=== PATIENT | female | born 1960 | race Caucasian/White ===

== ENCOUNTER 2017-05-25 19:14 | Inpatient (IN) | payer SELFPAY ==
[~2017-05-25] VITALS: Ht 171.4 cm; Wt 168.5 kg
[~2017-05-25 19:14] MED LIST: ACET325T9 PO; CARV3.122 PO; IBUP200T58 PO; IPRA3AMP NEB; LISI2.5T PO
[2017-05-25 22:30] VITALS: BP 114/71
[2017-05-25 23:00] VITALS: BP 129/76
[2017-05-25] MEDS ORDERED: hydrALAZINE 20 MG/ML VIAL. IVP PRN (23:00)
[2017-05-25] MEDS ORDERED: diphenhydrAMINE HCL 25 MG CAPSULE PO PRN (23:00)
[2017-05-25] MEDS ORDERED: ONDANSETRON ODT 4 MG TAB.RAPDIS. PO PRN (23:00)
[2017-05-25] MEDS ORDERED: ACETAMINOPHEN 325 MG TABLET. PO PRN (23:00)
[2017-05-25] MEDS ORDERED: 0.9 % SODIUM CHLORIDE 10 ML DISP.SYRIN. IV PRN (23:00)
[2017-05-25] MEDS ORDERED: VANCOMYCIN 1 GM in IV NORMAL SALINE 250ML 250 ML IV SCH (23:00)
[2017-05-25] MEDS ORDERED: METOCLOPRAMIDE HCL 10 MG/2 ML VIAL. IV PRN (23:00)
[2017-05-25] MEDS ORDERED: VANCOMYCIN PER PHARMACY MC PRN (23:00)
[2017-05-25] MEDS ORDERED: BISACODYL 10 MG SUPP.RECT. PR PRN (23:00)
[2017-05-25] MEDS: POTASSIUM CL 20MEQ-0.45% NACL 1,000 ML IV SCH (23:37)
[2017-05-25] MEDS: AZITHROMYCIN 500 MG in IV NORMAL SALINE 250ML 250 ML IV SCH (23:37)
[2017-05-25 23:42] VITALS: BP 114/71
--- NOTE | 2017-05-25 23:53 | PDOC1 ---
History and Physical Date of Admission Date of Admission DATE: 05/25/17 TIME: 23:17 Identification/Chief Complaint Chief Complaint cellulitis dysphagia abn CT chest Problems: Source Source: Patient History of Present Illness History of Present Illness Mrs Hannah is a 57 y/o morbidly obese Woman who had presented with abd swelling and erythema below her belt on her pannus as well as on her lower legs to the ER at [facility]. She was started on broad spectrum antibiotics incl vanco with some improvement in her legs, but growing area erythema on her abdomen (suspicious for red man syndrome). Her upper abd swelling improved, but she developed worsening dysphagia, and nausea. She relates that she has had episodic dysphagia for the past year, with feeling of food getting stuck in her upper chest. Nausea is less prominent, but has been present in the past as well. She has not been able to eat today because of it. She endorses constipation, not having had a BM since Thursday. Denies abdominal pain. On further W/U at [facility], she was found with bilateral lung opacities of unclear etiology, infectious vs sarcoid vs malignancy. She is now transferred to [facility] for subspecialty evaluation for her multiple issues Past Medical History Cardiovascular: CHF, HTN Pulmonary: No pertinent hx GI: GERD Past Surgical History Past Surgical History: No pertinent history Family History Family History: Cancer, Heart Disease Social History Smoke: No ALCOHOL: none Drugs: None Current Medications Current Medications Active Scripts Active Lisinopril 2.5 Mg Tablet 2.5 Mg PO DAILY 30 Days Carvedilol 3.125 Mg Tablet 3.125 Mg PO BIDWMEALS 30 Days Reported Duoneb 0.5-3(2.5) Mg/3 Ml (Albuterol/Ipratropium) 3 Ml Ampul.neb 3 Ml NEB QID Allergies Allergies: Coded Allergies: Penicillins (Verified Allergy, Intermediate, severe hives, 04/17/16) ROS Review of System positive as per HPI; rest of ROS is answered negatively Physical Exam Physical Exam massively obese General: Alert, Oriented X3, Cooperative, No acute distress HEENT: Atraumatic, EOMI Lungs: Clear to auscultation, Normal air movement Heart: RRR, no murmurs Abdomen: Normal bowel sounds, Soft, Other (massively obese, organs could not be palpated) Extremities: No clubbing, Other (mildly pitting edema. bilat LE erythema with weeping spot on post R LE, mult excoriations) Skin: Other (cellulitic rash BLE. erythematous rash over lower toso; deep purple discoloration on lower pannus L, cold to touch (?lovenox injection)) Neuro: Normal speech Psych/Mental Status: Other (tearful; state she is all alone after losing brother and mother in the past 4 years. ) VTE Prophylaxis Ordered VTE Prophylaxis Devices: Yes VTE Pharmacological Prophylaxi: No Assessment/Plan Assessment/Plan Mrs Hannah is an unfortunate 57 y/o morbidly obese woman with several ongoing medical isssues: 1. Cellulitis: on LE as well as pannus acc. to patient. She has been on vanco for this. ?developing Red-man syndrome vs ongoing rash on abd. consult ID. 2. Dysphagia and nausea, which have been waxing and waning over the past year. With her body habitus, GERD is high on the list. However, cannot exclude esophageal stricture, gastroparesis or other issues. clear liquids for now, reglan PRN, continue PPI, GI consult 3. Constipation is new for her. has bowel regimen ordered. this may be involved in her nausea as well. 4. Abn CT chest: relatively asymptomatic from a respiratory standpoint. obtain Pulm consult. 5. She has a diagnosis of chronic systolic CHF with and EF of 30% at cath 1 year ago. no CAD was noted at the procedure. her home medications, incl lasix , will be continued. 6. DVT prophylaxis will be obtained with SCDs only, as she has a large area of hematoma on her pannus attributed to an injection. monitor closely for development of gangrenous changes (area is cold to touch) FELIX AN MD May 25, 2017 23:53
[2017-05-26] VITALS (8 sets, daily range): BP systolic 96–124; BP diastolic 53–90
[2017-05-26 04:54] LABS: ALBUMIN 2.9 g/dL (3.4-5.0); ALBUMIN/GLOBULIN RATIO 0.6 (1.0-1.7); CALCIUM 8.3 mg/dL (8.5-10.1); CREATININE 1.5 mg/dL (0.6-1.0); GFR 35.7; POTASSIUM 5.7 mmol/L (3.5-5.1); TOTAL BILIRUBIN 0.7 mg/dL (0.2-1.0); TOTAL PROTEIN 7.6 g/dL (6.4-8.2)
[2017-05-26 04:57] LABS: BASO # 0.1 x10^3/uL (0.0-0.2); BASO % 1 % (0-3); EOS % 7 % (0-3); HEMATOCRIT 40.4 % (36.0-47.0); HEMOGLOBIN 13.4 g/dL (12.0-15.5); LYMPH # 2.4 x10^3/uL (1.0-4.8); LYMPH % 23 % (24-48); MEAN CORPUSCULAR HEMOGLOBIN 30 pg (25-35); MEAN CORPUSCULAR HGB CONC 33 g/dL (31-37); MEAN CORPUSCULAR VOLUME 91 fL (79-100); MONO % 9 % (0-9); NEUT % 60 % (31-73); PLATELET COUNT 249 x10^3/uL (140-400); RED BLOOD COUNT 4.43 x10^6/uL (3.50-5.40); RED CELL DISTRIBUTION WIDTH 14.9 % (11.5-14.5); WHITE BLOOD COUNT 10.5 x10^3/uL (4.0-11.0)
--- NOTE | 2017-05-26 05:04 | ACF ---
Admission Forms Criteria CELLULITIS Clinical Indications for Admission to Inpatient Care (Place 'X' for any and all applicable criteria): Admission is indicated for ANY ONE of the following(1)(2)(3)(4)(5): [ ]I. Limb-threatening infection [ ]II. High-risk comorbid condition as indicated by ANY ONE of the following: [ ]a) Uncontrolled diabetes (eg, HbA1c greater than 10% (0.1)) [ ]b) Cirrhosis [ ]c) Neutropenia [ ]d) Asplenia [ ]e) Immunosuppression [ ]f) Symptomatic heart failure [ ]III. Failure of outpatient therapy as indicated by ALL of the following: [ ]a) Progression or no improvement after adequate trial (minimum of 48 hours, with longer period for stable lower extremity infection) [ ]b) Adequate antibiotic regimen as indicated by use of ANY ONE of the following: [ ]i) First-generation cephalosporin (e.g., cephalexin) [ ]ii) Antistaphylococcal penicillin (e.g., dicloxacillin) [ ]iii) Penicillin-allergic patient regimen (clindamycin, extended-spectrum fluoroquinolone, or doxycycline) [ ]iv) Resistant organism (eg, methicillin-resistant Staphylococcus aureus) regimen (6) [ ]c) Outpatient intravenous therapy regimen is not appropriate due to ANY ONE of the following. (7)(8)(9)(10): [ ]i) It was tried and was not successful (eg, progression of infection). [ ]ii) It is not available or cannot be arranged in a clinically appropriate time frame (e.g., the next day). [ ]iii) Clinical presentation (eg, acuity of infection, rapidity of progression, confirmed or suspected bacteremia) is judged to require ALL of the following: [ ]1) Immediate initiation of intravenous therapy ( eg, cannot wait for next day) [ ]2) Intensity of patient monitoring and observation (eg, vital sign measurement, checks for infection progression) that cannot be provided at other than inpatient level of care [ ]IV. Mental status changes [ ]V. Bacteremia [ ]. Hemodynamic instability [ ]VII. Suspected necrotizing soft tissue infection (e.g., gas in tissue)(11)( 12) [ ]VIII. Orbital infection (13)(14) [ ]IX. Associated surgical procedure (e.g., abscess drainage, debridement) not amenable to outpatient, emergency department, or observation care [ ]X. Cutaneous gangrene [ ]XI. High fever (temperature greater than 39.5 degrees C (103.1 degrees F) (oral)) not responsive to outpatient, emergency department, or observation care therapy [X]XIII. Inpatient admission required rather than observation care (Also use Cellulitis: Observation Care as appropriate) because of ANY ONE of the following : [ ]a) Periorbital or perineal infection that is severe or worsening [ ]b) Severe pain requiring acute inpatient management [ ]c) IV fluid to replace significant ongoing (e.g., for over 24 hours) losses (greater than 3L/m2 per day) [ ]d) Compartment syndrome monitoring (17) [ ]e) Strict or protective (eg, laminar flow) isolation [ ]f) Urgent debridement or skin grafting [ ]g) Bone or joint debridement [ ]h) Immediate inpatient surgery [X]i) Other condition, treatment or monitoring requiring inpatient admission Extended stay beyond goal length of stay may be needed for (1)(18): [ ]a) Necrotizing soft tissue infection or fasciitis [ ]b) Gram-negative infection [ ]c) Methicillin-resistant Staphylococcal aureus (MRSA) infection [ ]d) Peripheral venous insufficiency with cellulitis [ ]e) Extensive edema [ ]f) Sepsis or continued Hemodynamic instability [ ]g) Continued high fever or mental status change [ ]h) Bacteremia [ ]i) Active serious comorbid conditions ( eg, heart failure, renal insufficiency) The original [facility] content created by [facility] has been revised. The portions of the content which have been revised are identified through the use of italic text or in bold, and [facility] has neither reviewed nor approved the modified material. All other unmodified content is copyright [facility] [employer] Please see references footnoted in the original [facility] [employer] edition 2016 Admission Criteria Met?: Yes MARTA LE May 26, 2017 05:04 FELIX AN MD May 26, 2017 18:56
[2017-05-26] MEDS ORDERED: ASPI-482 PO (07:41)
[2017-05-26] MEDS ORDERED: POTASSIUM CHLORIDE 20 MEQ TABLET.ER. PO SCH (08:00)
[2017-05-26] MEDS ORDERED: POLYETHYLENE GLYCOL 3350 17 GM PACKET. PO SCH (09:00)
[2017-05-26] MEDS ORDERED: FUROSEMIDE 40 MG TABLET. PO SCH (09:00)
[2017-05-26] MEDS ORDERED: LISINOPRIL 2.5 MG TABLET PO SCH (09:00)
[2017-05-26] MEDS: ASPIRIN 325 MG TABLET PO SCH (09:18)
[2017-05-26] MEDS: CARVEDILOL 3.125 MG TABLET. PO SCH ×2 (09:18→16:40)
[2017-05-26] MEDS: FLUCONAZOLE 100 MG TABLET. PO SCH (09:19)
[2017-05-26] MEDS: FUROSEMIDE 40 MG TABLET. PO SCH (09:19)
[2017-05-26] MEDS: PRAMIPEXOLE 0.25 MG TABLET. PO SCH ×3 (09:20→20:55)
[2017-05-26] MEDS: NYSTATIN TOPICAL POWDER 15GM BOTTLE. TP SCH ×2 (09:21→20:56)
[2017-05-26] MEDS: FLUOCINONIDE 0.05% TOPICAL CREAM 15 GM TUBE. TP SCH ×2 (09:21→20:56)
--- NOTE | 2017-05-26 09:34 | PDOC2 ---
GI CONSULT Reason For Consult: Dysphagia, ?stricture HPI: HPI: 57 y/o female transferred from [facility] for cellulitis/swelling, apparently some concern for red man syndrome w/ vancomycin. Additionally noted was abnormal chest CT. ID and pulm to see. GI consult requested re: dysphagia. She tells me for "years" has had issues w/ right-sided globus w/ swallowing pills. No problems w/ solids or liquids. No regurg. H/o GERD when her father was alive; she is tearful describing this and tells me he was "lam," but apparently no reflux/heartburn/indigestion since he has passed. Also has had some trouble w/ constipation recently although did have a BM yesterday "but it was slow." No hematochezia or melena. No previous EGD or colonoscopy. PRN use of Tylenol or Advil or ASA for headaches, etc. GI-jean has been started on Miralax QD and Reglan PRN. PMH: PMH: CHF, HTN, HLD, COPD, panic/anxiety/depression, umbilical hernia FH: Family History: CAD, Other (Alzheimer's) Social History: Smoke: Quit ALCOHOL: none Drugs: None ROS: GEN: Denies fevers, chills, sweats HEENT: Denies blurred vision, sore throat CV: Denies chest pain RESP: Denies shortness of air, cough GI: Per HPI : Denies hematuria, dysuria ENDO: Denies weight changes NEURO: Denies confusion, dizziness MSK: Denies weakness, joint pain/swelling SKIN: erythema Vitals: Vitals: Vital Signs Date Time Temp Pulse Resp B/P (MAP) Pulse Ox O2 Delivery O2 Flow Rate FiO2 05/26/17 09:20 90 120/65 05/26/17 07:00 97.6 22 90 Nasal Cannula 2.0 97.6 Labs: Labs: Laboratory Tests Test 05/26/17 03:50 White Blood Count 10.5 x10^3/uL (4.0-11.0) Red Blood Count 4.43 x10^6/uL (3.50-5.40) Hemoglobin 13.4 g/dL (12.0-15.5) Hematocrit 40.4 % (36.0-47.0) Mean Corpuscular Volume 91 fL (79-100) Mean Corpuscular Hemoglobin 30 pg (25-35) Mean Corpuscular Hemoglobin Concent 33 g/dL (31-37) Red Cell Distribution Width 14.9 % (11.5-14.5) Platelet Count 249 x10^3/uL (140-400) Neutrophils (%) (Auto) 60 % (31-73) Lymphocytes (%) (Auto) 23 % (24-48) Monocytes (%) (Auto) 9 % (0-9) Eosinophils (%) (Auto) 7 % (0-3) Basophils (%) (Auto) 1 % (0-3) Neutrophils # (Auto) 6.2 x10^3uL (1.8-7.7) Lymphocytes # (Auto) 2.4 x10^3/uL (1.0-4.8) Monocytes # (Auto) 1.0 x10^3/uL (0.0-1.1) Eosinophils # (Auto) 0.7 x10^3/uL (0.0-0.7) Basophils # (Auto) 0.1 x10^3/uL (0.0-0.2) Sodium Level 139 mmol/L (136-145) Potassium Level 5.7 mmol/L (3.5-5.1) Chloride Level 103 mmol/L (98-107) Carbon Dioxide Level 30 mmol/L (21-32) Anion Gap 6 (6-14) Blood Urea Nitrogen 26 mg/dL (7-20) Creatinine 1.5 mg/dL (0.6-1.0) Estimated GFR (Cockcroft-Gault) 35.7 BUN/Creatinine Ratio 17 (6-20) Glucose Level 115 mg/dL (70-99) Calcium Level 8.3 mg/dL (8.5-10.1) Total Bilirubin 0.7 mg/dL (0.2-1.0) Aspartate Amino Transf (AST/SGOT) 40 U/L (15-37) Alanine Aminotransferase (ALT/SGPT) 27 U/L (14-59) Alkaline Phosphatase 100 U/L (46-116) Total Protein 7.6 g/dL (6.4-8.2) Albumin 2.9 g/dL (3.4-5.0) Albumin/Globulin Ratio 0.6 (1.0-1.7) Allergies: Coded Allergies: Penicillins (Verified Allergy, Intermediate, severe hives, 04/17/16) Medications: Current Medications Medications (Trade) Dose Ordered Sig/Pasquale Route PRN Reason Start Time Stop Time Status Last Admin Dose Admin Fluconazole (Diflucan) 100 mg DAILY PO 05/26/17 09:00 05/26/17 09:19 Vancomycin HCl (Vanco Per Pharmacy) 1 each PRN DAILY PRN MC SEE COMMENTS 05/25/17 23:00 05/26/17 05:48 Aspirin (Anirudh Aspirin) 325 mg DAILYWBKFT PO 05/26/17 08:00 05/26/17 09:18 Carvedilol (Coreg) 3.125 mg BIDWMEALS PO 05/26/17 08:00 05/26/17 09:18 Lisinopril (Prinivil) 2.5 mg DAILY PO 05/26/17 09:00 05/26/17 09:20 Ceftriaxone Sodium 1 gm/ Sodium Chloride 50 ml @ 100 mls/hr QHS IV 05/25/17 23:30 05/25/17 23:36 Azithromycin 500 mg/Sodium Chloride 250 ml @ 250 mls/hr QHS IV 05/25/17 23:30 05/25/17 23:37 Nystatin (Nystop) 1 ria BID TP 05/26/17 09:00 05/26/17 09:21 Polyethylene Glycol (miraLAX PACKET) 17 gm DAILY PO 05/26/17 09:00 05/26/17 09:19 Pramipexole Dihydrochloride (miraPEX) 0.25 mg [id number] PO 05/26/17 09:00 05/26/17 09:20 Furosemide (Lasix) 40 mg DAILY PO 05/26/17 09:00 05/26/17 09:19 Metoclopramide HCl (Reglan) 10 mg PRN Q6HRS PRN IV NAUSEA/VOMITING 05/25/17 23:00 05/26/17 03:15 Potassium Chloride/Sodium Chloride 1,000 ml @ 75 mls/hr [id number] IV 05/25/17 23:00 05/25/17 23:37 Imaging: Imaging: - PE: GEN: NAD, up to chair, obese HEENT: Atraumatic, PERRL LUNGS: clear anteriorly HEART: RRR ABD: BS+, non-tender EXTREMITY: BLE wrapped SKIN: abd erythema NEURO/PSYCH: A & O 3, intermittently tearful when talking about her father and managers A/P: A/P: Cellulitis -atbx per ID Abnormal chest CT -pulm to see Globus/dysphagia -bothersome for years, right-sided, felt only w/ pills, has Reglan PRN ordered H/o GERD, no longer symptomatic -?associated w/ stress Constipation -more recent onset, has Miralax ordered CRC screen -no previous colonoscopy -- Empirically treat for GERD w/ PPI, also increase Miralax. No emergent need for EGD; however, will check barium swallow (?Zenker's). JUNIE PEOPLES May 26, 2017 09:34
[2017-05-26] MEDS ORDERED: SIMETHICONE/SOD BICARB/CITRIC ACID PACKET. PO ONE (10:30)
[2017-05-26] MEDS ORDERED: BARIUM SULFATE 340 GM SUSPENSION. PO ONE (10:30)
[2017-05-26] MEDS ORDERED: BARIUM SULFATE 60% 355 ML SUSP PO ONE (10:30)
--- NOTE | 2017-05-26 11:51 | RAD ---
Esophagram, 05/26/2017: History: Dysphagia, pulmonary. The study was performed utilizing thin liquid barium. 1.7 minutes of fluoroscopy time was utilized. 6 static and dynamic fluoroscopic sequences were recorded. The swallowing mechanism is intact. There is normal flow of contrast through the cervical esophagus. No Zenker's diverticulum or obstructive process is seen. The esophageal peristalsis is within normal limits. There is a small sliding-type hiatal hernia with a nonobstructive Schatzki's ring. No gastroesophageal reflux was demonstrated. IMPRESSION: 1. Small sliding-type hiatal hernia. 2. Otherwise negative esophagram
[2017-05-26] MEDS: PANTOPRAZOLE 40 MG TABLET.DR. PO SCH (12:11)
--- NOTE | 2017-05-26 12:52 | PDOC2 ---
CONSULT Date of Consult Date of Consult DATE: 05/26/17 TIME: 12:46 Reason for Consult Reason for Consult: abnormal ct chest Identification/Chief Complaint Chief Complaint cough Problems: History of Present Illness Reason for Visit: Mrs Hannah is a 57 y/o morbidly obese Woman who had presented with abd swelling and erythema below her belt on her pannus as well as on her lower legs to the ER at [facility]. She was started on broad spectrum antibiotics incl vanco with some improvement in her legs, but growing area erythema on her abdomen (suspicious for red man syndrome). Her upper abd swelling improved, but she developed worsening dysphagia, and nausea. She relates that she has had episodic dysphagia for the past year, with feeling of food getting stuck in her upper chest. Nausea is less prominent, but has been present in the past as well. She has not been able to eat today because of it. She endorses constipation, not having had a BM since Thursday. Denies abdominal pain. On further W/U at [facility], she was found with bilateral lung opacities of unclear etiology, infectious vs sarcoid vs malignancy. She is now transferred to [facility] for subspecialty evaluation for her multiple issues Past Medical History Cardiovascular: CHF, HTN Pulmonary: No pertinent hx GI: GERD Past Surgical History Past Surgical History: No pertinent history Family History Family History: Cancer, Heart Disease Social History Quit ALCOHOL: none Drugs: None Current Medications Current Medications Current Medications Fluconazole (Diflucan) 100 mg DAILY PO Last administered on 05/26/17 09:19; Start 05/26/17 at 09:00 Vancomycin HCl (Vanco Per Pharmacy) 1 each PRN DAILY PRN MC SEE COMMENTS Last administered on 05/26/17 05:48; Start 05/25/17 at 23:00 Acetaminophen (Tylenol) 650 mg PRN Q6HRS PRN PO MILD PAIN; Start 05/25/17 at 23 :00 Aspirin (Anirudh Aspirin) 325 mg DAILYWBKFT PO Last administered on 05/26/17 09: 18; Start 05/26/17 at 08:00 Carvedilol (Coreg) 3.125 mg BIDWMEALS PO Last administered on 05/26/17 09:18; Start 05/26/17 at 08:00 Hydralazine HCl (Apresoline) 10 mg PRN Q6HRS PRN IVP ELEVATED BP, SEE COMMENTS ; Start 05/25/17 at 23:00 Lisinopril (Prinivil) 2.5 mg DAILY PO Last administered on 05/26/17 09:20; Start 05/26/17 at 09:00 Potassium Chloride (Klor-Con) 20 meq DAILYWBKFT PO ; Start 05/26/17 at 08:00 Albuterol/ Ipratropium (Duoneb) 3 ml RTQID NEB ; Start 05/26/17 at 08:00 Ondansetron HCl (Zofran Odt) 4 mg PRN Q8HRS PRN PO NAUSEA/VOMITING; Start 05/25 at 23:00 Ceftriaxone Sodium 1 gm/ Sodium Chloride 50 ml @ 100 mls/hr QHS IV Last administered on 05/25/17 23:36; Start 05/25/17 at 23:30 Azithromycin 500 mg/Sodium Chloride 250 ml @ 250 mls/hr QHS IV Last administered on 05/25/17 23:37; Start 05/25/17 at 23:30 Nystatin (Nystop) 1 ria BID TP Last administered on 05/26/17 09:21; Start 10/02 at 09:00 Diphenhydramine HCl (Benadryl) 25 mg PRN Q6HRS PRN PO ITCHING; Start 05/25/17 at 23:00 Enoxaparin Sodium (Lovenox 60mg Syringe) 60 mg Q12HR SQ ; Start 05/26/17 at 09: 00 Polyethylene Glycol (miraLAX PACKET) 17 gm DAILY PO Last administered on 09:19; Start 05/26/17 at 09:00; Stop 05/26/17 at 09:35; Status DC Pramipexole Dihydrochloride (miraPEX) 0.25 mg [id number] PO Last administered on 09:20; Start 05/26/17 at 09:00 Bisacodyl (Dulcolax Supp) 10 mg PRN DAILY PRN [place] CONSTIPATION; Start 05/25/17 at 23:00 Furosemide (Lasix) 40 mg DAILY PO ; Start 05/26/17 at 09:00; Status UNV Fluocinonide (Lidex) 1 ria BID TP ; Start 05/26/17 at 09:00 Vancomycin HCl 1 gm/Sodium Chloride 250 ml @ 250 mls/hr Q24H IV ; Start at 23:00; Status UNV Furosemide (Lasix) 40 mg DAILY PO Last administered on 05/26/17 09:19; Start 05/26/17 at 09:00 Metoclopramide HCl (Reglan) 10 mg PRN Q6HRS PRN IV NAUSEA/VOMITING Last administered on 05/26/17 03:15; Start 05/25/17 at 23:00 Sodium Chloride (Normal Saline Flush) 3 ml PRN DAILY PRN IV AFTER MEDS AND BLOOD DRAWS; Start 05/25/17 at 23:00 Potassium Chloride/Sodium Chloride 1,000 ml @ 75 mls/hr [id number] IV Last administered on 05/25/17 23:37; Start 05/25/17 at 23:00 Vancomycin HCl 1 each 1X ONCE MC ; Start 05/26/17 at 17:30; Stop 05/26/17 at 17 :31 Vancomycin HCl 2 gm/Sodium Chloride 500 ml @ 250 mls/hr Q24H IV ; Start at 18:00 Polyethylene Glycol (miraLAX PACKET) 17 gm BID PO ; Start 05/26/17 at 21:00 Pantoprazole Sodium (Protonix) 40 mg DAILYAC PO ; Start 05/26/17 at 11:30 Barium Sulfate (Liquid E-Z Paque) 355 ml 1X ONCE PO Last administered on 11:14; Start 05/26/17 at 10:30; Stop 05/26/17 at 10:31; Status DC Barium Sulfate (E-Z-Hd) 340 gm 1X ONCE PO ; Start 05/26/17 at 10:30; Stop 05/26 at 10:31; Status DC Simethicone/ Sodium Bicarb/ Citric Ac (E-Z-Gas) 1 packet 1X ONCE PO ; Start 10/02 at 10:30; Stop 05/26/17 at 10:31; Status DC Active Scripts Active Lisinopril 2.5 Mg Tablet 2.5 Mg PO DAILY 30 Days Carvedilol 3.125 Mg Tablet 3.125 Mg PO BIDWMEALS 30 Days Reported Aspir 81 (Aspirin) 81 Mg Tablet.dr 1 Tab PO DAILY Duoneb 0.5-3(2.5) Mg/3 Ml (Albuterol/Ipratropium) 3 Ml Ampul.neb 3 Ml NEB QID Allergies Allergies: Coded Allergies: Penicillins (Verified Allergy, Intermediate, severe hives, 04/17/16) ROS Review of System as discussed in h/o present illness Physical Exam General: Alert, Oriented X3, No acute distress Lungs: Clear to auscultation Heart: Regular rate, Normal S1 Abdomen: Other (cellulitis lower abdomen) Extremities: No clubbing Psych/Mental Status: Mental status NL Vitals VITALS Vital Signs Date Time Temp Pulse Resp B/P (MAP) Pulse Ox O2 Delivery O2 Flow Rate FiO2 05/26/17 11:00 98.3 89 22 124/90 (101) 90 Nasal Cannula 2.0 98.3 Labs Labs Laboratory Tests Test 05/26/17 03:50 White Blood Count 10.5 x10^3/uL (4.0-11.0) Red Blood Count 4.43 x10^6/uL (3.50-5.40) Hemoglobin 13.4 g/dL (12.0-15.5) Hematocrit 40.4 % (36.0-47.0) Mean Corpuscular Volume 91 fL (79-100) Mean Corpuscular Hemoglobin 30 pg (25-35) Mean Corpuscular Hemoglobin Concent 33 g/dL (31-37) Red Cell Distribution Width 14.9 % (11.5-14.5) Platelet Count 249 x10^3/uL (140-400) Neutrophils (%) (Auto) 60 % (31-73) Lymphocytes (%) (Auto) 23 % (24-48) Monocytes (%) (Auto) 9 % (0-9) Eosinophils (%) (Auto) 7 % (0-3) Basophils (%) (Auto) 1 % (0-3) Neutrophils # (Auto) 6.2 x10^3uL (1.8-7.7) Lymphocytes # (Auto) 2.4 x10^3/uL (1.0-4.8) Monocytes # (Auto) 1.0 x10^3/uL (0.0-1.1) Eosinophils # (Auto) 0.7 x10^3/uL (0.0-0.7) Basophils # (Auto) 0.1 x10^3/uL (0.0-0.2) Sodium Level 139 mmol/L (136-145) Potassium Level 5.7 mmol/L (3.5-5.1) Chloride Level 103 mmol/L (98-107) Carbon Dioxide Level 30 mmol/L (21-32) Anion Gap 6 (6-14) Blood Urea Nitrogen 26 mg/dL (7-20) Creatinine 1.5 mg/dL (0.6-1.0) Estimated GFR (Cockcroft-Gault) 35.7 BUN/Creatinine Ratio 17 (6-20) Glucose Level 115 mg/dL (70-99) Calcium Level 8.3 mg/dL (8.5-10.1) Total Bilirubin 0.7 mg/dL (0.2-1.0) Aspartate Amino Transf (AST/SGOT) 40 U/L (15-37) Alanine Aminotransferase (ALT/SGPT) 27 U/L (14-59) Alkaline Phosphatase 100 U/L (46-116) Total Protein 7.6 g/dL (6.4-8.2) Albumin 2.9 g/dL (3.4-5.0) Albumin/Globulin Ratio 0.6 (1.0-1.7) Laboratory Tests Test 05/26/17 03:50 White Blood Count 10.5 x10^3/uL (4.0-11.0) Red Blood Count 4.43 x10^6/uL (3.50-5.40) Hemoglobin 13.4 g/dL (12.0-15.5) Hematocrit 40.4 % (36.0-47.0) Mean Corpuscular Volume 91 fL (79-100) Mean Corpuscular Hemoglobin 30 pg (25-35) Mean Corpuscular Hemoglobin Concent 33 g/dL (31-37) Red Cell Distribution Width 14.9 % (11.5-14.5) Platelet Count 249 x10^3/uL (140-400) Neutrophils (%) (Auto) 60 % (31-73) Lymphocytes (%) (Auto) 23 % (24-48) Monocytes (%) (Auto) 9 % (0-9) Eosinophils (%) (Auto) 7 % (0-3) Basophils (%) (Auto) 1 % (0-3) Neutrophils # (Auto) 6.2 x10^3uL (1.8-7.7) Lymphocytes # (Auto) 2.4 x10^3/uL (1.0-4.8) Monocytes # (Auto) 1.0 x10^3/uL (0.0-1.1) Eosinophils # (Auto) 0.7 x10^3/uL (0.0-0.7) Basophils # (Auto) 0.1 x10^3/uL (0.0-0.2) Sodium Level 139 mmol/L (136-145) Potassium Level 5.7 mmol/L (3.5-5.1) Chloride Level 103 mmol/L (98-107) Carbon Dioxide Level 30 mmol/L (21-32) Anion Gap 6 (6-14) Blood Urea Nitrogen 26 mg/dL (7-20) Creatinine 1.5 mg/dL (0.6-1.0) Estimated GFR (Cockcroft-Gault) 35.7 BUN/Creatinine Ratio 17 (6-20) Glucose Level 115 mg/dL (70-99) Calcium Level 8.3 mg/dL (8.5-10.1) Total Bilirubin 0.7 mg/dL (0.2-1.0) Aspartate Amino Transf (AST/SGOT) 40 U/L (15-37) Alanine Aminotransferase (ALT/SGPT) 27 U/L (14-59) Alkaline Phosphatase 100 U/L (46-116) Total Protein 7.6 g/dL (6.4-8.2) Albumin 2.9 g/dL (3.4-5.0) Albumin/Globulin Ratio 0.6 (1.0-1.7) Assessment/Plan Assessment/Plan 1. Abnormal ct chest with bilateral lung opacities of unclear etiology, infectious vs sarcoid vs malignancy (lymphoma). These findings were also seen in 2016 ct chest but axillary adenopathy have increased/ ? lymphoma vs sarcoid. An infectious component cannot be ruled out due to recent vomiting with suspected aspiration 2. Panniculitis 3. 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 Morbid obesity Plan 1. Antibiotic 2. consider axillary LN biopsy 3. Oncology consult 4. repeat CXR in few days SANDEEP SERRANO MD May 26, 2017 12:52
[2017-05-26] MEDS: POTASSIUM CL 20MEQ-0.45% NACL 1,000 ML IV SCH (13:02)
--- NOTE | 2017-05-26 14:39 | PDOC ---
PROGRESS NOTES Chief Complaint Chief Complaint . 1. Cellultis, on abx, consult ID. 2. Dysphagia and nausea, which have been waxing and waning over the past year. 3. Constipation w/ abd pain and distention 4. lymphedema LE 5. acute onchronic systolic CHF with and EF of 30% 6. morbid obesity, BMI 57 7. Hyperkalemia 8. Acute vasomotor on CKD 3 History of Present Illness History of Present Illness Le edema, has stooled X3, her abd feels better weakness, not able to ambulate well Vitals Vitals Vital Signs Date Time Temp Pulse Resp B/P (MAP) Pulse Ox O2 Delivery O2 Flow Rate FiO2 05/26/17 11:00 98.3 89 22 124/90 (101) 90 Nasal Cannula 2.0 98.3 Physical Exam General: Alert, Oriented X3, No acute distress Heart: Regular rate, Normal S1 Lungs: Clear Abdomen: Soft (very obese), Other (cellulitis lower abdomen) Extremities: No clubbing Skin: Other (cellulitic rash BLE. erythematous rash over lower toso; deep purple discoloration on lower pannus L, cold to touch (?lovenox injection)) Labs LABS Laboratory Tests Test 05/26/17 03:50 White Blood Count 10.5 x10^3/uL (4.0-11.0) Red Blood Count 4.43 x10^6/uL (3.50-5.40) Hemoglobin 13.4 g/dL (12.0-15.5) Hematocrit 40.4 % (36.0-47.0) Mean Corpuscular Volume 91 fL (79-100) Mean Corpuscular Hemoglobin 30 pg (25-35) Mean Corpuscular Hemoglobin Concent 33 g/dL (31-37) Red Cell Distribution Width 14.9 % (11.5-14.5) Platelet Count 249 x10^3/uL (140-400) Neutrophils (%) (Auto) 60 % (31-73) Lymphocytes (%) (Auto) 23 % (24-48) Monocytes (%) (Auto) 9 % (0-9) Eosinophils (%) (Auto) 7 % (0-3) Basophils (%) (Auto) 1 % (0-3) Neutrophils # (Auto) 6.2 x10^3uL (1.8-7.7) Lymphocytes # (Auto) 2.4 x10^3/uL (1.0-4.8) Monocytes # (Auto) 1.0 x10^3/uL (0.0-1.1) Eosinophils # (Auto) 0.7 x10^3/uL (0.0-0.7) Basophils # (Auto) 0.1 x10^3/uL (0.0-0.2) Sodium Level 139 mmol/L (136-145) Potassium Level 5.7 mmol/L (3.5-5.1) Chloride Level 103 mmol/L (98-107) Carbon Dioxide Level 30 mmol/L (21-32) Anion Gap 6 (6-14) Blood Urea Nitrogen 26 mg/dL (7-20) Creatinine 1.5 mg/dL (0.6-1.0) Estimated GFR (Cockcroft-Gault) 35.7 BUN/Creatinine Ratio 17 (6-20) Glucose Level 115 mg/dL (70-99) Calcium Level 8.3 mg/dL (8.5-10.1) Total Bilirubin 0.7 mg/dL (0.2-1.0) Aspartate Amino Transf (AST/SGOT) 40 U/L (15-37) Alanine Aminotransferase (ALT/SGPT) 27 U/L (14-59) Alkaline Phosphatase 100 U/L (46-116) Total Protein 7.6 g/dL (6.4-8.2) Albumin 2.9 g/dL (3.4-5.0) Albumin/Globulin Ratio 0.6 (1.0-1.7) Review of Systems Review of Systems nausea poor PO intake weakness Assessment and Plan Assessmemt and Plan sx control Pt and OT hold potassium, hold IV fluid, lasix given Problems: Comment Review of Relevant I have reviewed the following items feli (where applicable) has been applied. Labs Laboratory Tests Test 05/26/17 03:50 White Blood Count 10.5 x10^3/uL (4.0-11.0) Red Blood Count 4.43 x10^6/uL (3.50-5.40) Hemoglobin 13.4 g/dL (12.0-15.5) Hematocrit 40.4 % (36.0-47.0) Mean Corpuscular Volume 91 fL (79-100) Mean Corpuscular Hemoglobin 30 pg (25-35) Mean Corpuscular Hemoglobin Concent 33 g/dL (31-37) Red Cell Distribution Width 14.9 % (11.5-14.5) Platelet Count 249 x10^3/uL (140-400) Neutrophils (%) (Auto) 60 % (31-73) Lymphocytes (%) (Auto) 23 % (24-48) Monocytes (%) (Auto) 9 % (0-9) Eosinophils (%) (Auto) 7 % (0-3) Basophils (%) (Auto) 1 % (0-3) Neutrophils # (Auto) 6.2 x10^3uL (1.8-7.7) Lymphocytes # (Auto) 2.4 x10^3/uL (1.0-4.8) Monocytes # (Auto) 1.0 x10^3/uL (0.0-1.1) Eosinophils # (Auto) 0.7 x10^3/uL (0.0-0.7) Basophils # (Auto) 0.1 x10^3/uL (0.0-0.2) Sodium Level 139 mmol/L (136-145) Potassium Level 5.7 mmol/L (3.5-5.1) Chloride Level 103 mmol/L (98-107) Carbon Dioxide Level 30 mmol/L (21-32) Anion Gap 6 (6-14) Blood Urea Nitrogen 26 mg/dL (7-20) Creatinine 1.5 mg/dL (0.6-1.0) Estimated GFR (Cockcroft-Gault) 35.7 BUN/Creatinine Ratio 17 (6-20) Glucose Level 115 mg/dL (70-99) Calcium Level 8.3 mg/dL (8.5-10.1) Total Bilirubin 0.7 mg/dL (0.2-1.0) Aspartate Amino Transf (AST/SGOT) 40 U/L (15-37) Alanine Aminotransferase (ALT/SGPT) 27 U/L (14-59) Alkaline Phosphatase 100 U/L (46-116) Total Protein 7.6 g/dL (6.4-8.2) Albumin 2.9 g/dL (3.4-5.0) Albumin/Globulin Ratio 0.6 (1.0-1.7) Laboratory Tests Test 05/26/17 03:50 White Blood Count 10.5 x10^3/uL (4.0-11.0) Red Blood Count 4.43 x10^6/uL (3.50-5.40) Hemoglobin 13.4 g/dL (12.0-15.5) Hematocrit 40.4 % (36.0-47.0) Mean Corpuscular Volume 91 fL (79-100) Mean Corpuscular Hemoglobin 30 pg (25-35) Mean Corpuscular Hemoglobin Concent 33 g/dL (31-37) Red Cell Distribution Width 14.9 % (11.5-14.5) Platelet Count 249 x10^3/uL (140-400) Neutrophils (%) (Auto) 60 % (31-73) Lymphocytes (%) (Auto) 23 % (24-48) Monocytes (%) (Auto) 9 % (0-9) Eosinophils (%) (Auto) 7 % (0-3) Basophils (%) (Auto) 1 % (0-3) Neutrophils # (Auto) 6.2 x10^3uL (1.8-7.7) Lymphocytes # (Auto) 2.4 x10^3/uL (1.0-4.8) Monocytes # (Auto) 1.0 x10^3/uL (0.0-1.1) Eosinophils # (Auto) 0.7 x10^3/uL (0.0-0.7) Basophils # (Auto) 0.1 x10^3/uL (0.0-0.2) Sodium Level 139 mmol/L (136-145) Potassium Level 5.7 mmol/L (3.5-5.1) Chloride Level 103 mmol/L (98-107) Carbon Dioxide Level 30 mmol/L (21-32) Anion Gap 6 (6-14) Blood Urea Nitrogen 26 mg/dL (7-20) Creatinine 1.5 mg/dL (0.6-1.0) Estimated GFR (Cockcroft-Gault) 35.7 BUN/Creatinine Ratio 17 (6-20) Glucose Level 115 mg/dL (70-99) Calcium Level 8.3 mg/dL (8.5-10.1) Total Bilirubin 0.7 mg/dL (0.2-1.0) Aspartate Amino Transf (AST/SGOT) 40 U/L (15-37) Alanine Aminotransferase (ALT/SGPT) 27 U/L (14-59) Alkaline Phosphatase 100 U/L (46-116) Total Protein 7.6 g/dL (6.4-8.2) Albumin 2.9 g/dL (3.4-5.0) Albumin/Globulin Ratio 0.6 (1.0-1.7) Medications Current Medications Fluconazole (Diflucan) 100 mg DAILY PO Last administered on 05/26/17 09:19; Start 05/26/17 at 09:00 Vancomycin HCl (Vanco Per Pharmacy) 1 each PRN DAILY PRN MC SEE COMMENTS Last administered on 05/26/17 05:48; Start 05/25/17 at 23:00 Acetaminophen (Tylenol) 650 mg PRN Q6HRS PRN PO MILD PAIN; Start 05/25/17 at 23 :00 Aspirin (Anirudh Aspirin) 325 mg DAILYWBKFT PO Last administered on 05/26/17 09: 18; Start 05/26/17 at 08:00 Carvedilol (Coreg) 3.125 mg BIDWMEALS PO Last administered on 05/26/17 09:18; Start 05/26/17 at 08:00 Hydralazine HCl (Apresoline) 10 mg PRN Q6HRS PRN IVP ELEVATED BP, SEE COMMENTS ; Start 05/25/17 at 23:00 Lisinopril (Prinivil) 2.5 mg DAILY PO Last administered on 05/26/17 09:20; Start 05/26/17 at 09:00 Potassium Chloride (Klor-Con) 20 meq DAILYWBKFT PO ; Start 05/26/17 at 08:00 Albuterol/ Ipratropium (Duoneb) 3 ml RTQID NEB ; Start 05/26/17 at 08:00 Ondansetron HCl (Zofran Odt) 4 mg PRN Q8HRS PRN PO NAUSEA/VOMITING; Start 05/25 at 23:00 Ceftriaxone Sodium 1 gm/ Sodium Chloride 50 ml @ 100 mls/hr QHS IV Last administered on 05/25/17 23:36; Start 05/25/17 at 23:30 Azithromycin 500 mg/Sodium Chloride 250 ml @ 250 mls/hr QHS IV Last administered on 05/25/17 23:37; Start 05/25/17 at 23:30 Nystatin (Nystop) 1 ria BID TP Last administered on 05/26/17 09:21; Start 10/02 at 09:00 Diphenhydramine HCl (Benadryl) 25 mg PRN Q6HRS PRN PO ITCHING; Start 05/25/17 at 23:00 Enoxaparin Sodium (Lovenox 60mg Syringe) 60 mg Q12HR SQ ; Start 05/26/17 at 09: 00; Stop 05/26/17 at 13:14; Status DC Polyethylene Glycol (miraLAX PACKET) 17 gm DAILY PO Last administered on 09:19; Start 05/26/17 at 09:00; Stop 05/26/17 at 09:35; Status DC Pramipexole Dihydrochloride (miraPEX) 0.25 mg [id number] PO Last administered on 09:20; Start 05/26/17 at 09:00 Bisacodyl (Dulcolax Supp) 10 mg PRN DAILY PRN [place] CONSTIPATION; Start 05/25/17 at 23:00 Furosemide (Lasix) 40 mg DAILY PO ; Start 05/26/17 at 09:00; Status UNV Fluocinonide (Lidex) 1 ria BID TP ; Start 05/26/17 at 09:00 Vancomycin HCl 1 gm/Sodium Chloride 250 ml @ 250 mls/hr Q24H IV ; Start at 23:00; Status UNV Furosemide (Lasix) 40 mg DAILY PO Last administered on 05/26/17 09:19; Start 05/26/17 at 09:00 Metoclopramide HCl (Reglan) 10 mg PRN Q6HRS PRN IV NAUSEA/VOMITING Last administered on 05/26/17 03:15; Start 05/25/17 at 23:00 Sodium Chloride (Normal Saline Flush) 3 ml PRN DAILY PRN IV AFTER MEDS AND BLOOD DRAWS; Start 05/25/17 at 23:00 Potassium Chloride/Sodium Chloride 1,000 ml @ 75 mls/hr [id number] IV Last administered on 05/25/17 23:37; Start 05/25/17 at 23:00 Vancomycin HCl 1 each 1X ONCE MC ; Start 05/26/17 at 17:30; Stop 05/26/17 at 17 :31 Vancomycin HCl 2 gm/Sodium Chloride 500 ml @ 250 mls/hr Q24H IV ; Start at 18:00 Polyethylene Glycol (miraLAX PACKET) 17 gm BID PO ; Start 05/26/17 at 21:00 Pantoprazole Sodium (Protonix) 40 mg DAILYAC PO ; Start 05/26/17 at 11:30 Barium Sulfate (Liquid E-Z Paque) 355 ml 1X ONCE PO Last administered on t 11:14; Start 05/26/17 at 10:30; Stop 05/26/17 at 10:31; Status DC Barium Sulfate (E-Z-Hd) 340 gm 1X ONCE PO ; Start 05/26/17 at 10:30; Stop 05/26 at 10:31; Status DC Simethicone/ Sodium Bicarb/ Citric Ac (E-Z-Gas) 1 packet 1X ONCE PO ; Start 10/02 at 10:30; Stop 05/26/17 at 10:31; Status DC Active Scripts Active Lisinopril 2.5 Mg Tablet 2.5 Mg PO DAILY 30 Days Carvedilol 3.125 Mg Tablet 3.125 Mg PO BIDWMEALS 30 Days Reported Aspir 81 (Aspirin) 81 Mg Tablet.dr 1 Tab PO DAILY Duoneb 0.5-3(2.5) Mg/3 Ml (Albuterol/Ipratropium) 3 Ml Ampul.neb 3 Ml NEB QID Vitals/I & O Vital Sign - Last 24 Hours 05/25/17 05/25/17 05/26/17 05/26/17 22:30 23:00 02:20 03:00 Temp 98.8 98.6 98.8 98.6 Pulse 97 88 88 Resp 20 20 21 B/P (MAP) 114/71 (85) 129/76 (93) 123/73 (90) Pulse Ox 93 92 98 O2 Delivery Room Air Room Air Nasal Cannula Nasal Cannula O2 Flow Rate 2.0 2.0 05/26/17 05/26/17 05/26/17 05/26/17 07:00 08:00 09:18 09:20 Temp 97.6 97.6 Pulse 90 90 90 Resp 22 B/P (MAP) 120/65 (83) 120/65 120/65 Pulse Ox 90 O2 Delivery Nasal Cannula Room Air O2 Flow Rate 2.0 05/26/17 11:00 Temp 98.3 98.3 Pulse 89 Resp 22 B/P (MAP) 124/90 (101) Pulse Ox 90 O2 Delivery Nasal Cannula O2 Flow Rate 2.0 Intake and Output 05/25/17 05/25/17 05/26/17 15:00 23:00 07:00 Intake Total 0 ml Output Total 0 ml Balance 0 ml BEATRIS FOSTER MD May 26, 2017 14:39
--- NOTE | 2017-05-26 14:57 | PDOC2 ---
CONSULT Date of Consult Date of Consult DATE: 05/26/17 TIME: 14:42 Reason for Consult Reason for Consult: axillary adenopathy Referring Physician Referring Physician: Madi History of Present Illness Reason for Visit: Pt was at [facility] for worsening edema, abd distention, cellulitis of b/l LE and pannus. Known CHF, EF 30%, does not take any meds due to no insurance. Dysphagia for years, recent vomiting with solid foods. CTA at [facility] showed bilateral lung groundglass opacities, 5.4 cm left axillary LAD, mediastinal LAD. U/S LE neg. Distention has improved since starting diuretics. Denies recurrent fevers, chills, night sweats, weight loss. Past Medical History Past Medical History CHF, HTN, HLD, cellulitis, Obesity, uninsured Cardiovascular: CHF, HTN Pulmonary: No pertinent hx GI: GERD Past Surgical History Past Surgical History neg Past Surgical History: No pertinent history Family History Family History Mom CKD Brother- from [place] age 47 Dad- Decreased, unknown cause Family History: Cancer, Heart Disease Social History Social History 1 PPD x 10 yr, quit 2013 NO EtOH Lives alone Uninsured Quit ALCOHOL: none Drugs: None Current Medications Current Medications Current Medications Fluconazole (Diflucan) 100 mg DAILY PO Last administered on 05/26/17 09:19; Start 05/26/17 at 09:00 Vancomycin HCl (Vanco Per Pharmacy) 1 each PRN DAILY PRN MC SEE COMMENTS Last administered on 05/26/17 05:48; Start 05/25/17 at 23:00 Acetaminophen (Tylenol) 650 mg PRN Q6HRS PRN PO MILD PAIN; Start 05/25/17 at 23 :00 Aspirin (Anirudh Aspirin) 325 mg DAILYWBKFT PO Last administered on 05/26/17 09: 18; Start 05/26/17 at 08:00 Carvedilol (Coreg) 3.125 mg BIDWMEALS PO Last administered on 05/26/17 09:18; Start 05/26/17 at 08:00 Hydralazine HCl (Apresoline) 10 mg PRN Q6HRS PRN IVP ELEVATED BP, SEE COMMENTS ; Start 05/25/17 at 23:00 Lisinopril (Prinivil) 2.5 mg DAILY PO Last administered on 05/26/17 09:20; Start 05/26/17 at 09:00 Potassium Chloride (Klor-Con) 20 meq DAILYWBKFT PO ; Start 05/26/17 at 08:00; Stop 05/26/17 at 14:36; Status DC Albuterol/ Ipratropium (Duoneb) 3 ml RTQID NEB ; Start 05/26/17 at 08:00 Ondansetron HCl (Zofran Odt) 4 mg PRN Q8HRS PRN PO NAUSEA/VOMITING; Start 05/25 at 23:00 Ceftriaxone Sodium 1 gm/ Sodium Chloride 50 ml @ 100 mls/hr QHS IV Last administered on 05/25/17 23:36; Start 05/25/17 at 23:30 Azithromycin 500 mg/Sodium Chloride 250 ml @ 250 mls/hr QHS IV Last administered on 05/25/17 23:37; Start 05/25/17 at 23:30 Nystatin (Nystop) 1 ria BID TP Last administered on 05/26/17 09:21; Start 10/02 at 09:00 Diphenhydramine HCl (Benadryl) 25 mg PRN Q6HRS PRN PO ITCHING; Start 05/25/17 at 23:00 Enoxaparin Sodium (Lovenox 60mg Syringe) 60 mg Q12HR SQ ; Start 05/26/17 at 09: 00; Stop 05/26/17 at 13:14; Status DC Polyethylene Glycol (miraLAX PACKET) 17 gm DAILY PO Last administered on 09:19; Start 05/26/17 at 09:00; Stop 05/26/17 at 09:35; Status DC Pramipexole Dihydrochloride (miraPEX) 0.25 mg [id number] PO Last administered on 09:20; Start 05/26/17 at 09:00 Bisacodyl (Dulcolax Supp) 10 mg PRN DAILY PRN [place] CONSTIPATION; Start 05/25/17 at 23:00 Furosemide (Lasix) 40 mg DAILY PO ; Start 05/26/17 at 09:00; Status UNV Fluocinonide (Lidex) 1 ria BID TP ; Start 05/26/17 at 09:00 Vancomycin HCl 1 gm/Sodium Chloride 250 ml @ 250 mls/hr Q24H IV ; Start at 23:00; Status UNV Furosemide (Lasix) 40 mg DAILY PO Last administered on 05/26/17 09:19; Start 05/26/17 at 09:00 Metoclopramide HCl (Reglan) 10 mg PRN Q6HRS PRN IV NAUSEA/VOMITING Last administered on 05/26/17 03:15; Start 05/25/17 at 23:00 Sodium Chloride (Normal Saline Flush) 3 ml PRN DAILY PRN IV AFTER MEDS AND BLOOD DRAWS; Start 05/25/17 at 23:00 Potassium Chloride/Sodium Chloride 1,000 ml @ 75 mls/hr [id number] IV Last administered on 05/25/17 23:37; Start 05/25/17 at 23:00 Vancomycin HCl 1 each 1X ONCE MC ; Start 05/26/17 at 17:30; Stop 05/26/17 at 17 :31 Vancomycin HCl 2 gm/Sodium Chloride 500 ml @ 250 mls/hr Q24H IV ; Start at 18:00 Polyethylene Glycol (miraLAX PACKET) 17 gm BID PO ; Start 05/26/17 at 21:00 Pantoprazole Sodium (Protonix) 40 mg DAILYAC PO ; Start 05/26/17 at 11:30 Barium Sulfate (Liquid E-Z Paque) 355 ml 1X ONCE PO Last administered on 11:14; Start 05/26/17 at 10:30; Stop 05/26/17 at 10:31; Status DC Barium Sulfate (E-Z-Hd) 340 gm 1X ONCE PO ; Start 05/26/17 at 10:30; Stop 05/26 at 10:31; Status DC Simethicone/ Sodium Bicarb/ Citric Ac (E-Z-Gas) 1 packet 1X ONCE PO ; Start 10/02 at 10:30; Stop 05/26/17 at 10:31; Status DC Active Scripts Active Lisinopril 2.5 Mg Tablet 2.5 Mg PO DAILY 30 Days Carvedilol 3.125 Mg Tablet 3.125 Mg PO BIDWMEALS 30 Days Reported Aspir 81 (Aspirin) 81 Mg Tablet.dr 1 Tab PO DAILY Duoneb 0.5-3(2.5) Mg/3 Ml (Albuterol/Ipratropium) 3 Ml Ampul.neb 3 Ml NEB QID Allergies Allergies: Coded Allergies: Penicillins (Verified Allergy, Intermediate, severe hives, 04/17/16) ROS General: YES: Other (no weight loss), No: Chills, Night Sweats, Appetite Hematological and Lymphatic: No: Night Sweats, Swollen Lymph Nodes (cannot palpate) Respiratory: No: Cough, Shortness of breath Cardiovascular: No Chest Pain, No Palpitations, No Orthopnea Gastrointestinal: Yes Nausea, Yes Vomiting, Yes Other (dysphagia), No Abdominal Pain, No Diarrhea, No Constipation Neurological: No Visual Changes, No Weakness, No Other Skin: Yes Rash, Yes Skin Lesion Changes Physical Exam Physical Exam Lymph: No obvious palpable supraclavicular, cervical, axillary adenopathy General: Alert, Oriented X3, Cooperative, No acute distress, Other Lungs: Clear to auscultation Heart: Regular rate Abdomen: Other (distended, obese) Extremities: Other (3+ edema b/l LE) Skin: No rashes, Other (erythema lessened) Neuro: Cranial nerves 3-12 NL Psych/Mental Status: Mental status NL, Mood NL Vitals VITALS Vital Signs Date Time Temp Pulse Resp B/P (MAP) Pulse Ox O2 Delivery O2 Flow Rate FiO2 05/26/17 11:00 98.3 89 22 124/90 (101) 90 Nasal Cannula 2.0 98.3 Labs Labs Laboratory Tests Test 05/26/17 03:50 White Blood Count 10.5 x10^3/uL (4.0-11.0) Red Blood Count 4.43 x10^6/uL (3.50-5.40) Hemoglobin 13.4 g/dL (12.0-15.5) Hematocrit 40.4 % (36.0-47.0) Mean Corpuscular Volume 91 fL (79-100) Mean Corpuscular Hemoglobin 30 pg (25-35) Mean Corpuscular Hemoglobin Concent 33 g/dL (31-37) Red Cell Distribution Width 14.9 % (11.5-14.5) Platelet Count 249 x10^3/uL (140-400) Neutrophils (%) (Auto) 60 % (31-73) Lymphocytes (%) (Auto) 23 % (24-48) Monocytes (%) (Auto) 9 % (0-9) Eosinophils (%) (Auto) 7 % (0-3) Basophils (%) (Auto) 1 % (0-3) Neutrophils # (Auto) 6.2 x10^3uL (1.8-7.7) Lymphocytes # (Auto) 2.4 x10^3/uL (1.0-4.8) Monocytes # (Auto) 1.0 x10^3/uL (0.0-1.1) Eosinophils # (Auto) 0.7 x10^3/uL (0.0-0.7) Basophils # (Auto) 0.1 x10^3/uL (0.0-0.2) Sodium Level 139 mmol/L (136-145) Potassium Level 5.7 mmol/L (3.5-5.1) Chloride Level 103 mmol/L (98-107) Carbon Dioxide Level 30 mmol/L (21-32) Anion Gap 6 (6-14) Blood Urea Nitrogen 26 mg/dL (7-20) Creatinine 1.5 mg/dL (0.6-1.0) Estimated GFR (Cockcroft-Gault) 35.7 BUN/Creatinine Ratio 17 (6-20) Glucose Level 115 mg/dL (70-99) Calcium Level 8.3 mg/dL (8.5-10.1) Total Bilirubin 0.7 mg/dL (0.2-1.0) Aspartate Amino Transf (AST/SGOT) 40 U/L (15-37) Alanine Aminotransferase (ALT/SGPT) 27 U/L (14-59) Alkaline Phosphatase 100 U/L (46-116) Total Protein 7.6 g/dL (6.4-8.2) Albumin 2.9 g/dL (3.4-5.0) Albumin/Globulin Ratio 0.6 (1.0-1.7) Laboratory Tests Test 05/26/17 03:50 White Blood Count 10.5 x10^3/uL (4.0-11.0) Red Blood Count 4.43 x10^6/uL (3.50-5.40) Hemoglobin 13.4 g/dL (12.0-15.5) Hematocrit 40.4 % (36.0-47.0) Mean Corpuscular Volume 91 fL (79-100) Mean Corpuscular Hemoglobin 30 pg (25-35) Mean Corpuscular Hemoglobin Concent 33 g/dL (31-37) Red Cell Distribution Width 14.9 % (11.5-14.5) Platelet Count 249 x10^3/uL (140-400) Neutrophils (%) (Auto) 60 % (31-73) Lymphocytes (%) (Auto) 23 % (24-48) Monocytes (%) (Auto) 9 % (0-9) Eosinophils (%) (Auto) 7 % (0-3) Basophils (%) (Auto) 1 % (0-3) Neutrophils # (Auto) 6.2 x10^3uL (1.8-7.7) Lymphocytes # (Auto) 2.4 x10^3/uL (1.0-4.8) Monocytes # (Auto) 1.0 x10^3/uL (0.0-1.1) Eosinophils # (Auto) 0.7 x10^3/uL (0.0-0.7) Basophils # (Auto) 0.1 x10^3/uL (0.0-0.2) Sodium Level 139 mmol/L (136-145) Potassium Level 5.7 mmol/L (3.5-5.1) Chloride Level 103 mmol/L (98-107) Carbon Dioxide Level 30 mmol/L (21-32) Anion Gap 6 (6-14) Blood Urea Nitrogen 26 mg/dL (7-20) Creatinine 1.5 mg/dL (0.6-1.0) Estimated GFR (Cockcroft-Gault) 35.7 BUN/Creatinine Ratio 17 (6-20) Glucose Level 115 mg/dL (70-99) Calcium Level 8.3 mg/dL (8.5-10.1) Total Bilirubin 0.7 mg/dL (0.2-1.0) Aspartate Amino Transf (AST/SGOT) 40 U/L (15-37) Alanine Aminotransferase (ALT/SGPT) 27 U/L (14-59) Alkaline Phosphatase 100 U/L (46-116) Total Protein 7.6 g/dL (6.4-8.2) Albumin 2.9 g/dL (3.4-5.0) Albumin/Globulin Ratio 0.6 (1.0-1.7) Images Images CTA chest, LE u/S reviewed as above Barium swallow- neg GI, pulm, hospitalist notes reviewed Assessment/Plan Assessment/Plan 1. Left axillary (5 cm), mediastinal adenopathy- Possibly Infectious, inflammatory/ rheumatologic, neoplastic in origin. IR consult for biopsy requested. INR added to labs. Pt asymptomatic. 2. Bilateral groundglass opacities in lungs- New. Pulm following. 3. Thyroid density- Thyroid u/s ordered 4. Dysphagia, vomiting. Barium swallow neg. GI following. 5. Cellulitis of pannus, LE. Improved with abx, diuretics. 6. CHD, EF 30%- Does not routinely take any meds due to no insurance. 7. Uninsured. SW following. DORA LONGORIA DO May 26, 2017 14:57
--- NOTE | 2017-05-26 16:20 | RAD ---
Thyroid ultrasound 05/26/2017 Indication: Right thyroid nodule Comparison: None available Technique: Sonographic evaluation of the thyroid gland was performed. Findings: The right thyroid lobe measures 6.2 x 3.8 x 4.1 cm. The right thyroid lobe is heterogeneous in echotexture with a complex nodule measuring 4.8 x 3.7 x 3.8 cm. There is no significant hyperemia. The left thyroid lobe measures 4.2 x 1.4 x 1.3 cm and is homogenous in echotexture. No nodules are identified. The thyroid isthmus appears normal. Impression: Complex solid and cystic nodule measuring 4.8 x 3.7 x 3.8 cm in the mid to inferior right thyroid gland. This is amenable to an guided FNA.
[2017-05-26 17:41] LABS: INR 1.2 (0.8-1.1); PROTHROMBIN TIME PATIENT 14.4 SEC (11.7-14.0)
[2017-05-26] MEDS ORDERED: ALBUTEROL SULFATE 2.5 MG/3 ML NEBU. NEB PRN (17:45)
[2017-05-26] MEDS ORDERED: VANCOMYCIN 2 GM in IV NORMAL SALINE 500ML BAG 500 ML IV SCH (18:00)
[2017-05-26] MEDS: IPRATRPIUM/ALBUTEROL 0.5/2.5MG 3 ML NEBU. NEB SCH (18:08)
[2017-05-26] MEDS: POLYETHYLENE GLYCOL 3350 17 GM PACKET. PO SCH (20:54)
[2017-05-26] MEDS: AZITHROMYCIN 500 MG in IV NORMAL SALINE 250ML 250 ML IV SCH (20:54)
[2017-05-26] MEDS: traMADol 50 MG TABLET PO PRN (20:56)
[2017-05-27 03:31] VITALS: BP 125/81
[2017-05-27 06:06] LABS: BASO # 0.1 x10^3/uL (0.0-0.2); BASO % 1 % (0-3); EOS % 4 % (0-3); HEMATOCRIT 39.8 % (36.0-47.0); LYMPH # 1.8 x10^3/uL (1.0-4.8); LYMPH % 18 % (24-48); MEAN CORPUSCULAR HEMOGLOBIN 29 pg (25-35); MEAN CORPUSCULAR HGB CONC 33 g/dL (31-37); MEAN CORPUSCULAR VOLUME 90 fL (79-100); MONO % 9 % (0-9); NEUT % 69 % (31-73); PLATELET COUNT 237 x10^3/uL (140-400); RED CELL DISTRIBUTION WIDTH 14.9 % (11.5-14.5); WHITE BLOOD COUNT 10.3 x10^3/uL (4.0-11.0)
[2017-05-27 06:27] LABS: CALCIUM 8.7 mg/dL (8.5-10.1); CREATININE 1.4 mg/dL (0.6-1.0); GFR 38.6
[2017-05-27 06:29] LABS: POTASSIUM 5.5 mmol/L (3.5-5.1)
[2017-05-27 07:00] VITALS: BP 140/73
[2017-05-27] MEDS: PANTOPRAZOLE 40 MG TABLET.DR. PO SCH ×2 (07:30→17:20)
[2017-05-27] MEDS: IPRATRPIUM/ALBUTEROL 0.5/2.5MG 3 ML NEBU. NEB SCH ×4 (07:37→19:45)
[2017-05-27] MEDS: ASPIRIN 325 MG TABLET PO SCH (08:00)
[2017-05-27] MEDS: CARVEDILOL 3.125 MG TABLET. PO SCH ×2 (08:00→17:20)
--- NOTE | 2017-05-27 08:50 | PDOC ---
Subjective: Subjective: Onc f/u- Lymphadenopathy Vomiting and diarrhea resolved since yesterday PM LE swelling better Objective: Vital Signs: Vital Signs Date Time Temp Pulse Resp B/P (MAP) Pulse Ox O2 Delivery O2 Flow Rate FiO2 05/27/17 07:37 Room Air 05/27/17 07:00 97.5 82 20 140/73 (95) 90 97.5 05/27/17 03:31 2.0 Physical Exam: Heart: Regular rate Extremities: Other (3+ edema bilateral LE) General: Alert, Oriented X3, Cooperative Lungs: Other (no respiratory distress) Psych/Mental Status: Mental status NL, Mood NL Skin: Other (no erythema b/l LE) Labs/Imaging: Thyroid U/S- 5.4 cm right thyroid nodule Assessment/Plan A/P: 1. 5 cm Left axillary and mediastinal adenopathy- Possibly Infectious, inflammatory/ rheumatologic, neoplastic in origin. Bx today. Pt asymptomatic. 2. Bilateral groundglass opacities in lungs. Pulm following. 3. 5 cm right Thyroid nodule- Requested FNA today, hopefully can be done at same time as axillary LN bx. 4. Dysphagia, vomiting. Barium swallow neg. GI following. 5. Cellulitis of pannus, LE. Improved with abx, diuretics. 6. CHF, EF 30%- Does not routinely take any meds due to no insurance. 7. Uninsured. SW following. If pt is DC'ed before path returns, I will plan to call her with results. Currently uninsured, making f/u difficult. She has my contact info as well. DORA LONGORIA DO May 27, 2017 08:50
[2017-05-27] MEDS: NYSTATIN TOPICAL POWDER 15GM BOTTLE. TP SCH ×2 (09:00→20:21)
[2017-05-27] MEDS: POLYETHYLENE GLYCOL 3350 17 GM PACKET. PO SCH ×2 (09:00→20:19)
[2017-05-27] MEDS: PRAMIPEXOLE 0.25 MG TABLET. PO SCH ×3 (09:00→20:19)
[2017-05-27] MEDS: FLUOCINONIDE 0.05% TOPICAL CREAM 15 GM TUBE. TP SCH ×2 (09:00→20:21)
[2017-05-27] MEDS: FLUCONAZOLE 100 MG TABLET. PO SCH ×2 (09:00→20:20)
[2017-05-27] MEDS: FUROSEMIDE 40 MG TABLET. PO SCH (09:00)
[2017-05-27 11:00] VITALS: BP 122/69
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
[2017-05-27] MEDS ORDERED: LIDOCAINE 1% / SOD BICARB 8.4% 20 ML VIAL. IJ ONE ×2 (12:51→13:30)
--- NOTE | 2017-05-27 12:54 | PDOC ---
PULMONARY PROGRESS NOTES Subjective feels better Vitals Vital Signs Date Time Temp Pulse Resp B/P (MAP) Pulse Ox O2 Delivery O2 Flow Rate FiO2 05/27/17 11:23 93 Room Air 05/27/17 11:00 98.1 81 20 122/69 (86) 98.1 05/27/17 03:31 2.0 General: Alert, No acute distress Lungs: Clear Cardiovascular: S1 Abdomen: Soft, Other (obese) Neuro Exam: Alert Extremities: Other (1+edema) Labs Laboratory Tests Test 05/26/17 03:50 05/26/17 15:25 05/27/17 05:15 White Blood Count 10.5 x10^3/uL (4.0-11.0) 10.3 x10^3/uL (4.0-11.0) Red Blood Count 4.43 x10^6/uL (3.50-5.40) 4.40 x10^6/uL (3.50-5.40) Hemoglobin 13.4 g/dL (12.0-15.5) 13.0 g/dL (12.0-15.5) Hematocrit 40.4 % (36.0-47.0) 39.8 % (36.0-47.0) Mean Corpuscular Volume 91 fL (79-100) 90 fL (79-100) Mean Corpuscular Hemoglobin 30 pg (25-35) 29 pg (25-35) Mean Corpuscular Hemoglobin Concent 33 g/dL (31-37) 33 g/dL (31-37) Red Cell Distribution Width 14.9 % (11.5-14.5) 14.9 % (11.5-14.5) Platelet Count 249 x10^3/uL (140-400) 237 x10^3/uL (140-400) Neutrophils (%) (Auto) 60 % (31-73) 69 % (31-73) Lymphocytes (%) (Auto) 23 % (24-48) 18 % (24-48) Monocytes (%) (Auto) 9 % (0-9) 9 % (0-9) Eosinophils (%) (Auto) 7 % (0-3) 4 % (0-3) Basophils (%) (Auto) 1 % (0-3) 1 % (0-3) Neutrophils # (Auto) 6.2 x10^3uL (1.8-7.7) 7.1 x10^3uL (1.8-7.7) Lymphocytes # (Auto) 2.4 x10^3/uL (1.0-4.8) 1.8 x10^3/uL (1.0-4.8) Monocytes # (Auto) 1.0 x10^3/uL (0.0-1.1) 0.9 x10^3/uL (0.0-1.1) Eosinophils # (Auto) 0.7 x10^3/uL (0.0-0.7) 0.4 x10^3/uL (0.0-0.7) Basophils # (Auto) 0.1 x10^3/uL (0.0-0.2) 0.1 x10^3/uL (0.0-0.2) Sodium Level 139 mmol/L (136-145) 138 mmol/L (136-145) Potassium Level 5.7 mmol/L (3.5-5.1) 5.5 mmol/L (3.5-5.1) Chloride Level 103 mmol/L (98-107) 101 mmol/L (98-107) Carbon Dioxide Level 30 mmol/L (21-32) 30 mmol/L (21-32) Anion Gap 6 (6-14) 7 (6-14) Blood Urea Nitrogen 26 mg/dL (7-20) 22 mg/dL (7-20) Creatinine 1.5 mg/dL (0.6-1.0) 1.4 mg/dL (0.6-1.0) Estimated GFR (Cockcroft-Gault) 35.7 38.6 BUN/Creatinine Ratio 17 (6-20) Glucose Level 115 mg/dL (70-99) 106 mg/dL (70-99) Calcium Level 8.3 mg/dL (8.5-10.1) 8.7 mg/dL (8.5-10.1) Total Bilirubin 0.7 mg/dL (0.2-1.0) Aspartate Amino Transf (AST/SGOT) 40 U/L (15-37) Alanine Aminotransferase (ALT/SGPT) 27 U/L (14-59) Alkaline Phosphatase 100 U/L (46-116) Total Protein 7.6 g/dL (6.4-8.2) Albumin 2.9 g/dL (3.4-5.0) Albumin/Globulin Ratio 0.6 (1.0-1.7) Prothrombin Time 14.4 SEC (11.7-14.0) Prothromb Time International Ratio 1.2 (0.8-1.1) Vancomycin Level Trough 18.5 mcg/mL (10.0-20.0) Vancomycin Last Dose Date Vancomycin Last Dose Time Laboratory Tests Test 05/26/17 15:25 05/27/17 05:15 Prothrombin Time 14.4 SEC (11.7-14.0) Prothromb Time International Ratio 1.2 (0.8-1.1) Vancomycin Level Trough 18.5 mcg/mL (10.0-20.0) Vancomycin Last Dose Date Vancomycin Last Dose Time White Blood Count 10.3 x10^3/uL (4.0-11.0) Red Blood Count 4.40 x10^6/uL (3.50-5.40) Hemoglobin 13.0 g/dL (12.0-15.5) Hematocrit 39.8 % (36.0-47.0) Mean Corpuscular Volume 90 fL (79-100) Mean Corpuscular Hemoglobin 29 pg (25-35) Mean Corpuscular Hemoglobin Concent 33 g/dL (31-37) Red Cell Distribution Width 14.9 % (11.5-14.5) Platelet Count 237 x10^3/uL (140-400) Neutrophils (%) (Auto) 69 % (31-73) Lymphocytes (%) (Auto) 18 % (24-48) Monocytes (%) (Auto) 9 % (0-9) Eosinophils (%) (Auto) 4 % (0-3) Basophils (%) (Auto) 1 % (0-3) Neutrophils # (Auto) 7.1 x10^3uL (1.8-7.7) Lymphocytes # (Auto) 1.8 x10^3/uL (1.0-4.8) Monocytes # (Auto) 0.9 x10^3/uL (0.0-1.1) Eosinophils # (Auto) 0.4 x10^3/uL (0.0-0.7) Basophils # (Auto) 0.1 x10^3/uL (0.0-0.2) Sodium Level 138 mmol/L (136-145) Potassium Level 5.5 mmol/L (3.5-5.1) Chloride Level 101 mmol/L (98-107) Carbon Dioxide Level 30 mmol/L (21-32) Anion Gap 7 (6-14) Blood Urea Nitrogen 22 mg/dL (7-20) Creatinine 1.4 mg/dL (0.6-1.0) Estimated GFR (Cockcroft-Gault) 38.6 Glucose Level 106 mg/dL (70-99) Calcium Level 8.7 mg/dL (8.5-10.1) Medications Active Scripts Medications Dose Route/Sig Max Daily Dose Days Date Category Aspir 81 (Aspirin) 81 Mg Tablet.dr 1 Tab PO DAILY 05/26/17 Reported Duoneb 0.5-3(2.5) Mg/3 Ml (Albuterol/Ipratropium) 3 Ml Ampul.neb 3 Ml NEB QID 04/19/16 Reported Lisinopril 2.5 Mg Tablet 2.5 Mg PO DAILY 30 04/19/16 Rx Carvedilol 3.125 Mg Tablet 3.125 Mg PO BIDWMEALS 30 04/19/16 Rx Impression . 1. Abnormal ct chest with bilateral lung opacities of unclear etiology, infectious vs sarcoid vs malignancy (lymphoma). These findings were also seen in 2016 ct chest but axillary adenopathy have increased/ ? lymphoma vs sarcoid. An infectious component cannot be ruled out due to recent vomiting with suspected aspiration 2. Panniculitis 3. 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 Morbid obesity Plan . 1. Antibiotic 2. axillary LN biopsy today 3. Oncology consulted/ appreciate input 4. repeat CXR in few days SANDEEP SERRANO MD May 27, 2017 12:54
--- NOTE | 2017-05-27 13:42 | RAD ---
Ultrasound-guided biopsy of left axillary adenopathy 05/27/2017 Indication: Left axillary adenopathy, concerning for metastatic disease. Discussion: The risks and benefits of the procedure including not limited to bleeding, infection, pain, and neurovascular injury versus the patient. Informed consent was obtained. The left axillary region was prepped using maximum sterile barrier technique. Ultrasound evaluation and treatment multiple enlarged lymph nodes in left axilla, amenable to percutaneous biopsy. Once an appropriate skin entry site of an selective 1% lidocaine without epinephrine was administered for local anesthesia. Under direct ultrasound guidance 4 18-gauge core biopsy samples were obtained. These were divided amongst formalin and RPMI fluid. Manual pressure was held to achieve hemostasis. No immediate complications were identified. Impression: Successful ultrasound-guided biopsy of left axillary adenopathy
--- NOTE | 2017-05-27 14:22 | PDOC ---
PROGRESS NOTES Chief Complaint Chief Complaint . 1. Cellultis, on abx, consult ID. 2. Dysphagia and nausea, which have been waxing and waning over the past year. 3. Constipation w/ abd pain and distention 4. lymphedema LE 5. acute onchronic systolic CHF with and EF of 30% 6. morbid obesity, BMI 57 7. Hyperkalemia 8. Acute vasomotor on CKD 3 History of Present Illness History of Present Illness Le edema, better has stooled X3, her abd feels better weakness, not able to ambulate well I discussed plan for possible DC plan in AM, f/u free clinic, may benefit from taking her scheduled Lasix, may restart Lisinopril if potassium level better will give small amt Ns and 40 IV lasix, try to drop potassium Vitals Vitals Vital Signs Date Time Temp Pulse Resp B/P (MAP) Pulse Ox O2 Delivery O2 Flow Rate FiO2 05/27/17 11:23 93 Room Air 05/27/17 11:00 98.1 81 20 122/69 (86) 98.1 05/27/17 03:31 2.0 Physical Exam General: Alert, Oriented X3, Cooperative Heart: Regular rate Lungs: Clear Abdomen: Other (distended, obese) Extremities: No clubbing, Other (3+ edema bilateral LE) Skin: Other (no erythema b/l LE) Labs LABS Laboratory Tests Test 05/26/17 15:25 05/27/17 05:15 Prothrombin Time 14.4 SEC (11.7-14.0) Prothromb Time International Ratio 1.2 (0.8-1.1) Vancomycin Level Trough 18.5 mcg/mL (10.0-20.0) Vancomycin Last Dose Date Vancomycin Last Dose Time White Blood Count 10.3 x10^3/uL (4.0-11.0) Red Blood Count 4.40 x10^6/uL (3.50-5.40) Hemoglobin 13.0 g/dL (12.0-15.5) Hematocrit 39.8 % (36.0-47.0) Mean Corpuscular Volume 90 fL (79-100) Mean Corpuscular Hemoglobin 29 pg (25-35) Mean Corpuscular Hemoglobin Concent 33 g/dL (31-37) Red Cell Distribution Width 14.9 % (11.5-14.5) Platelet Count 237 x10^3/uL (140-400) Neutrophils (%) (Auto) 69 % (31-73) Lymphocytes (%) (Auto) 18 % (24-48) Monocytes (%) (Auto) 9 % (0-9) Eosinophils (%) (Auto) 4 % (0-3) Basophils (%) (Auto) 1 % (0-3) Neutrophils # (Auto) 7.1 x10^3uL (1.8-7.7) Lymphocytes # (Auto) 1.8 x10^3/uL (1.0-4.8) Monocytes # (Auto) 0.9 x10^3/uL (0.0-1.1) Eosinophils # (Auto) 0.4 x10^3/uL (0.0-0.7) Basophils # (Auto) 0.1 x10^3/uL (0.0-0.2) Sodium Level 138 mmol/L (136-145) Potassium Level 5.5 mmol/L (3.5-5.1) Chloride Level 101 mmol/L (98-107) Carbon Dioxide Level 30 mmol/L (21-32) Anion Gap 7 (6-14) Blood Urea Nitrogen 22 mg/dL (7-20) Creatinine 1.4 mg/dL (0.6-1.0) Estimated GFR (Cockcroft-Gault) 38.6 Glucose Level 106 mg/dL (70-99) Calcium Level 8.7 mg/dL (8.5-10.1) Review of Systems Review of Systems no n.vd. Comment Review of Relevant I have reviewed the following items feli (where applicable) has been applied. Labs Laboratory Tests Test 05/26/17 03:50 05/26/17 15:25 05/27/17 05:15 White Blood Count 10.5 x10^3/uL (4.0-11.0) 10.3 x10^3/uL (4.0-11.0) Red Blood Count 4.43 x10^6/uL (3.50-5.40) 4.40 x10^6/uL (3.50-5.40) Hemoglobin 13.4 g/dL (12.0-15.5) 13.0 g/dL (12.0-15.5) Hematocrit 40.4 % (36.0-47.0) 39.8 % (36.0-47.0) Mean Corpuscular Volume 91 fL (79-100) 90 fL (79-100) Mean Corpuscular Hemoglobin 30 pg (25-35) 29 pg (25-35) Mean Corpuscular Hemoglobin Concent 33 g/dL (31-37) 33 g/dL (31-37) Red Cell Distribution Width 14.9 % (11.5-14.5) 14.9 % (11.5-14.5) Platelet Count 249 x10^3/uL (140-400) 237 x10^3/uL (140-400) Neutrophils (%) (Auto) 60 % (31-73) 69 % (31-73) Lymphocytes (%) (Auto) 23 % (24-48) 18 % (24-48) Monocytes (%) (Auto) 9 % (0-9) 9 % (0-9) Eosinophils (%) (Auto) 7 % (0-3) 4 % (0-3) Basophils (%) (Auto) 1 % (0-3) 1 % (0-3) Neutrophils # (Auto) 6.2 x10^3uL (1.8-7.7) 7.1 x10^3uL (1.8-7.7) Lymphocytes # (Auto) 2.4 x10^3/uL (1.0-4.8) 1.8 x10^3/uL (1.0-4.8) Monocytes # (Auto) 1.0 x10^3/uL (0.0-1.1) 0.9 x10^3/uL (0.0-1.1) Eosinophils # (Auto) 0.7 x10^3/uL (0.0-0.7) 0.4 x10^3/uL (0.0-0.7) Basophils # (Auto) 0.1 x10^3/uL (0.0-0.2) 0.1 x10^3/uL (0.0-0.2) Sodium Level 139 mmol/L (136-145) 138 mmol/L (136-145) Potassium Level 5.7 mmol/L (3.5-5.1) 5.5 mmol/L (3.5-5.1) Chloride Level 103 mmol/L (98-107) 101 mmol/L (98-107) Carbon Dioxide Level 30 mmol/L (21-32) 30 mmol/L (21-32) Anion Gap 6 (6-14) 7 (6-14) Blood Urea Nitrogen 26 mg/dL (7-20) 22 mg/dL (7-20) Creatinine 1.5 mg/dL (0.6-1.0) 1.4 mg/dL (0.6-1.0) Estimated GFR (Cockcroft-Gault) 35.7 38.6 BUN/Creatinine Ratio 17 (6-20) Glucose Level 115 mg/dL (70-99) 106 mg/dL (70-99) Calcium Level 8.3 mg/dL (8.5-10.1) 8.7 mg/dL (8.5-10.1) Total Bilirubin 0.7 mg/dL (0.2-1.0) Aspartate Amino Transf (AST/SGOT) 40 U/L (15-37) Alanine Aminotransferase (ALT/SGPT) 27 U/L (14-59) Alkaline Phosphatase 100 U/L (46-116) Total Protein 7.6 g/dL (6.4-8.2) Albumin 2.9 g/dL (3.4-5.0) Albumin/Globulin Ratio 0.6 (1.0-1.7) Prothrombin Time 14.4 SEC (11.7-14.0) Prothromb Time International Ratio 1.2 (0.8-1.1) Vancomycin Level Trough 18.5 mcg/mL (10.0-20.0) Vancomycin Last Dose Date Vancomycin Last Dose Time Laboratory Tests Test 05/26/17 15:25 05/27/17 05:15 Prothrombin Time 14.4 SEC (11.7-14.0) Prothromb Time International Ratio 1.2 (0.8-1.1) Vancomycin Level Trough 18.5 mcg/mL (10.0-20.0) Vancomycin Last Dose Date Vancomycin Last Dose Time White Blood Count 10.3 x10^3/uL (4.0-11.0) Red Blood Count 4.40 x10^6/uL (3.50-5.40) Hemoglobin 13.0 g/dL (12.0-15.5) Hematocrit 39.8 % (36.0-47.0) Mean Corpuscular Volume 90 fL (79-100) Mean Corpuscular Hemoglobin 29 pg (25-35) Mean Corpuscular Hemoglobin Concent 33 g/dL (31-37) Red Cell Distribution Width 14.9 % (11.5-14.5) Platelet Count 237 x10^3/uL (140-400) Neutrophils (%) (Auto) 69 % (31-73) Lymphocytes (%) (Auto) 18 % (24-48) Monocytes (%) (Auto) 9 % (0-9) Eosinophils (%) (Auto) 4 % (0-3) Basophils (%) (Auto) 1 % (0-3) Neutrophils # (Auto) 7.1 x10^3uL (1.8-7.7) Lymphocytes # (Auto) 1.8 x10^3/uL (1.0-4.8) Monocytes # (Auto) 0.9 x10^3/uL (0.0-1.1) Eosinophils # (Auto) 0.4 x10^3/uL (0.0-0.7) Basophils # (Auto) 0.1 x10^3/uL (0.0-0.2) Sodium Level 138 mmol/L (136-145) Potassium Level 5.5 mmol/L (3.5-5.1) Chloride Level 101 mmol/L (98-107) Carbon Dioxide Level 30 mmol/L (21-32) Anion Gap 7 (6-14) Blood Urea Nitrogen 22 mg/dL (7-20) Creatinine 1.4 mg/dL (0.6-1.0) Estimated GFR (Cockcroft-Gault) 38.6 Glucose Level 106 mg/dL (70-99) Calcium Level 8.7 mg/dL (8.5-10.1) Medications Current Medications Fluconazole (Diflucan) 100 mg DAILY PO Last administered on 05/26/17 09:19; Start 05/26/17 at 09:00 Vancomycin HCl (Vanco Per Pharmacy) 1 each PRN DAILY PRN MC SEE COMMENTS Last administered on 05/26/17 05:48; Start 05/25/17 at 23:00; Stop 05/26/17 at 18:19 ; Status DC Acetaminophen (Tylenol) 650 mg PRN Q6HRS PRN PO MILD PAIN; Start 05/25/17 at 23 :00 Aspirin (Anirudh Aspirin) 325 mg DAILYWBKFT PO Last administered on 05/26/17 09: 18; Start 05/26/17 at 08:00 Carvedilol (Coreg) 3.125 mg BIDWMEALS PO Last administered on 05/26/17 16:40; Start 05/26/17 at 08:00 Hydralazine HCl (Apresoline) 10 mg PRN Q6HRS PRN IVP ELEVATED BP, SEE COMMENTS ; Start 05/25/17 at 23:00 Lisinopril (Prinivil) 2.5 mg DAILY PO Last administered on 05/26/17 09:20; Start 05/26/17 at 09:00; Stop 05/26/17 at 16:36; Status DC Potassium Chloride (Klor-Con) 20 meq DAILYWBKFT PO ; Start 05/26/17 at 08:00; Stop 05/26/17 at 14:36; Status DC Albuterol/ Ipratropium (Duoneb) 3 ml RTQID NEB Last administered on 05/27/17 11:23; Start 05/26/17 at 08:00 Ondansetron HCl (Zofran Odt) 4 mg PRN Q8HRS PRN PO NAUSEA/VOMITING Last administered on 05/26/17 21:46; Start 05/25/17 at 23:00 Ceftriaxone Sodium 1 gm/ Sodium Chloride 50 ml @ 100 mls/hr QHS IV Last administered on 05/26/17 20:54; Start 05/25/17 at 23:30 Azithromycin 500 mg/Sodium Chloride 250 ml @ 250 mls/hr QHS IV Last administered on 05/26/17 20:54; Start 05/25/17 at 23:30 Nystatin (Nystop) 1 ria BID TP Last administered on 05/26/17 20:56; Start 10/02 at 09:00 Diphenhydramine HCl (Benadryl) 25 mg PRN Q6HRS PRN PO ITCHING; Start 05/25/17 at 23:00 Enoxaparin Sodium (Lovenox 60mg Syringe) 60 mg Q12HR SQ ; Start 05/26/17 at 09: 00; Stop 05/26/17 at 13:14; Status DC Polyethylene Glycol (miraLAX PACKET) 17 gm DAILY PO Last administered on 09:19; Start 05/26/17 at 09:00; Stop 05/26/17 at 09:35; Status DC Pramipexole Dihydrochloride (miraPEX) 0.25 mg [id number] PO Last administered on 20:55; Start 05/26/17 at 09:00 Bisacodyl (Dulcolax Supp) 10 mg PRN DAILY PRN MA CONSTIPATION; Start 05/25/17 at 23:00 Furosemide (Lasix) 40 mg DAILY PO ; Start 05/26/17 at 09:00; Status UNV Fluocinonide (Lidex) 1 ria BID TP Last administered on 05/26/17 20:56; Start 05/26/17 at 09:00 Vancomycin HCl 1 gm/Sodium Chloride 250 ml @ 250 mls/hr Q24H IV ; Start at 23:00; Status UNV Furosemide (Lasix) 40 mg DAILY PO Last administered on 05/26/17 09:19; Start 05/26/17 at 09:00 Metoclopramide HCl (Reglan) 10 mg PRN Q6HRS PRN IV NAUSEA/VOMITING Last administered on 05/26/17 03:15; Start 05/25/17 at 23:00 Sodium Chloride (Normal Saline Flush) 3 ml PRN DAILY PRN IV AFTER MEDS AND BLOOD DRAWS; Start 05/25/17 at 23:00 Potassium Chloride/Sodium Chloride 1,000 ml @ 75 mls/hr [id number] IV Last administered on 05/25/17 23:37; Start 05/25/17 at 23:00; Stop 05/26/17 at 16:36 ; Status DC Vancomycin HCl 1 each 1X ONCE MC Last administered on 05/26/17 18:13; Start 05/26/17 at 17:30; Stop 05/26/17 at 17:31; Status DC Vancomycin HCl 2 gm/Sodium Chloride 500 ml @ 250 mls/hr Q24H IV ; Start at 18:00; Stop 05/26/17 at 18:23; Status DC Polyethylene Glycol (miraLAX PACKET) 17 gm BID PO ; Start 05/26/17 at 21:00 Pantoprazole Sodium (Protonix) 40 mg DAILYAC PO ; Start 05/26/17 at 11:30 Barium Sulfate (Liquid E-Z Paque) 355 ml 1X ONCE PO Last administered on 11:14; Start 05/26/17 at 10:30; Stop 05/26/17 at 10:31; Status DC Barium Sulfate (E-Z-Hd) 340 gm 1X ONCE PO ; Start 05/26/17 at 10:30; Stop 05/26 at 10:31; Status DC Simethicone/ Sodium Bicarb/ Citric Ac (E-Z-Gas) 1 packet 1X ONCE PO ; Start 10/02 at 10:30; Stop 05/26/17 at 10:31; Status DC Albuterol Sulfate (Ventolin Neb Soln) 2.5 mg PRN Q4HRS PRN NEB SHORTNESS OF BREATH; Start 05/26/17 at 17:45 Tramadol HCl (Ultram) 50 mg PRN Q6HRS PRN PO PAIN Last administered on 20:56; Start 05/26/17 at 20:45 Lidocaine/Sodium Bicarbonate (Buffered Lidocaine 1%) 20 ml STK-MED ONCE IJ ; Start 05/27/17 at 12:51; Stop 05/27/17 at 12:52; Status DC Lidocaine/Sodium Bicarbonate (Buffered Lidocaine 1%) 10 ml 1X ONCE IJ Last administered on 05/27/17 13:20; Start 05/27/17 at 13:30; Stop 05/27/17 at 13:31 ; Status DC Furosemide (Lasix) 40 mg 1X ONCE IVP ; Start 05/27/17 at 14:30; Stop 05/27/17 at 14:31; Status UNV Sodium Chloride 500 ml @ 500 mls/hr 1X ONCE IV ; Start 05/27/17 at 14:30; Stop 05/27/17 at 15:29; Status UNV Active Scripts Active Lisinopril 2.5 Mg Tablet 2.5 Mg PO DAILY 30 Days Carvedilol 3.125 Mg Tablet 3.125 Mg PO BIDWMEALS 30 Days Reported Aspir 81 (Aspirin) 81 Mg Tablet.dr 1 Tab PO DAILY Duoneb 0.5-3(2.5) Mg/3 Ml (Albuterol/Ipratropium) 3 Ml Ampul.neb 3 Ml NEB QID Vitals/I & O Vital Sign - Last 24 Hours 05/26/17 05/26/17 05/26/17 05/26/17 15:00 16:40 18:11 19:00 Temp 97.7 97.7 97.7 97.7 Pulse 86 86 89 Resp 22 18 B/P (MAP) 120/53 (75) 120/53 123/75 (91) Pulse Ox 95 96 91 O2 Delivery Nasal Cannula Nasal Cannula Nasal Cannula O2 Flow Rate 2.0 2.0 2.0 05/26/17 05/26/17 05/26/17 05/26/17 20:00 20:56 21:45 21:55 Temp 96.3 96.3 Pulse 73 90 Resp 16 16 18 B/P (MAP) 96/62 (73) 112/79 (90) Pulse Ox 96 98 100 O2 Delivery Nasal Cannula Room Air Nasal Cannula Nasal Cannula O2 Flow Rate 2.0 2.0 2.0 05/26/17 05/26/17 05/27/17 05/27/17 21:56 23:33 03:31 07:00 Temp 97.4 97.5 97.5 97.4 97.5 97.5 Pulse 80 83 82 Resp 16 16 18 20 B/P (MAP) 97/58 (71) 125/81 (96) 140/73 (95) Pulse Ox 93 93 90 90 O2 Delivery Nasal Cannula Nasal Cannula Nasal Cannula Room Air O2 Flow Rate 2.0 2.0 2.0 05/27/17 05/27/17 05/27/17 07:37 11:00 11:23 Temp 98.1 98.1 Pulse 81 Resp 20 B/P (MAP) 122/69 (86) Pulse Ox 93 93 O2 Delivery Room Air Room Air Room Air Intake and Output 05/26/17 05/26/17 05/27/17 14:59 22:59 06:59 Intake Total 120 ml 120 ml Balance 120 ml 120 ml BEATRIS FOSTER MD May 27, 2017 14:21
[2017-05-27] MEDS ORDERED: IV NORMAL SALINE 500ML BAG 500 ML IV ONE (14:30)
[2017-05-27] MEDS ORDERED: FUROSEMIDE 40 MG/4 ML VIAL. IVP ONE (14:30)
[2017-05-27 15:00] VITALS: BP 141/82
[2017-05-27] MEDS: AZITHROMYCIN 250 MG TABLET. PO SCH (15:03)
[2017-05-27 19:00] VITALS: BP 122/50
[2017-05-27] MEDS: traMADol 50 MG TABLET PO PRN (20:20)
[2017-05-27 23:00] VITALS: BP 118/74
[2017-05-28] MEDS: traMADol 50 MG TABLET PO PRN (02:52)
[2017-05-28 03:00] VITALS: BP 109/67
[2017-05-28 04:39] LABS: BASO # 0.1 x10^3/uL (0.0-0.2); BASO % 1 % (0-3); EOS % 10 % (0-3); HEMATOCRIT 37.6 % (36.0-47.0); LYMPH # 1.5 x10^3/uL (1.0-4.8); LYMPH % 17 % (24-48); MEAN CORPUSCULAR HEMOGLOBIN 29 pg (25-35); MEAN CORPUSCULAR HGB CONC 32 g/dL (31-37); MEAN CORPUSCULAR VOLUME 92 fL (79-100); MONO % 11 % (0-9); NEUT % 61 % (31-73); PLATELET COUNT 200 x10^3/uL (140-400); RED CELL DISTRIBUTION WIDTH 14.7 % (11.5-14.5); WHITE BLOOD COUNT 8.5 x10^3/uL (4.0-11.0)
[2017-05-28 05:23] LABS: ALBUMIN 2.6 g/dL (3.4-5.0); ALBUMIN/GLOBULIN RATIO 0.7 (1.0-1.7); CALCIUM 7.7 mg/dL (8.5-10.1); CREATININE 1.3 mg/dL (0.6-1.0); GFR 42.1; TOTAL BILIRUBIN 0.4 mg/dL (0.2-1.0); TOTAL PROTEIN 6.6 g/dL (6.4-8.2)
[2017-05-28] MEDS: PANTOPRAZOLE 40 MG TABLET.DR. PO SCH (05:32)
[2017-05-28 07:00] VITALS: BP 127/74
[2017-05-28] MEDS: IPRATRPIUM/ALBUTEROL 0.5/2.5MG 3 ML NEBU. NEB SCH ×3 (07:17→15:23)
[2017-05-28] MEDS: FUROSEMIDE 40 MG TABLET. PO SCH (08:37)
[2017-05-28] MEDS: ASPIRIN 325 MG TABLET PO SCH (08:37)
[2017-05-28] MEDS: NYSTATIN TOPICAL POWDER 15GM BOTTLE. TP SCH (08:37)
[2017-05-28] MEDS: FLUOCINONIDE 0.05% TOPICAL CREAM 15 GM TUBE. TP SCH (08:37)
[2017-05-28] MEDS: AZITHROMYCIN 250 MG TABLET. PO SCH (08:37)
[2017-05-28] MEDS: PRAMIPEXOLE 0.25 MG TABLET. PO SCH ×2 (08:37→15:15)
[2017-05-28] MEDS: CARVEDILOL 3.125 MG TABLET. PO SCH ×2 (08:38→17:00)
[2017-05-28] MEDS: POLYETHYLENE GLYCOL 3350 17 GM PACKET. PO SCH (08:38)
--- NOTE | 2017-05-28 09:34 | PDOC ---
PROGRESS NOTES Chief Complaint Chief Complaint 1. Cellultis, on abx 2. Dysphagia and nausea, which have been waxing and waning over the past year. 3. Constipation w/ abd pain and distention 4. lymphedema LE 5. acute onchronic systolic CHF with and EF of 30% 6. morbid obesity, BMI 57 7. Hyperkalemia 8. Acute vasomotor on CKD 3 History of Present Illness History of Present Illness pt lying comfortably in bed, she denies any complaints and says she is doing much better, awaiting biopsy results, pt states she has difficulty going home as she does not drive, uses a walker, and has no source of transportation Vitals Vitals Vital Signs Date Time Temp Pulse Resp B/P (MAP) Pulse Ox O2 Delivery O2 Flow Rate FiO2 05/28/17 08:38 85 127/74 05/28/17 07:20 94 Room Air 05/28/17 07:00 98.6 20 98.6 05/27/17 19:00 2.0 Physical Exam General: Alert, Oriented X3, Cooperative Heart: Regular rate, No murmurs Lungs: Clear Abdomen: Normal bowel sounds, Soft, Other (distended, obese) Extremities: No clubbing, No cyanosis, Other (3+ edema bilateral LE) Skin: No rashes, No breakdown, Other (no erythema b/l LE) Labs LABS Laboratory Tests Test 05/28/17 04:20 White Blood Count 8.5 x10^3/uL (4.0-11.0) Red Blood Count 4.10 x10^6/uL (3.50-5.40) Hemoglobin 12.0 g/dL (12.0-15.5) Hematocrit 37.6 % (36.0-47.0) Mean Corpuscular Volume 92 fL (79-100) Mean Corpuscular Hemoglobin 29 pg (25-35) Mean Corpuscular Hemoglobin Concent 32 g/dL (31-37) Red Cell Distribution Width 14.7 % (11.5-14.5) Platelet Count 200 x10^3/uL (140-400) Neutrophils (%) (Auto) 61 % (31-73) Lymphocytes (%) (Auto) 17 % (24-48) Monocytes (%) (Auto) 11 % (0-9) Eosinophils (%) (Auto) 10 % (0-3) Basophils (%) (Auto) 1 % (0-3) Neutrophils # (Auto) 5.2 x10^3uL (1.8-7.7) Lymphocytes # (Auto) 1.5 x10^3/uL (1.0-4.8) Monocytes # (Auto) 0.9 x10^3/uL (0.0-1.1) Eosinophils # (Auto) 0.8 x10^3/uL (0.0-0.7) Basophils # (Auto) 0.1 x10^3/uL (0.0-0.2) Sodium Level 137 mmol/L (136-145) Potassium Level 5.0 mmol/L (3.5-5.1) Chloride Level 101 mmol/L (98-107) Carbon Dioxide Level 31 mmol/L (21-32) Anion Gap 5 (6-14) Blood Urea Nitrogen 26 mg/dL (7-20) Creatinine 1.3 mg/dL (0.6-1.0) Estimated GFR (Cockcroft-Gault) 42.1 BUN/Creatinine Ratio 20 (6-20) Glucose Level 96 mg/dL (70-99) Calcium Level 7.7 mg/dL (8.5-10.1) Total Bilirubin 0.4 mg/dL (0.2-1.0) Aspartate Amino Transf (AST/SGOT) 36 U/L (15-37) Alanine Aminotransferase (ALT/SGPT) 32 U/L (14-59) Alkaline Phosphatase 90 U/L (46-116) Total Protein 6.6 g/dL (6.4-8.2) Albumin 2.6 g/dL (3.4-5.0) Albumin/Globulin Ratio 0.7 (1.0-1.7) Review of Systems Review of Systems Denies N/V/D and FUENTES Assessment and Plan Assessmemt and Plan Assessment 1. Cellultis, on abx 2. Dysphagia and nausea, which have been waxing and waning over the past year. 3. Constipation w/ abd pain and distention 4. Lymphedema LE 5. Acute onchronic systolic CHF with and EF of 30% 6. Morbid obesity, BMI 57 7. Hyperkalemia 8. Acute vasomotor on CKD [address] 1[address] Axillary LN biopsy done, awaiting biopsy results 2. F/u CXR is needed per pulm 3. Continue abx per ID 4. Continue pain management: tramadol, tylenol 5. Continue home meds 6. Zofran prn for nausea 7. Appreciate subspecialty input 8. Reviewed imaging: US and barium swallow 9. Discussed plan of care with nursing 10. PT/OT 11. Recheck CBC and BMP tomorrow 12. Probable DC today if okay per subspecialties Problems: Comment Review of Relevant I have reviewed the following items feli (where applicable) has been applied. Labs Laboratory Tests Test 05/26/17 15:25 05/27/17 05:15 05/28/17 04:20 Prothrombin Time 14.4 SEC (11.7-14.0) Prothromb Time International Ratio 1.2 (0.8-1.1) Vancomycin Level Trough 18.5 mcg/mL (10.0-20.0) Vancomycin Last Dose Date Vancomycin Last Dose Time White Blood Count 10.3 x10^3/uL (4.0-11.0) 8.5 x10^3/uL (4.0-11.0) Red Blood Count 4.40 x10^6/uL (3.50-5.40) 4.10 x10^6/uL (3.50-5.40) Hemoglobin 13.0 g/dL (12.0-15.5) 12.0 g/dL (12.0-15.5) Hematocrit 39.8 % (36.0-47.0) 37.6 % (36.0-47.0) Mean Corpuscular Volume 90 fL (79-100) 92 fL (79-100) Mean Corpuscular Hemoglobin 29 pg (25-35) 29 pg (25-35) Mean Corpuscular Hemoglobin Concent 33 g/dL (31-37) 32 g/dL (31-37) Red Cell Distribution Width 14.9 % (11.5-14.5) 14.7 % (11.5-14.5) Platelet Count 237 x10^3/uL (140-400) 200 x10^3/uL (140-400) Neutrophils (%) (Auto) 69 % (31-73) 61 % (31-73) Lymphocytes (%) (Auto) 18 % (24-48) 17 % (24-48) Monocytes (%) (Auto) 9 % (0-9) 11 % (0-9) Eosinophils (%) (Auto) 4 % (0-3) 10 % (0-3) Basophils (%) (Auto) 1 % (0-3) 1 % (0-3) Neutrophils # (Auto) 7.1 x10^3uL (1.8-7.7) 5.2 x10^3uL (1.8-7.7) Lymphocytes # (Auto) 1.8 x10^3/uL (1.0-4.8) 1.5 x10^3/uL (1.0-4.8) Monocytes # (Auto) 0.9 x10^3/uL (0.0-1.1) 0.9 x10^3/uL (0.0-1.1) Eosinophils # (Auto) 0.4 x10^3/uL (0.0-0.7) 0.8 x10^3/uL (0.0-0.7) Basophils # (Auto) 0.1 x10^3/uL (0.0-0.2) 0.1 x10^3/uL (0.0-0.2) Sodium Level 138 mmol/L (136-145) 137 mmol/L (136-145) Potassium Level 5.5 mmol/L (3.5-5.1) 5.0 mmol/L (3.5-5.1) Chloride Level 101 mmol/L (98-107) 101 mmol/L (98-107) Carbon Dioxide Level 30 mmol/L (21-32) 31 mmol/L (21-32) Anion Gap 7 (6-14) 5 (6-14) Blood Urea Nitrogen 22 mg/dL (7-20) 26 mg/dL (7-20) Creatinine 1.4 mg/dL (0.6-1.0) 1.3 mg/dL (0.6-1.0) Estimated GFR (Cockcroft-Gault) 38.6 42.1 Glucose Level 106 mg/dL (70-99) 96 mg/dL (70-99) Calcium Level 8.7 mg/dL (8.5-10.1) 7.7 mg/dL (8.5-10.1) BUN/Creatinine Ratio 20 (6-20) Total Bilirubin 0.4 mg/dL (0.2-1.0) Aspartate Amino Transf (AST/SGOT) 36 U/L (15-37) Alanine Aminotransferase (ALT/SGPT) 32 U/L (14-59) Alkaline Phosphatase 90 U/L (46-116) Total Protein 6.6 g/dL (6.4-8.2) Albumin 2.6 g/dL (3.4-5.0) Albumin/Globulin Ratio 0.7 (1.0-1.7) Laboratory Tests Test 05/28/17 04:20 White Blood Count 8.5 x10^3/uL (4.0-11.0) Red Blood Count 4.10 x10^6/uL (3.50-5.40) Hemoglobin 12.0 g/dL (12.0-15.5) Hematocrit 37.6 % (36.0-47.0) Mean Corpuscular Volume 92 fL (79-100) Mean Corpuscular Hemoglobin 29 pg (25-35) Mean Corpuscular Hemoglobin Concent 32 g/dL (31-37) Red Cell Distribution Width 14.7 % (11.5-14.5) Platelet Count 200 x10^3/uL (140-400) Neutrophils (%) (Auto) 61 % (31-73) Lymphocytes (%) (Auto) 17 % (24-48) Monocytes (%) (Auto) 11 % (0-9) Eosinophils (%) (Auto) 10 % (0-3) Basophils (%) (Auto) 1 % (0-3) Neutrophils # (Auto) 5.2 x10^3uL (1.8-7.7) Lymphocytes # (Auto) 1.5 x10^3/uL (1.0-4.8) Monocytes # (Auto) 0.9 x10^3/uL (0.0-1.1) Eosinophils # (Auto) 0.8 x10^3/uL (0.0-0.7) Basophils # (Auto) 0.1 x10^3/uL (0.0-0.2) Sodium Level 137 mmol/L (136-145) Potassium Level 5.0 mmol/L (3.5-5.1) Chloride Level 101 mmol/L (98-107) Carbon Dioxide Level 31 mmol/L (21-32) Anion Gap 5 (6-14) Blood Urea Nitrogen 26 mg/dL (7-20) Creatinine 1.3 mg/dL (0.6-1.0) Estimated GFR (Cockcroft-Gault) 42.1 BUN/Creatinine Ratio 20 (6-20) Glucose Level 96 mg/dL (70-99) Calcium Level 7.7 mg/dL (8.5-10.1) Total Bilirubin 0.4 mg/dL (0.2-1.0) Aspartate Amino Transf (AST/SGOT) 36 U/L (15-37) Alanine Aminotransferase (ALT/SGPT) 32 U/L (14-59) Alkaline Phosphatase 90 U/L (46-116) Total Protein 6.6 g/dL (6.4-8.2) Albumin 2.6 g/dL (3.4-5.0) Albumin/Globulin Ratio 0.7 (1.0-1.7) Medications Current Medications Fluconazole (Diflucan) 100 mg DAILY PO Last administered on 05/27/17 20:20; Start 05/26/17 at 09:00 Vancomycin HCl (Vanco Per Pharmacy) 1 each PRN DAILY PRN MC SEE COMMENTS Last administered on 05/26/17 05:48; Start 05/25/17 at 23:00; Stop 05/26/17 at 18:19 ; Status DC Acetaminophen (Tylenol) 650 mg PRN Q6HRS PRN PO MILD PAIN; Start 05/25/17 at 23 :00 Aspirin (Anirudh Aspirin) 325 mg DAILYWBKFT PO Last administered on 05/28/17 08: 37; Start 05/26/17 at 08:00 Carvedilol (Coreg) 3.125 mg BIDWMEALS PO Last administered on 05/28/17 08:38; Start 05/26/17 at 08:00 Hydralazine HCl (Apresoline) 10 mg PRN Q6HRS PRN IVP ELEVATED BP, SEE COMMENTS ; Start 05/25/17 at 23:00 Lisinopril (Prinivil) 2.5 mg DAILY PO Last administered on 05/26/17 09:20; Start 05/26/17 at 09:00; Stop 05/26/17 at 16:36; Status DC Potassium Chloride (Klor-Con) 20 meq DAILYWBKFT PO ; Start 05/26/17 at 08:00; Stop 05/26/17 at 14:36; Status DC Albuterol/ Ipratropium (Duoneb) 3 ml RTQID NEB Last administered on 05/28/17 07:17; Start 05/26/17 at 08:00 Ondansetron HCl (Zofran Odt) 4 mg PRN Q8HRS PRN PO NAUSEA/VOMITING Last administered on 05/26/17 21:46; Start 05/25/17 at 23:00 Ceftriaxone Sodium 1 gm/ Sodium Chloride 50 ml @ 100 mls/hr QHS IV Last administered on 05/27/17 20:19; Start 05/25/17 at 23:30 Azithromycin 500 mg/Sodium Chloride 250 ml @ 250 mls/hr QHS IV Last administered on 05/26/17 20:54; Start 05/25/17 at 23:30; Stop 05/27/17 at 14:20 ; Status DC Nystatin (Nystop) 1 ria BID TP Last administered on 05/28/17 08:37; Start 10/02 at 09:00 Diphenhydramine HCl (Benadryl) 25 mg PRN Q6HRS PRN PO ITCHING; Start 05/25/17 at 23:00 Enoxaparin Sodium (Lovenox 60mg Syringe) 60 mg Q12HR SQ ; Start 05/26/17 at 09: 00; Stop 05/26/17 at 13:14; Status DC Polyethylene Glycol (miraLAX PACKET) 17 gm DAILY PO Last administered on 09:19; Start 05/26/17 at 09:00; Stop 05/26/17 at 09:35; Status DC Pramipexole Dihydrochloride (miraPEX) 0.25 mg [id number] PO Last administered on 08:37; Start 05/26/17 at 09:00 Bisacodyl (Dulcolax Supp) 10 mg PRN DAILY PRN RI CONSTIPATION; Start 05/25/17 at 23:00 Furosemide (Lasix) 40 mg DAILY PO ; Start 05/26/17 at 09:00; Status UNV Fluocinonide (Lidex) 1 ria BID TP Last administered on 05/28/17 08:37; Start 05/26/17 at 09:00 Vancomycin HCl 1 gm/Sodium Chloride 250 ml @ 250 mls/hr Q24H IV ; Start at 23:00; Status UNV Furosemide (Lasix) 40 mg DAILY PO Last administered on 05/28/17 08:37; Start 05/26/17 at 09:00 Metoclopramide HCl (Reglan) 10 mg PRN Q6HRS PRN IV NAUSEA/VOMITING Last administered on 05/26/17 03:15; Start 05/25/17 at 23:00 Sodium Chloride (Normal Saline Flush) 3 ml PRN DAILY PRN IV AFTER MEDS AND BLOOD DRAWS; Start 05/25/17 at 23:00 Potassium Chloride/Sodium Chloride 1,000 ml @ 75 mls/hr [id number] IV Last administered on 05/25/17 23:37; Start 05/25/17 at 23:00; Stop 05/26/17 at 16:36 ; Status DC Vancomycin HCl 1 each 1X ONCE MC Last administered on 05/26/17 18:13; Start 05/26/17 at 17:30; Stop 05/26/17 at 17:31; Status DC Vancomycin HCl 2 gm/Sodium Chloride 500 ml @ 250 mls/hr Q24H IV ; Start at 18:00; Stop 05/26/17 at 18:23; Status DC Polyethylene Glycol (miraLAX PACKET) 17 gm BID PO Last administered on 08:38; Start 05/26/17 at 21:00 Pantoprazole Sodium (Protonix) 40 mg DAILYAC PO Last administered on 05/28/17 05:32; Start 05/26/17 at 11:30 Barium Sulfate (Liquid E-Z Paque) 355 ml 1X ONCE PO Last administered on 11:14; Start 05/26/17 at 10:30; Stop 05/26/17 at 10:31; Status DC Barium Sulfate (E-Z-Hd) 340 gm 1X ONCE PO ; Start 05/26/17 at 10:30; Stop 05/26 at 10:31; Status DC Simethicone/ Sodium Bicarb/ Citric Ac (E-Z-Gas) 1 packet 1X ONCE PO ; Start 10/02 at 10:30; Stop 05/26/17 at 10:31; Status DC Albuterol Sulfate (Ventolin Neb Soln) 2.5 mg PRN Q4HRS PRN NEB SHORTNESS OF BREATH; Start 05/26/17 at 17:45 Tramadol HCl (Ultram) 50 mg PRN Q6HRS PRN PO PAIN Last administered on 02:52; Start 05/26/17 at 20:45 Lidocaine/Sodium Bicarbonate (Buffered Lidocaine 1%) 20 ml STK-MED ONCE IJ ; Start 05/27/17 at 12:51; Stop 05/27/17 at 12:52; Status DC Lidocaine/Sodium Bicarbonate (Buffered Lidocaine 1%) 10 ml 1X ONCE IJ Last administered on 05/27/17 13:20; Start 05/27/17 at 13:30; Stop 05/27/17 at 13:31 ; Status DC Furosemide (Lasix) 40 mg 1X ONCE IVP Last administered on 05/27/17 15:05; Start 05/27/17 at 14:30; Stop 05/27/17 at 14:31; Status DC Sodium Chloride 500 ml @ 500 mls/hr 1X ONCE IV Last administered on 15:07; Start 05/27/17 at 14:30; Stop 05/27/17 at 15:29; Status DC Azithromycin (Zithromax) 250 mg DAILY PO Last administered on 05/28/17 08:37; Start 05/27/17 at 15:00 Active Scripts Active Lisinopril 2.5 Mg Tablet 2.5 Mg PO DAILY 30 Days Carvedilol 3.125 Mg Tablet 3.125 Mg PO BIDWMEALS 30 Days Reported Aspir 81 (Aspirin) 81 Mg Tablet.dr 1 Tab PO DAILY Duoneb 0.5-3(2.5) Mg/3 Ml (Albuterol/Ipratropium) 3 Ml Ampul.neb 3 Ml NEB QID Vitals/I & O Vital Sign - Last 24 Hours 05/27/17 05/27/17 05/27/17 05/27/17 11:00 11:23 15:00 17:05 Temp 98.1 97.8 98.1 97.8 Pulse 81 86 Resp 20 20 B/P (MAP) 122/69 (86) 141/82 (101) Pulse Ox 93 93 95 91 O2 Delivery Room Air Room Air Room Air Room Air 05/27/17 05/27/17 05/27/17 05/27/17 17:20 19:00 19:46 20:20 Temp 97.9 97.9 Pulse 86 91 Resp 20 16 B/P (MAP) 141/82 122/50 (74) Pulse Ox 93 91 91 O2 Delivery Nasal Cannula Room Air Room Air O2 Flow Rate 2.0 05/27/17 05/27/17 05/28/17 05/28/17 20:31 23:00 02:52 03:00 Temp 98.1 97.7 98.1 97.7 Pulse 88 86 Resp 18 16 18 B/P (MAP) 118/74 (89) 109/67 (81) Pulse Ox 93 93 91 O2 Delivery Room Air Room Air Room Air Room Air 05/28/17 05/28/17 05/28/17 05/28/17 03:52 07:00 07:20 08:38 Temp 98.6 98.6 Pulse 85 85 Resp 16 20 B/P (MAP) 127/74 (91) 127/74 Pulse Ox 91 92 94 O2 Delivery Room Air Room Air Room Air Intake and Output 05/27/17 05/27/17 05/28/17 15:00 23:00 07:00 Intake Total 500 ml 200 ml Balance 500 ml 200 ml CHUN BIANCHI III DO May 28, 2017 09:34
[2017-05-28 11:00] VITALS: BP 112/63
--- NOTE | 2017-05-28 11:05 | PDOC3 ---
Discharge Summary Visit Information Date of Discharge: May 28, 2017 Final Diagnosis Bilat lung Adenopathy concerning for Malignancy(?Lymphoma?), Biopsy done, results Pending Pneumonia Brief Hospital Course Allergies Allergies Coded Allergies Type Severity Reaction Last Updated Verified Penicillins Allergy Intermediate severe hives 04/17/16 Yes Vital Signs Vital Signs Date Time Temp Pulse Resp B/P (MAP) Pulse Ox O2 Delivery O2 Flow Rate FiO2 05/28/17 08:38 85 127/74 05/28/17 07:40 Room Air 05/28/17 07:20 94 05/28/17 07:00 98.6 20 98.6 05/27/17 19:00 2.0 Lab Results Laboratory Tests Test 05/26/17 15:25 05/27/17 05:15 05/28/17 04:20 Prothrombin Time 14.4 SEC (11.7-14.0) Prothromb Time International Ratio 1.2 (0.8-1.1) Vancomycin Level Trough 18.5 mcg/mL (10.0-20.0) Vancomycin Last Dose Date Vancomycin Last Dose Time White Blood Count 10.3 x10^3/uL (4.0-11.0) 8.5 x10^3/uL (4.0-11.0) Red Blood Count 4.40 x10^6/uL (3.50-5.40) 4.10 x10^6/uL (3.50-5.40) Hemoglobin 13.0 g/dL (12.0-15.5) 12.0 g/dL (12.0-15.5) Hematocrit 39.8 % (36.0-47.0) 37.6 % (36.0-47.0) Mean Corpuscular Volume 90 fL (79-100) 92 fL (79-100) Mean Corpuscular Hemoglobin 29 pg (25-35) 29 pg (25-35) Mean Corpuscular Hemoglobin Concent 33 g/dL (31-37) 32 g/dL (31-37) Red Cell Distribution Width 14.9 % (11.5-14.5) 14.7 % (11.5-14.5) Platelet Count 237 x10^3/uL (140-400) 200 x10^3/uL (140-400) Neutrophils (%) (Auto) 69 % (31-73) 61 % (31-73) Lymphocytes (%) (Auto) 18 % (24-48) 17 % (24-48) Monocytes (%) (Auto) 9 % (0-9) 11 % (0-9) Eosinophils (%) (Auto) 4 % (0-3) 10 % (0-3) Basophils (%) (Auto) 1 % (0-3) 1 % (0-3) Neutrophils # (Auto) 7.1 x10^3uL (1.8-7.7) 5.2 x10^3uL (1.8-7.7) Lymphocytes # (Auto) 1.8 x10^3/uL (1.0-4.8) 1.5 x10^3/uL (1.0-4.8) Monocytes # (Auto) 0.9 x10^3/uL (0.0-1.1) 0.9 x10^3/uL (0.0-1.1) Eosinophils # (Auto) 0.4 x10^3/uL (0.0-0.7) 0.8 x10^3/uL (0.0-0.7) Basophils # (Auto) 0.1 x10^3/uL (0.0-0.2) 0.1 x10^3/uL (0.0-0.2) Sodium Level 138 mmol/L (136-145) 137 mmol/L (136-145) Potassium Level 5.5 mmol/L (3.5-5.1) 5.0 mmol/L (3.5-5.1) Chloride Level 101 mmol/L (98-107) 101 mmol/L (98-107) Carbon Dioxide Level 30 mmol/L (21-32) 31 mmol/L (21-32) Anion Gap 7 (6-14) 5 (6-14) Blood Urea Nitrogen 22 mg/dL (7-20) 26 mg/dL (7-20) Creatinine 1.4 mg/dL (0.6-1.0) 1.3 mg/dL (0.6-1.0) Estimated GFR (Cockcroft-Gault) 38.6 42.1 Glucose Level 106 mg/dL (70-99) 96 mg/dL (70-99) Calcium Level 8.7 mg/dL (8.5-10.1) 7.7 mg/dL (8.5-10.1) BUN/Creatinine Ratio 20 (6-20) Total Bilirubin 0.4 mg/dL (0.2-1.0) Aspartate Amino Transf (AST/SGOT) 36 U/L (15-37) Alanine Aminotransferase (ALT/SGPT) 32 U/L (14-59) Alkaline Phosphatase 90 U/L (46-116) Total Protein 6.6 g/dL (6.4-8.2) Albumin 2.6 g/dL (3.4-5.0) Albumin/Globulin Ratio 0.7 (1.0-1.7) Laboratory Tests Test 05/28/17 04:20 White Blood Count 8.5 x10^3/uL (4.0-11.0) Red Blood Count 4.10 x10^6/uL (3.50-5.40) Hemoglobin 12.0 g/dL (12.0-15.5) Hematocrit 37.6 % (36.0-47.0) Mean Corpuscular Volume 92 fL (79-100) Mean Corpuscular Hemoglobin 29 pg (25-35) Mean Corpuscular Hemoglobin Concent 32 g/dL (31-37) Red Cell Distribution Width 14.7 % (11.5-14.5) Platelet Count 200 x10^3/uL (140-400) Neutrophils (%) (Auto) 61 % (31-73) Lymphocytes (%) (Auto) 17 % (24-48) Monocytes (%) (Auto) 11 % (0-9) Eosinophils (%) (Auto) 10 % (0-3) Basophils (%) (Auto) 1 % (0-3) Neutrophils # (Auto) 5.2 x10^3uL (1.8-7.7) Lymphocytes # (Auto) 1.5 x10^3/uL (1.0-4.8) Monocytes # (Auto) 0.9 x10^3/uL (0.0-1.1) Eosinophils # (Auto) 0.8 x10^3/uL (0.0-0.7) Basophils # (Auto) 0.1 x10^3/uL (0.0-0.2) Sodium Level 137 mmol/L (136-145) Potassium Level 5.0 mmol/L (3.5-5.1) Chloride Level 101 mmol/L (98-107) Carbon Dioxide Level 31 mmol/L (21-32) Anion Gap 5 (6-14) Blood Urea Nitrogen 26 mg/dL (7-20) Creatinine 1.3 mg/dL (0.6-1.0) Estimated GFR (Cockcroft-Gault) 42.1 BUN/Creatinine Ratio 20 (6-20) Glucose Level 96 mg/dL (70-99) Calcium Level 7.7 mg/dL (8.5-10.1) Total Bilirubin 0.4 mg/dL (0.2-1.0) Aspartate Amino Transf (AST/SGOT) 36 U/L (15-37) Alanine Aminotransferase (ALT/SGPT) 32 U/L (14-59) Alkaline Phosphatase 90 U/L (46-116) Total Protein 6.6 g/dL (6.4-8.2) Albumin 2.6 g/dL (3.4-5.0) Albumin/Globulin Ratio 0.7 (1.0-1.7) Brief Hospital Course Ms. Hannah is a 57 old [sex] who presented with [ ]SOA. Ad,itted and got antibx nebs and a Biopsy of a L axillary node. Results pending Today seen and examined VSS At baseline Will dc with close out pt fu Total time 32 minutes Discharge Information Scheduled Aspirin (Aspir 81), 1 TAB PO DAILY, (Reported) Carvedilol (Carvedilol), 3.125 MG PO BIDWMEALS Ipratropium/Albuterol Sulfate (Duoneb 0.5-3(2.5) Mg/3 Ml), 3 ML NEB QID, ( Reported) Lisinopril (Lisinopril), 2.5 MG PO DAILY CHUN BIANCHI III DO May 28, 2017 11:04
--- NOTE | 2017-05-28 11:10 | PDOC ---
PULMONARY PROGRESS NOTES Subjective feels better Vitals Vital Signs Date Time Temp Pulse Resp B/P (MAP) Pulse Ox O2 Delivery O2 Flow Rate FiO2 05/28/17 08:38 85 127/74 05/28/17 07:40 Room Air 05/28/17 07:20 94 05/28/17 07:00 98.6 20 98.6 05/27/17 19:00 2.0 General: Alert, No acute distress Lungs: Clear Cardiovascular: S1 Abdomen: Soft, Other (obese) Neuro Exam: Alert Extremities: Other (1+edema) Labs Laboratory Tests Test 05/26/17 15:25 05/27/17 05:15 05/28/17 04:20 Prothrombin Time 14.4 SEC (11.7-14.0) Prothromb Time International Ratio 1.2 (0.8-1.1) Vancomycin Level Trough 18.5 mcg/mL (10.0-20.0) Vancomycin Last Dose Date Vancomycin Last Dose Time White Blood Count 10.3 x10^3/uL (4.0-11.0) 8.5 x10^3/uL (4.0-11.0) Red Blood Count 4.40 x10^6/uL (3.50-5.40) 4.10 x10^6/uL (3.50-5.40) Hemoglobin 13.0 g/dL (12.0-15.5) 12.0 g/dL (12.0-15.5) Hematocrit 39.8 % (36.0-47.0) 37.6 % (36.0-47.0) Mean Corpuscular Volume 90 fL (79-100) 92 fL (79-100) Mean Corpuscular Hemoglobin 29 pg (25-35) 29 pg (25-35) Mean Corpuscular Hemoglobin Concent 33 g/dL (31-37) 32 g/dL (31-37) Red Cell Distribution Width 14.9 % (11.5-14.5) 14.7 % (11.5-14.5) Platelet Count 237 x10^3/uL (140-400) 200 x10^3/uL (140-400) Neutrophils (%) (Auto) 69 % (31-73) 61 % (31-73) Lymphocytes (%) (Auto) 18 % (24-48) 17 % (24-48) Monocytes (%) (Auto) 9 % (0-9) 11 % (0-9) Eosinophils (%) (Auto) 4 % (0-3) 10 % (0-3) Basophils (%) (Auto) 1 % (0-3) 1 % (0-3) Neutrophils # (Auto) 7.1 x10^3uL (1.8-7.7) 5.2 x10^3uL (1.8-7.7) Lymphocytes # (Auto) 1.8 x10^3/uL (1.0-4.8) 1.5 x10^3/uL (1.0-4.8) Monocytes # (Auto) 0.9 x10^3/uL (0.0-1.1) 0.9 x10^3/uL (0.0-1.1) Eosinophils # (Auto) 0.4 x10^3/uL (0.0-0.7) 0.8 x10^3/uL (0.0-0.7) Basophils # (Auto) 0.1 x10^3/uL (0.0-0.2) 0.1 x10^3/uL (0.0-0.2) Sodium Level 138 mmol/L (136-145) 137 mmol/L (136-145) Potassium Level 5.5 mmol/L (3.5-5.1) 5.0 mmol/L (3.5-5.1) Chloride Level 101 mmol/L (98-107) 101 mmol/L (98-107) Carbon Dioxide Level 30 mmol/L (21-32) 31 mmol/L (21-32) Anion Gap 7 (6-14) 5 (6-14) Blood Urea Nitrogen 22 mg/dL (7-20) 26 mg/dL (7-20) Creatinine 1.4 mg/dL (0.6-1.0) 1.3 mg/dL (0.6-1.0) Estimated GFR (Cockcroft-Gault) 38.6 42.1 Glucose Level 106 mg/dL (70-99) 96 mg/dL (70-99) Calcium Level 8.7 mg/dL (8.5-10.1) 7.7 mg/dL (8.5-10.1) BUN/Creatinine Ratio 20 (6-20) Total Bilirubin 0.4 mg/dL (0.2-1.0) Aspartate Amino Transf (AST/SGOT) 36 U/L (15-37) Alanine Aminotransferase (ALT/SGPT) 32 U/L (14-59) Alkaline Phosphatase 90 U/L (46-116) Total Protein 6.6 g/dL (6.4-8.2) Albumin 2.6 g/dL (3.4-5.0) Albumin/Globulin Ratio 0.7 (1.0-1.7) Laboratory Tests Test 05/28/17 04:20 White Blood Count 8.5 x10^3/uL (4.0-11.0) Red Blood Count 4.10 x10^6/uL (3.50-5.40) Hemoglobin 12.0 g/dL (12.0-15.5) Hematocrit 37.6 % (36.0-47.0) Mean Corpuscular Volume 92 fL (79-100) Mean Corpuscular Hemoglobin 29 pg (25-35) Mean Corpuscular Hemoglobin Concent 32 g/dL (31-37) Red Cell Distribution Width 14.7 % (11.5-14.5) Platelet Count 200 x10^3/uL (140-400) Neutrophils (%) (Auto) 61 % (31-73) Lymphocytes (%) (Auto) 17 % (24-48) Monocytes (%) (Auto) 11 % (0-9) Eosinophils (%) (Auto) 10 % (0-3) Basophils (%) (Auto) 1 % (0-3) Neutrophils # (Auto) 5.2 x10^3uL (1.8-7.7) Lymphocytes # (Auto) 1.5 x10^3/uL (1.0-4.8) Monocytes # (Auto) 0.9 x10^3/uL (0.0-1.1) Eosinophils # (Auto) 0.8 x10^3/uL (0.0-0.7) Basophils # (Auto) 0.1 x10^3/uL (0.0-0.2) Sodium Level 137 mmol/L (136-145) Potassium Level 5.0 mmol/L (3.5-5.1) Chloride Level 101 mmol/L (98-107) Carbon Dioxide Level 31 mmol/L (21-32) Anion Gap 5 (6-14) Blood Urea Nitrogen 26 mg/dL (7-20) Creatinine 1.3 mg/dL (0.6-1.0) Estimated GFR (Cockcroft-Gault) 42.1 BUN/Creatinine Ratio 20 (6-20) Glucose Level 96 mg/dL (70-99) Calcium Level 7.7 mg/dL (8.5-10.1) Total Bilirubin 0.4 mg/dL (0.2-1.0) Aspartate Amino Transf (AST/SGOT) 36 U/L (15-37) Alanine Aminotransferase (ALT/SGPT) 32 U/L (14-59) Alkaline Phosphatase 90 U/L (46-116) Total Protein 6.6 g/dL (6.4-8.2) Albumin 2.6 g/dL (3.4-5.0) Albumin/Globulin Ratio 0.7 (1.0-1.7) Medications Active Scripts Medications Dose Route/Sig Max Daily Dose Days Date Category Aspir 81 (Aspirin) 81 Mg Tablet.dr 1 Tab PO DAILY 05/26/17 Reported Duoneb 0.5-3(2.5) Mg/3 Ml (Albuterol/Ipratropium) 3 Ml Ampul.neb 3 Ml NEB QID 04/19/16 Reported Lisinopril 2.5 Mg Tablet 2.5 Mg PO DAILY 30 04/19/16 Rx Carvedilol 3.125 Mg Tablet 3.125 Mg PO BIDWMEALS 30 04/19/16 Rx Impression . 1. Abnormal ct chest with bilateral lung opacities of unclear etiology, infectious vs sarcoid vs malignancy (lymphoma). These findings were also seen in 2016 ct chest but axillary adenopathy have increased/ ? lymphoma vs sarcoid. An infectious component cannot be ruled out due to recent vomiting with suspected aspiration 2. Panniculitis 3. 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 Morbid obesity Plan . 1. Antibiotic 2. axillary LN biopsy , prelim result with no granuloma, or malignancy, flow pending to r/o lymphoma 3. Oncology consulted/ appreciate input 4. repeat CXR as OP in a week 5. Can go home. pt states she has difficulty going home as she does not drive, uses a walker, and has no source of transportation. f/u is an issue SANDEEP SERRANO MD May 28, 2017 11:10
--- NOTE | 2017-05-28 12:11 | PDOC ---
Subjective: Subjective: No complaints. No dysphagia. No BM for a couple days. Objective: Vital Signs: Vital Signs Date Time Temp Pulse Resp B/P (MAP) Pulse Ox O2 Delivery O2 Flow Rate FiO2 05/28/17 11:00 98.5 83 20 112/63 (79) 95 Room Air 98.5 05/27/17 19:00 2.0 Imaging: [employer] Bedside Swallow Eval Bedside swallow eval ordered d/t pt c/o pills sticking at or just below level of larynx. Pt clarified that only small pills stick, stated she had no s/s w/ food or liquids. Current eval w/normal oral motor exam, laryngeal function WNLs cough, phonation and swallow across consistencies including straw drinks of thin. Pt able to swallow a prescription caplet provided by [facility] w/thin via cup w/ o s/s. IMPRESSIONS: Functional oropharyngeal swallow. Poss esophageal dysphagia but of limited impact as this is only affecting swallow of small pills. Encouraged pt to drink liquids before taking meds and to roll small pills that stick in margarine or butter prior to swallowing w/thin liquid. No additional imaging studies indicated at this time. Encouraged pt to f/u w/GI if s/s increase in severity. RECOMMENDATIONS: Resume regular diet, thin liquids. Meds as rec'd above. Sit up to eat and drink. No further [employer] f/u indicated at this time. PE: GEN: NAD, in chair, reclined ABD: obese NEURO/PSYCH: A & O 3 A/P: Cellulitis Abnormal CT (@ [facility]) -s/p axillary adenopathy biopsy yesterday; did not have thyroid biopsy Globus/dysphagia - not currently bothersome -bothersome for years, right-sided, felt w/ small pills -h/o GERD, currently asymptomatic, on empiric PPI -barium swallow w/ hiatal hernia, US w/ right thyroid nodule -[employer] eval as above Irregular bowel habits -was constipated when arrived, then had loose stools, none for a couple days -no previous colonoscopy -- DC plans noted. Does need screening colonoscopy +/- EGD. Follow-up will be difficult w/o insurance or transportation. ?thyroid biopsy JUNIE PEOPLES May 28, 2017 12:11
--- NOTE | 2017-05-28 14:23 | RAD ---
Ultrasound-guided biopsy of right thyroid nodule: Clinical History: Dominant right thyroid nodule, hypofunctional on thyroid scintigraphy. Referring physician: Dr. Cullen. Procedure: Risks and benefits of the procedure were discussed with the patient, and informed consent was obtained. Following standard sterile preparation and local anesthesia with lidocaine, real-time ultrasound guidance was used to perform a fine needle aspirate biopsy of the nodule at the right thyroid lobe. 4 passes was made with a 25 gauge needle. Patient tolerated the procedure well without complications. Final pathology is pending. Impression: Ultrasound-guided fine needle aspirate biopsy of right thyroid nodule.
[2017-05-28 15:00] VITALS: BP 114/79
[2017-05-28 17:00] VITALS: BP 114/79
--- NOTE | 2017-06-01 08:11 | PATHOLOGY ---
CYTOPATHOLOGY REPORT CLINICAL HISTORY: Right thyroid lobe. SPECIMEN(S) RECEIVED: A.Fine needle aspiration, Right thyroid FINAL DIAGNOSIS: Fine needle aspiration, right thyroid: - [place] category: Non-diagnostic. - Very few follicular cells are present, predominantly blood present. (see comment) COMMENT: The material aspirated may not be nutrition representative. Suggest radiological and clinical correlation and re-aspiration if clinically indicated. (SHA:mgr; 05/29/2017) PATHOLOGIST: Elijah Black M.D. REPORT ELECTRONICALLY SIGNED BY: Elijah Black M.D. DATE/TIME: 06/01/2017 08:11 GROSS PATHOLOGY: A. Fine needle aspiration, Right thyroid: The specimen is labeled "Henry Hannah" and consists of two fixed slides, two air dried slides. Thirty mL of clear red fluid in fixative from the needle rinse is also submitted and one ThinPrep slide and a cell block were prepared from this material. (clt 05.28.2017) Also received is the RNARetain vial which will be held for molecular studies if needed. BONDING SUPERVISOR(S): DARRON Cho([facility]) INITIAL CPT CODE(S): A; 13977 Professional services [place] [address] Technical services performed by [facility] at [address] [place] [address], [address], [place] [address]. CC: Dr. Pizarro PATIENT: HENRY HANNAH /AGE: 5 1960 (Age: 57) SEX: F PATIENT #: [id number] ALT CASE #: SPECIMEN COLLECTION DATE: 05/25/2017 SPECIMEN RECEIVED DATE: 05/28/[address] [facility] [address] [place] [address], [address] [place] [address] PHONE: [phone] DIRECTOR: Edis Badillo M.D. * * * END OF REPORT * * *
--- NOTE | 2017-06-02 00:09 | PATHOLOGY ---
PATHOLOGY REPORT * * * * * * * * FINAL DIAGNOSIS: Lymph node, left axilla, needle core biopsy: - MANTLE CELL LYMPHOMA (PLEASE SEE COMMENT). - KAPPA PREDOMINANT PLASMACYTOSIS SPECIMEN Specimen: Lymph node(s) Procedure: Biopsy Tumor Site: Lymph node(s) Specify Site(s): left axilla TUMOR Histologic Type (Based on the 2008 WHO Classification): Mature B-Cell Neoplasms Mantle cell lymphoma SPECIAL STUDIES Immunophenotyping (Flow Cytometry and / or Immunohistochemistry): Performed, see separate report: Flow cytometry from [facility], [id number] Cytogenetic Studies: Not performed Molecular Genetic Studies: Not performed COMMENT: Examination of the left axillary lymph node needle core biopsy shows proliferation of small neoplastic lymphoid cells with fairly round nuclear borders, clumped, and inconspicuous nucleoli. Immunophenotypic studies by flow cytometry reveal monoclonal B cells (35% of total cells) expressing CD19, CD20, CD23, and partial CD5. The findings are compatible with mature B cell lymphoproliferative disorder. These cells are lambda light chain restricted with moderate bright surface light chain expression and express CD19, bright CD20, CD23, partial CD5, and are negative for CD10. CD38 is expressed on 21% of B cells. CD38 expression is less than 30% which is a favorable prognostic indicator in cases of CLL/SLL. The immunophenotype is not pathognomic for a particular B cell neoplasm subtype, but can be seen in atypical CLL/SLL, marginal zone lymphoma/leukemia and mantle cell lymphoma/leukemia (please see separate flow cytometry report from [employer] ([id number]). To confirm flow cytometric findings and characterize the lymphoma cells in a tissue architectural context, immunohistochemical stains are performed with appropriate controls: (Block A1) CD20: positive CD5: partial CD20 co-expression BCL-1: positive CD43: positive BCL-2: positive CD3: highlights T lymphoid cells CD23: negative CD10: few B cells within germinal centers BCL-6: highlights B lymphoid cells CD138: highlights plasma cells, comprising approximately 20% Ki-67: 5-10% proliferation fraction [place] and lambda LOLI: kappa light chain predominant Based on the morphology and immunohistochemical staining pattern and flow cytometry, these findings are consistent with involvement by mantle cell lymphoma. By flow cytometry, the mantle cell lymphoma is lambda restricted. Immunohistochemical stains show that the plasma cells highlighted by CD138 are kappa predominant. The significance of the findings is uncertain however, these may represent biclonal lymphoproliferative disorder (mantle cell lymphoma and plasma cell neoplasm). Correlation with clinical findings to include presence of hypercalcemia, anemia, bone lesion and renal insufficiency is recommended. Correlation with clinical findings is recommended. These findings were discussed with Dr. Belle Lemon on 05/29/17 at 1:00 pm. Co-reviewed by Dr. Leigh Barraza. (JMQ:mgr; 05/29/2017) REPORT ELECTRONICALLY SIGNED BY: Payton Parisi M.D. DATE/TIME: 06/02/2017 00:07 * * * * * * * * GROSS PATHOLOGY: Received in formalin labeled "Henry Hannah, left axillary lymph node biopsy," are 4 distinct needle cores of low soft tissue ranging from 0.6 to 1.4 cm in length, which are submitted entirely in cassette A1. ([facility]; 05/27/17) INITIAL CPT CODE(S): 11979, 17625, 20478(9), 32811, 86782, 96886 Professional services performed by [facility] at [facility], [address] [place] [address]. Technical services performed by [facility] at [address] [place] [address], [facility] [address] [address]. SPECIMEN(S) RECEIVED: A.Left axillary lymph node biopsy CLINICAL HISTORY: Left axillary lymph node enlarged PATIENT: HENRY HANNAH /AGE: 5 1960 (Age: 57) PATIENT #: [id number] ALT CASE #: SPECIMEN COLLECTION DATE: 05/27/2017 SPECIMEN RECEIVED DATE: 05/27/2017 [facility] [place] [address] - PHONE: [phone] * * * END OF REPORT * * *
== END 2017-05-28 17:45 | disposition home or self-care (01) | DRG 823 ==
LOC: 4 NORTH 21:20
PROVIDERS: ADMIT Internal Medicine Hematology & Oncology; ATTEND Internal Medicine Hematology & Oncology
PROC: 07B63ZX Excision of Left Axillary Lymphatic, Percutaneous Approach, Diagnostic (ICD-10-PCS; 2017-05-27)
PROC: 0GBH3ZX Excision of Right Thyroid Gland Lobe, Percutaneous Approach, Diagnostic (ICD-10-PCS; principal; 2017-05-28)
DX: C83.14 Mantle cell lymphoma, lymph nodes of axilla and upper limb (principal); J18.9 Pneumonia, unspecified organism; N17.0 Acute kidney failure with tubular necrosis; I50.23 Acute on chronic systolic (congestive) heart failure; Z68.43 Body mass index [BMI] 50.0-59.9, adult; I13.0 Hypertensive heart and chronic kidney disease with heart failure and stage 1 through stage 4 chronic kidney disease, or unspecified chronic kidney disease; R65.10 Systemic inflammatory response syndrome (SIRS) of non-infectious origin without acute organ dysfunction; L03.116 Cellulitis of left lower limb; L03.115 Cellulitis of right lower limb; E04.1 Nontoxic single thyroid nodule; R59.0 Localized enlarged lymph nodes; E66.01 Morbid (severe) obesity due to excess calories; E78.5 Hyperlipidemia, unspecified; E87.5 Hyperkalemia; F32.9 Major depressive disorder, single episode, unspecified; F41.9 Anxiety disorder, unspecified; J44.9 Chronic obstructive pulmonary disease, unspecified; K21.9 Gastro-esophageal reflux disease without esophagitis; K42.9 Umbilical hernia without obstruction or gangrene; K44.9 Diaphragmatic hernia without obstruction or gangrene; K59.00 Constipation, unspecified; M79.3 Panniculitis, unspecified; N18.3 Chronic kidney disease, stage 3 (moderate); R13.10 Dysphagia, unspecified; Z79.899 Other long term (current) drug therapy; Z79.82 Long term (current) use of aspirin; Z88.0 Allergy status to penicillin; Z82.0 Family history of epilepsy and other diseases of the nervous system; Z82.49 Family history of ischemic heart disease and other diseases of the circulatory system
CPT/HCPCS: 36415; 38505; 60300; 74220; 76536; 76942; 80048; 80053; 80202; 85027; 85610; 87324; 88173; 88184; 88185; 94250; 94640; 94760; A6539; J0456; J0696; J1940; J2765; J7040; J7050; J7620; Q0144; Q0162; 92610; J7030

== ENCOUNTER 2017-08-13 07:48 | Inpatient (IN) | payer OTHER ==
[~2017-08-13] VITALS: Ht 171.4 cm; Wt 154.0 kg
[~2017-08-13 07:48] MED LIST changes: +ALLO100T PO; +ASPI-482 PO; +DOCU-109 PO; +FURO40TA4 PO; +LISI-338 PO; +METO-239 PO; +NYST60PO TP; +OXYC1TAB7 PO; +PROAIR HFA8.5 GM INH
[2017-08-13] MEDS ORDERED: ASPIRIN 325 MG TABLET PO ONE (08:00)
--- NOTE | 2017-08-13 08:04 | EKG ---
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
[2017-08-13] MEDS ORDERED: MORPHINE SULFATE 4 MG/ML DISP.SYRIN. IV PRN ×2 (08:15→10:45)
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
[2017-08-13 08:40] LABS: BASO % 0 % (0-3); EOS % 3 % (0-3); HEMATOCRIT 31.4 % (36.0-47.0); HEMOGLOBIN 10.3 g/dL (12.0-15.5); LYMPH # 0.1 x10^3/uL (1.0-4.8); LYMPH % 2 % (24-48); MEAN CORPUSCULAR HEMOGLOBIN 29 pg (25-35); MEAN CORPUSCULAR HGB CONC 33 g/dL (31-37); MEAN CORPUSCULAR VOLUME 88 fL (79-100); MONO % 13 % (0-9); NEUT % 82 % (31-73); PLATELET COUNT 336 x10^3/uL (140-400); RED BLOOD COUNT 3.58 x10^6/uL (3.50-5.40); WHITE BLOOD COUNT 5.6 x10^3/uL (4.0-11.0)
--- NOTE | 2017-08-13 08:53 | RAD ---
Examination: Frontal view of the chest History: History of mid chest pain Comparison: 08/04/2017. Findings: Moderate cardiomegaly. Right-sided Port-A-Cath is identified. Mild prominent appearing bilateral interstitial lung markings likely mild congestive changes or mild interstitial infiltrates. Impression: 1. Mild cardiomegaly with mild prominent appearing bilateral interstitial lung markings likely mild congestive changes or infiltrates.
[2017-08-13 08:58] LABS: INR 1.1 (0.8-1.1); PROTHROMBIN TIME PATIENT 13.3 SEC (11.7-14.0)
[2017-08-13 09:17] LABS: CALCIUM 8.4 mg/dL (8.5-10.1); CREATININE 0.9 mg/dL (0.6-1.0); GFR 64.3; POTASSIUM 3.8 mmol/L (3.5-5.1)
[2017-08-13 09:24] LABS: ALBUMIN 2.7 g/dL (3.4-5.0); ALBUMIN/GLOBULIN RATIO 0.7 (1.0-1.7); TOTAL BILIRUBIN 1.4 mg/dL (0.2-1.0); TOTAL PROTEIN 6.8 g/dL (6.4-8.2)
[2017-08-13 09:28] LABS: BILIRUBIN,URINE NEGATIVE (NEG); GLUCOSE,URINE NEGATIVE (NEG); NITRITE,URINE NEGATIVE (NEG); PH,URINE 8.5; PROTEIN,URINE NEGATIVE (NEG-TRACE)
[2017-08-13 09:32] LABS: BARBITURATES NEG (NEG); BENZODIAZEPINES NEG (NEG); CANNABINOIDS NEG (NEG); COCAINE NEG (NEG); METHADONE NEG (NEG); OPIATES POS (NEG); PHENCYCLIDINE NEG (NEG)
[2017-08-13 09:34] LABS: BACTERIA,URINE FEW /HPF (0-FEW); RBC,URINE OCC /HPF (0-2); SQUAMOUS EPITHELIAL CELL,UR MANY /LPF
[2017-08-13 09:34] LABS: CKMB MASS 1.2 ng/mL (0.0-3.6); CREATINE KINASE 46 U/L (26-192)
[2017-08-13] MEDS ORDERED: ONDANSETRON PF 4 MG/2 ML VIAL. IV PRN ×2 (10:45→13:00)
[2017-08-13] MEDS ORDERED: NITROGLYCERIN SUBLINGUAL 0.4 MG BOTTLE OF 25. SL PRN (10:45)
[2017-08-13] MEDS ORDERED: ACETAMINOPHEN 325 MG TABLET. PO PRN (10:45)
[2017-08-13] MEDS ORDERED: CLINDAMYCIN 900MG PREMIX 50 ML IV ONE (11:00)
[2017-08-13 11:46] LABS: % BASOS 3 % (0-3); % EOS 2 % (0-5)
[2017-08-13 11:47] LABS: ANISOCYTOSIS PRESENT; PLT ESTIMATE ADEQUATE (ADEQUATE)
[2017-08-13 12:25] VITALS: BP 152/82
[2017-08-13] MEDS: NYSTATIN TOPICAL POWDER 15GM BOTTLE. TP SCH ×2 (13:00→22:19)
[2017-08-13] MEDS ORDERED: NON FORMULARY ITEM (Albuterol Sulfate (Proair Hfa Inhaler) 1 PUFF) INH PRN (13:00)
[2017-08-13] MEDS ORDERED: ACETAMINOPHEN 500 MG TABLET PO PRN (13:00)
--- NOTE | 2017-08-13 13:07 | PDOC1 ---
History and Physical Date of Admission Date of Admission DATE: 08/13/17 TIME: 12:58 Identification/Chief Complaint Chief Complaint Suicidal, left leg swollen and pain Problems: Source Source: Caregiver, Chart review, Patient History of Present Illness History of Present Illness 57 y.o obese female who was just dcd 3 days ago by colleague for the ff dx: 1. 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 The lymphadenopathy has progressed between 05/2017 to 07/2017. 2. morbid obesity, BMI 56 3. acute on chronic systolic CHF, ejection fraction of only 20-25%. 4. HTn, poor control, had not been treated 5. anxiety and depression, suicidal intent here for 3 days. 6. hyponatremia and transaminitis from CHF She is homeless, left leg is swolllen with one good size blister./bullae that seems about to burst, no open wounds, left leg is red, tender to touch, hot, swollen, She cries, she admits to SI, getting any sharp objects to end it all as she does not have any support and does not see any purpose in her life, No prev attempts of Suicide, When I asked her, she would not want to be involuntarily committed, also does not want to go back to homeless care home,. She is back here bec the homeless care home could only take her for 3 days, She claims she has friends? that she can go to, Friends know about her SI, Both parents and only brother is , no kids, Past Medical History Cardiovascular: CHF, HTN, Hyperlipidemia Pulmonary: Asthma, COPD, Other Psych: Anxiety Past Surgical History Past Surgical History: Other Family History Family History: Coronary Artery Disease Social History Smoke: No ALCOHOL: none Drugs: None Current Medications Current Medications Current Medications Aspirin (Anirudh Aspirin) 325 mg 1X ONCE PO Last administered on 08/13/17 09:03 ; Start 08/13/17 at 08:00; Stop 08/13/17 at 08:01; Status DC Morphine Sulfate 4 mg PRN Q2HR PRN IV PAIN GREATER THAN 3/10 Last administered on 08/13/17 09:04; Start 08/13/17 at 08:15 Ondansetron HCl (Zofran) 4 mg PRN Q8HRS PRN IV NAUSEA/VOMITING; Start 08/13/17 at 10:45; Stop 08/13/17 at 12:56; Status DC Morphine Sulfate 4 mg PRN Q2HR PRN IV PAIN; Start 08/13/17 at 10:45; Stop 08/14 at 10:44 Acetaminophen (Tylenol) 650 mg PRN Q4HRS PRN PO FEVER; Start 08/13/17 at 10:45 ; Stop 08/14/17 at 10:44 Nitroglycerin (Nitrostat) 0.4 mg PRN Q5MIN PRN SL CHEST PAIN; Start 08/13/17 at 10:45; Stop 08/14/17 at 10:44 Clindamycin Phosphate 50 ml @ 100 mls/hr Q8HRS IV ; Start 08/13/17 at 22:00 Clindamycin Phosphate 50 ml @ 50 mls/hr 1X ONCE IV Last administered on t 11:05; Start 08/13/17 at 11:00; Stop 08/13/17 at 11:59; Status DC Ondansetron HCl (Zofran) 4 mg PRN Q6HRS PRN IV NAUSEA/VOMITING; Start 08/13/17 at 13:00; Stop 08/14/17 at 12:59; Status UNV Acetaminophen (Tylenol) 500 mg PRN Q6HRS PRN PO MILD PAIN / TEMP; Start at 13:00; Status UNV Allopurinol (Zyloprim) 100 mg DAILY PO ; Start 08/14/17 at 09:00; Status UNV Docusate Sodium (Colace) 100 mg DAILY PO ; Start 08/14/17 at 09:00; Status UNV Furosemide (Lasix) 40 mg DAILY PO ; Start 08/14/17 at 09:00; Status UNV Lisinopril (Prinivil) 5 mg DAILY PO ; Start 08/14/17 at 09:00; Status UNV Metoprolol Succinate (Toprol Xl) 75 mg DAILY PO ; Start 08/14/17 at 09:00; Status UNV Nystatin (Nystop) 1 alvin BID TP ; Start 08/13/17 at 21:00; Status UNV Oxycodone/ Acetaminophen (Percocet 5/325) 1 tab PRN Q4HRS PRN PO PAIN; Start at 13:00; Status UNV Non-Formulary Medication 1 puff PRN Q6HRS PRN INH SHORTNESS OF BREATH; Start at 13:00; Status UNV Active Scripts Active Oxycodone-Acetaminophen 5-325 (Oxycodone Hcl/Acetaminophen) 1 Each Tablet 1 Tab PO PRN Q4HRS PRN Colace (Docusate Sodium) 100 Mg Capsule 100 Mg PO DAILY Proair Hfa Inhaler (Albuterol Sulfate) 8.5 Gm Hfa.aer.ad 1 Puff INH PRN Q6HRS PRN Nystop (Nystatin) 60 Gm Powder 1 Alvin TP BID 14 Days Lisinopril 5 Mg Tablet 5 Mg PO DAILY Metoprolol Succinate ( Xl ) (Metoprolol Succinate) 25 Mg Tab.er.24h 75 Mg PO DAILY Furosemide 40 Mg Tablet 40 Mg PO DAILY Allopurinol 100 Mg Tablet 100 Mg PO DAILY Allergies Allergies: Coded Allergies: Penicillins (Verified Allergy, Intermediate, 07/31/17) TOLERATES ROCEPHIN ROS Review of System depressed, left leg pain, hurt everywhere Physical Exam General: Alert, Oriented X3, No acute distress, Other (crying) HEENT: Atraumatic, PERRLA, EOMI Lungs: Other (oct) Heart: S1S2 Cardiovascular: S1, S2 Breasts: Normal, Rt breast nml w/o mass, Lt breast nml w/o mass, Nipples normal Abdomen: Soft, Other (obese, no guarding no rebound non tender, NABS) Extremities: Other (left leg edema with redness on dorsal side, 1 signif size bullae/vesicle, tender to exam) Neuro: Normal gait, Normal speech, Strength at 5/5 X4 ext, Normal tone, Sensation intact, Cranial nerves 3-12 NL, Reflexes 2+ Psych/Mental Status: Mental status NL, Mood NL Vitals Vitals Vital Signs Date Time Temp Pulse Resp B/P (MAP) Pulse Ox O2 Delivery O2 Flow Rate FiO2 08/13/17 12:48 97 08/13/17 11:09 107 20 143/71 (95) Room Air 08/13/17 07:48 98.0 98.0 Labs Labs Laboratory Tests Test 08/13/17 08:25 08/13/17 08:55 08/13/17 09:18 White Blood Count 5.6 x10^3/uL (4.0-11.0) Red Blood Count 3.58 x10^6/uL (3.50-5.40) Hemoglobin 10.3 g/dL (12.0-15.5) Hematocrit 31.4 % (36.0-47.0) Mean Corpuscular Volume 88 fL (79-100) Mean Corpuscular Hemoglobin 29 pg (25-35) Mean Corpuscular Hemoglobin Concent 33 g/dL (31-37) Red Cell Distribution Width 18.0 % (11.5-14.5) Platelet Count 336 x10^3/uL (140-400) Neutrophils (%) (Auto) 82 % (31-73) Lymphocytes (%) (Auto) 2 % (24-48) Monocytes (%) (Auto) 13 % (0-9) Eosinophils (%) (Auto) 3 % (0-3) Basophils (%) (Auto) 0 % (0-3) Neutrophils # (Auto) 4.6 x10^3uL (1.8-7.7) Lymphocytes # (Auto) 0.1 x10^3/uL (1.0-4.8) Monocytes # (Auto) 0.8 x10^3/uL (0.0-1.1) Eosinophils # (Auto) 0.1 x10^3/uL (0.0-0.7) Basophils # (Auto) 0.0 x10^3/uL (0.0-0.2) Segmented Neutrophils % 85 % (35-66) Lymphocytes % 1 % (24-48) Monocytes % 9 % (0-10) Eosinophils % 2 % (0-5) Basophils % 3 % (0-3) Platelet Estimate Adequate (ADEQUATE) Anisocytosis Present Prothrombin Time 13.3 SEC (11.7-14.0) Prothromb Time International Ratio 1.1 (0.8-1.1) Sodium Level 138 mmol/L (136-145) Potassium Level 3.8 mmol/L (3.5-5.1) Chloride Level 101 mmol/L (98-107) Carbon Dioxide Level 34 mmol/L (21-32) Anion Gap 3 (6-14) Blood Urea Nitrogen 12 mg/dL (7-20) Creatinine 0.9 mg/dL (0.6-1.0) Estimated GFR (Cockcroft-Gault) 64.3 BUN/Creatinine Ratio 13 (6-20) Glucose Level 102 mg/dL (70-99) Calcium Level 8.4 mg/dL (8.5-10.1) Magnesium Level 2.0 mg/dL (1.8-2.4) Total Bilirubin 1.4 mg/dL (0.2-1.0) Aspartate Amino Transf (AST/SGOT) 23 U/L (15-37) Alanine Aminotransferase (ALT/SGPT) 33 U/L (14-59) Alkaline Phosphatase 72 U/L (46-116) Creatine Kinase 46 U/L (26-192) Creatine Kinase MB (Mass) 1.2 ng/mL (0.0-3.6) Creatine Kinase MB Relative Index % (0-4) Troponin I Quantitative 0.034 ng/mL (0.000-0.055) LW-Wxy-K-Type Natriuretic Peptide 9919 pg/mL (0-124) Total Protein 6.8 g/dL (6.4-8.2) Albumin 2.7 g/dL (3.4-5.0) Albumin/Globulin Ratio 0.7 (1.0-1.7) Thyroid Stimulating Hormone (TSH) 1.163 uIU/mL (0.358-3.74) Urine Collection Type Void Urine Color Yellow Urine Clarity Clear Urine pH 8.5 Urine Specific [place] 1.015 Urine Protein Negative mg/dL (NEG-TRACE) Urine Glucose (UA) Negative mg/dL (NEG) Urine Ketones (Stick) Negative mg/dL (NEG) Urine Blood Negative (NEG) Urine Nitrite Negative (NEG) Urine Bilirubin Negative (NEG) Urine Urobilinogen Dipstick 1.0 mg/dL (0.2 mg/dL) Urine Leukocyte Esterase Negative (NEG) Urine RBC Occ /HPF (0-2) Urine WBC 1-4 /HPF (0-4) Urine Squamous Epithelial Cells Many /LPF Urine Bacteria Few /HPF (0-FEW) Urine Opiates Screen Pos (NEG) Urine Methadone Screen Neg (NEG) Urine Barbiturates Neg (NEG) Urine Phencyclidine Screen Neg (NEG) Urine Amphetamine/Methamphetamine Neg (NEG) Urine Benzodiazepines Screen Neg (NEG) Urine Cocaine Screen Neg (NEG) Urine Cannabinoids Screen Neg (NEG) Urine Ethyl Alcohol Neg (NEG) Laboratory Tests Test 08/13/17 08:25 08/13/17 08:55 08/13/17 09:18 White Blood Count 5.6 x10^3/uL (4.0-11.0) Red Blood Count 3.58 x10^6/uL (3.50-5.40) Hemoglobin 10.3 g/dL (12.0-15.5) Hematocrit 31.4 % (36.0-47.0) Mean Corpuscular Volume 88 fL (79-100) Mean Corpuscular Hemoglobin 29 pg (25-35) Mean Corpuscular Hemoglobin Concent 33 g/dL (31-37) Red Cell Distribution Width 18.0 % (11.5-14.5) Platelet Count 336 x10^3/uL (140-400) Neutrophils (%) (Auto) 82 % (31-73) Lymphocytes (%) (Auto) 2 % (24-48) Monocytes (%) (Auto) 13 % (0-9) Eosinophils (%) (Auto) 3 % (0-3) Basophils (%) (Auto) 0 % (0-3) Neutrophils # (Auto) 4.6 x10^3uL (1.8-7.7) Lymphocytes # (Auto) 0.1 x10^3/uL (1.0-4.8) Monocytes # (Auto) 0.8 x10^3/uL (0.0-1.1) Eosinophils # (Auto) 0.1 x10^3/uL (0.0-0.7) Basophils # (Auto) 0.0 x10^3/uL (0.0-0.2) Segmented Neutrophils % 85 % (35-66) Lymphocytes % 1 % (24-48) Monocytes % 9 % (0-10) Eosinophils % 2 % (0-5) Basophils % 3 % (0-3) Platelet Estimate Adequate (ADEQUATE) Anisocytosis Present Prothrombin Time 13.3 SEC (11.7-14.0) Prothromb Time International Ratio 1.1 (0.8-1.1) Sodium Level 138 mmol/L (136-145) Potassium Level 3.8 mmol/L (3.5-5.1) Chloride Level 101 mmol/L (98-107) Carbon Dioxide Level 34 mmol/L (21-32) Anion Gap 3 (6-14) Blood Urea Nitrogen 12 mg/dL (7-20) Creatinine 0.9 mg/dL (0.6-1.0) Estimated GFR (Cockcroft-Gault) 64.3 BUN/Creatinine Ratio 13 (6-20) Glucose Level 102 mg/dL (70-99) Calcium Level 8.4 mg/dL (8.5-10.1) Magnesium Level 2.0 mg/dL (1.8-2.4) Total Bilirubin 1.4 mg/dL (0.2-1.0) Aspartate Amino Transf (AST/SGOT) 23 U/L (15-37) Alanine Aminotransferase (ALT/SGPT) 33 U/L (14-59) Alkaline Phosphatase 72 U/L (46-116) Creatine Kinase 46 U/L (26-192) Creatine Kinase MB (Mass) 1.2 ng/mL (0.0-3.6) Creatine Kinase MB Relative Index % (0-4) Troponin I Quantitative 0.034 ng/mL (0.000-0.055) AX-Fhz-P-Type Natriuretic Peptide 9919 pg/mL (0-124) Total Protein 6.8 g/dL (6.4-8.2) Albumin 2.7 g/dL (3.4-5.0) Albumin/Globulin Ratio 0.7 (1.0-1.7) Thyroid Stimulating Hormone (TSH) 1.163 uIU/mL (0.358-3.74) Urine Collection Type Void Urine Color Yellow Urine Clarity Clear Urine pH 8.5 Urine Specific [place] 1.015 Urine Protein Negative mg/dL (NEG-TRACE) Urine Glucose (UA) Negative mg/dL (NEG) Urine Ketones (Stick) Negative mg/dL (NEG) Urine Blood Negative (NEG) Urine Nitrite Negative (NEG) Urine Bilirubin Negative (NEG) Urine Urobilinogen Dipstick 1.0 mg/dL (0.2 mg/dL) Urine Leukocyte Esterase Negative (NEG) Urine RBC Occ /HPF (0-2) Urine WBC 1-4 /HPF (0-4) Urine Squamous Epithelial Cells Many /LPF Urine Bacteria Few /HPF (0-FEW) Urine Opiates Screen Pos (NEG) Urine Methadone Screen Neg (NEG) Urine Barbiturates Neg (NEG) Urine Phencyclidine Screen Neg (NEG) Urine Amphetamine/Methamphetamine Neg (NEG) Urine Benzodiazepines Screen Neg (NEG) Urine Cocaine Screen Neg (NEG) Urine Cannabinoids Screen Neg (NEG) Urine Ethyl Alcohol Neg (NEG) VTE Prophylaxis Ordered VTE Prophylaxis Devices: Yes VTE Pharmacological Prophylaxi: Yes Assessment/Plan Assessment/Plan 1/ Left leg cellulitis 2. HOmeless 3. Severe depression with SI 4. Mantle cell lymphoma involving the left axillary lymph nodes The lymphadenopathy has progressed between 05/2017 to 07/2017. 5 morbid obesity, BMI 56 6. chronic systolic CHF, ejection fraction of only 20-25%. 7. HTn, poor control, PLAN: Admit 1:1 PAT assessment SW for homelessness and PAT Diurese IV lasix Agree with IV clinda BC drawn at ER? Check ESR Wound care monitor lytes while diuresing Rest of home meds to continue She admits not taking her home lasix she was dcd with She is getting chemo and has a Rt angie cath Might need heme onc?? unsure of status chemo- if she needs it while in house? PT/OT Elevate legs Seen at ER Compliance deeply encouraged, signif time MYLES RIVERO MD Aug 13, 2017 13:07
[2017-08-13] MEDS ORDERED: ALBUTEROL SULFATE 2.5 MG/3 ML NEBU. NEB PRN (13:15)
--- NOTE | 2017-08-13 13:26 | PDOC ---
CARDIO Progress Notes Date and Time Date of Service 08/13/17 Time of Evaluation 1215 Subjective Subjective: No shortness of breath, No Palpitations, Other (c/o mild cental chest pressure) Vitals Vitals Vital Signs Date Time Temp Pulse Resp B/P (MAP) Pulse Ox O2 Delivery O2 Flow Rate FiO2 08/13/17 12:48 97 08/13/17 11:09 107 20 143/71 (95) Room Air 08/13/17 07:48 98.0 98.0 Weight Weight [ ] Input and Output Intake and Output Intake and Output 08/14/17 07:00 Intake Total 50 ml Output Total 200 ml Balance -150 ml Intake IV Total 50 ml Output Urine Total 200 ml Laboratory Labs Laboratory Tests Test 08/13/17 08:25 08/13/17 08:55 08/13/17 09:18 White Blood Count 5.6 x10^3/uL (4.0-11.0) Red Blood Count 3.58 x10^6/uL (3.50-5.40) Hemoglobin 10.3 g/dL (12.0-15.5) Hematocrit 31.4 % (36.0-47.0) Mean Corpuscular Volume 88 fL (79-100) Mean Corpuscular Hemoglobin 29 pg (25-35) Mean Corpuscular Hemoglobin Concent 33 g/dL (31-37) Red Cell Distribution Width 18.0 % (11.5-14.5) Platelet Count 336 x10^3/uL (140-400) Neutrophils (%) (Auto) 82 % (31-73) Lymphocytes (%) (Auto) 2 % (24-48) Monocytes (%) (Auto) 13 % (0-9) Eosinophils (%) (Auto) 3 % (0-3) Basophils (%) (Auto) 0 % (0-3) Neutrophils # (Auto) 4.6 x10^3uL (1.8-7.7) Lymphocytes # (Auto) 0.1 x10^3/uL (1.0-4.8) Monocytes # (Auto) 0.8 x10^3/uL (0.0-1.1) Eosinophils # (Auto) 0.1 x10^3/uL (0.0-0.7) Basophils # (Auto) 0.0 x10^3/uL (0.0-0.2) Segmented Neutrophils % 85 % (35-66) Lymphocytes % 1 % (24-48) Monocytes % 9 % (0-10) Eosinophils % 2 % (0-5) Basophils % 3 % (0-3) Platelet Estimate Adequate (ADEQUATE) Anisocytosis Present Prothrombin Time 13.3 SEC (11.7-14.0) Prothromb Time International Ratio 1.1 (0.8-1.1) Sodium Level 138 mmol/L (136-145) Potassium Level 3.8 mmol/L (3.5-5.1) Chloride Level 101 mmol/L (98-107) Carbon Dioxide Level 34 mmol/L (21-32) Anion Gap 3 (6-14) Blood Urea Nitrogen 12 mg/dL (7-20) Creatinine 0.9 mg/dL (0.6-1.0) Estimated GFR (Cockcroft-Gault) 64.3 BUN/Creatinine Ratio 13 (6-20) Glucose Level 102 mg/dL (70-99) Calcium Level 8.4 mg/dL (8.5-10.1) Magnesium Level 2.0 mg/dL (1.8-2.4) Total Bilirubin 1.4 mg/dL (0.2-1.0) Aspartate Amino Transf (AST/SGOT) 23 U/L (15-37) Alanine Aminotransferase (ALT/SGPT) 33 U/L (14-59) Alkaline Phosphatase 72 U/L (46-116) Creatine Kinase 46 U/L (26-192) Creatine Kinase MB (Mass) 1.2 ng/mL (0.0-3.6) Creatine Kinase MB Relative Index % (0-4) Troponin I Quantitative 0.034 ng/mL (0.000-0.055) IH-Fbk-A-Type Natriuretic Peptide 9919 pg/mL (0-124) Total Protein 6.8 g/dL (6.4-8.2) Albumin 2.7 g/dL (3.4-5.0) Albumin/Globulin Ratio 0.7 (1.0-1.7) Thyroid Stimulating Hormone (TSH) 1.163 uIU/mL (0.358-3.74) Urine Collection Type Void Urine Color Yellow Urine Clarity Clear Urine pH 8.5 Urine Specific [place] 1.015 Urine Protein Negative mg/dL (NEG-TRACE) Urine Glucose (UA) Negative mg/dL (NEG) Urine Ketones (Stick) Negative mg/dL (NEG) Urine Blood Negative (NEG) Urine Nitrite Negative (NEG) Urine Bilirubin Negative (NEG) Urine Urobilinogen Dipstick 1.0 mg/dL (0.2 mg/dL) Urine Leukocyte Esterase Negative (NEG) Urine RBC Occ /HPF (0-2) Urine WBC 1-4 /HPF (0-4) Urine Squamous Epithelial Cells Many /LPF Urine Bacteria Few /HPF (0-FEW) Urine Opiates Screen Pos (NEG) Urine Methadone Screen Neg (NEG) Urine Barbiturates Neg (NEG) Urine Phencyclidine Screen Neg (NEG) Urine Amphetamine/Methamphetamine Neg (NEG) Urine Benzodiazepines Screen Neg (NEG) Urine Cocaine Screen Neg (NEG) Urine Cannabinoids Screen Neg (NEG) Urine Ethyl Alcohol Neg (NEG) Physical Exam HEENT: Neck Supple W Full Motion Chest: Symmetric LUNGS: Other (diminished bases ) Heart: S1S2, RRR, no murmurs Abdomen: Soft N/T, Other (obese ) Extremities: Other (2+ bilateral LE edema. LLE erythema) Neurology: alert, oriented, follow commands, other (tearful) Assessment Assessment Continuum of care Please see consult 07/30/17 at [facility] for full details. This is a 57 yo female, with a history of NICM and newly diagnosed with cancer who is well known to use from previous hospitalizations, who presented with complaints of feeling anxious and chest pain. Patient was discharge home on Thursday from lengthy hospitalization. Found out she was homeless and ended up going to a homeless jail. Hasn't been able to sleep much and has been very anxious and tearful. Yesterday, developed chest chest pain. Describes as pressure. Worsened by "getting worked up." Feels like she is having panic attacks. Associated with shortness of breath. Denies any dizziness, diaphoresis , palpitations, or nausea/vomiting. Reports that she was not able to get her lasix prescription filled. Assessment 1. Chest pain; troponin negative. Most probably anxiety related. 2. Mild acute on chronic systolic heart failure with NICM 20-25% 3. Hypertension : controlled 4. Left LE cellulitis 5. Mantle cell lymphoma 5. Depression/anxiety; treatment as per IM Recommendations 1. Resume home BB and ACEi 2. Mild diuresis with monitoring of renal function 3. No further ischemic workup necessary at this time for chest pain as recent cath showed no significant obstructive disease as noted below 4. Continue with Hemonc treatment plan. 5. Supportive care DATE: 04/17/16 1723 CORONARY ANGIOGRAPHY: LM is a large caliber vessel with normal angiographic appearance. LAD is a large caliber vessel with mild luminal irregularities. LCx is a moderate caliber non-dominant vessel with normal angiographic appearance. OM1 is a moderate to large caliber vessel with normal angiographic appearance. RCA is a large caliber dominant vessel with proximal 30% and a distal 50% stenosis. RPDA and RPL are moderate caliber vessels with normal angiographic appearance. Conclusion 1. Elevated left ventricular filling pressure. 2. Severe LV dysfunction. EF 30%. 3. No significant obstructive coronary disease. Recommendations Aggressive Medical Therapy DARIO CARTWRIGHT APRN Aug 13, 2017 13:26
[2017-08-13] MEDS: DOCUSATE SODIUM 100 MG CAPSULE. PO SCH (13:54)
[2017-08-13] MEDS: METOPROLOL SUCC 24HR ER 25 MG TAB.ER.24H. PO SCH (13:54)
[2017-08-13] MEDS: ALLOPURINOL 100 MG TABLET. PO SCH (13:54)
[2017-08-13] MEDS: FUROSEMIDE 40 MG/4 ML VIAL. IVP SCH (13:55)
[2017-08-13] MEDS: FUROSEMIDE 40 MG TABLET. PO SCH (13:55)
[2017-08-13] MEDS: LISINOPRIL 5 MG TABLET. PO SCH (13:55)
[2017-08-13 15:02] VITALS: BP 143/79
[2017-08-13] MEDS: oxyCODONE/APAP 5/325 1 TAB TABLET PO PRN (16:14)
[2017-08-13 19:04] VITALS: BP 104/60
[2017-08-13] MEDS: CLINDAMYCIN 900MG PREMIX 50 ML IV SCH (22:18)
[2017-08-13 22:48] VITALS: BP 144/85
[2017-08-14 02:32] VITALS: BP 124/78
[2017-08-14 04:47] LABS: BASO % 0 % (0-3); EOS % 5 % (0-3); HEMOGLOBIN 9.9 g/dL (12.0-15.5); LYMPH # 0.1 x10^3/uL (1.0-4.8); LYMPH % 3 % (24-48); MEAN CORPUSCULAR HEMOGLOBIN 29 pg (25-35); MEAN CORPUSCULAR HGB CONC 32 g/dL (31-37); MEAN CORPUSCULAR VOLUME 90 fL (79-100); MONO % 17 % (0-9); NEUT % 74 % (31-73); PLATELET COUNT 242 x10^3/uL (140-400); RED BLOOD COUNT 3.43 x10^6/uL (3.50-5.40); RED CELL DISTRIBUTION WIDTH 17.6 % (11.5-14.5); WHITE BLOOD COUNT 4.8 x10^3/uL (4.0-11.0)
[2017-08-14 05:07] LABS: ALBUMIN 2.6 g/dL (3.4-5.0); ALBUMIN/GLOBULIN RATIO 0.6 (1.0-1.7); CALCIUM 8.5 mg/dL (8.5-10.1); GFR 56.9; POTASSIUM 3.9 mmol/L (3.5-5.1); TOTAL BILIRUBIN 1.3 mg/dL (0.2-1.0); TOTAL PROTEIN 6.7 g/dL (6.4-8.2)
[2017-08-14] MEDS: CLINDAMYCIN 900MG PREMIX 50 ML IV SCH ×2 (06:30→14:00)
[2017-08-14 06:48] VITALS: BP 146/86
[2017-08-14] MEDS: FUROSEMIDE 40 MG TABLET. PO SCH ×2 (08:36→14:46)
[2017-08-14] MEDS: POLYETHYLENE GLYCOL 3350 17 GM PACKET. PO SCH (08:51)
[2017-08-14] MEDS: FUROSEMIDE 40 MG/4 ML VIAL. IVP SCH (08:52)
[2017-08-14] MEDS: oxyCODONE/APAP 5/325 1 TAB TABLET PO PRN ×3 (08:52→20:23)
[2017-08-14] MEDS: ALLOPURINOL 100 MG TABLET. PO SCH (08:52)
[2017-08-14] MEDS: POTASSIUM CHLORIDE 20 MEQ TABLET.ER. PO SCH (08:53)
[2017-08-14] MEDS: LISINOPRIL 5 MG TABLET. PO SCH (08:53)
[2017-08-14] MEDS: METOPROLOL SUCC 24HR ER 25 MG TAB.ER.24H. PO SCH (08:53)
[2017-08-14] MEDS: DOCUSATE SODIUM 100 MG CAPSULE. PO SCH (08:53)
[2017-08-14] MEDS: NYSTATIN TOPICAL POWDER 15GM BOTTLE. TP SCH ×2 (08:54→20:23)
--- NOTE | 2017-08-14 09:34 | PDOC ---
PROGRESS NOTES Chief Complaint Chief Complaint 0. Suicidal ideation sec to homelessness and multiple health issues 1. 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 The lymphadenopathy has progressed between 05/2017 to 07/2017. 2. morbid obesity, BMI 56 3. acute on chronic systolic CHF, ejection fraction of only 20-25%. 4. HTn, poor control, had not been treated 5. anxiety and depression, suicidal intent here for 3 days. 6. hyponatremia and transaminitis from CHF History of Present Illness History of Present Illness She is homeless, left leg is swolllen with one good size blister./bullae that seems about to burst, no open wounds, left leg is red, tender to touch, hot, swollen, She cries, she admits to SI, getting any sharp objects to end it all as she does not have any support and does not see any purpose in her life, No prev attempts of Suicide, When I asked her, she would not want to be involuntarily committed, also does not [facility] to [facility] back to [facility],. She is back here bec the homeless [facility] could only take her for 3 days, She claims she has friends? that she can go to, Friends know about her SI, Both parents and only brother is , no kids, Vitals Vitals Vital Signs Date Time Temp Pulse Resp B/P (MAP) Pulse Ox O2 Delivery O2 Flow Rate FiO2 08/14/17 08:53 79 146/86 08/14/17 08:52 97 Room Air 08/14/17 06:48 97.7 20 97.7 Physical Exam General: Alert, Oriented X3, No acute distress, Other (crying) Heart: Regular rate, Normal S1, Normal S2 Lungs: Clear Abdomen: Normal bowel sounds, Soft, Other (obese, no guarding no rebound non tender, NABS) Extremities: No clubbing, No cyanosis, Other (left leg edema with redness on dorsal side, 1 signif size bullae/vesicle, tender to exam) Skin: No rashes, No breakdown Labs LABS Laboratory Tests Test 08/14/17 04:31 White Blood Count 4.8 x10^3/uL (4.0-11.0) Red Blood Count 3.43 x10^6/uL (3.50-5.40) Hemoglobin 9.9 g/dL (12.0-15.5) Hematocrit 31.0 % (36.0-47.0) Mean Corpuscular Volume 90 fL (79-100) Mean Corpuscular Hemoglobin 29 pg (25-35) Mean Corpuscular Hemoglobin Concent 32 g/dL (31-37) Red Cell Distribution Width 17.6 % (11.5-14.5) Platelet Count 242 x10^3/uL (140-400) Neutrophils (%) (Auto) 74 % (31-73) Lymphocytes (%) (Auto) 3 % (24-48) Monocytes (%) (Auto) 17 % (0-9) Eosinophils (%) (Auto) 5 % (0-3) Basophils (%) (Auto) 0 % (0-3) Neutrophils # (Auto) 3.6 x10^3uL (1.8-7.7) Lymphocytes # (Auto) 0.1 x10^3/uL (1.0-4.8) Monocytes # (Auto) 0.8 x10^3/uL (0.0-1.1) Eosinophils # (Auto) 0.3 x10^3/uL (0.0-0.7) Basophils # (Auto) 0.0 x10^3/uL (0.0-0.2) Sodium Level 140 mmol/L (136-145) Potassium Level 3.9 mmol/L (3.5-5.1) Chloride Level 102 mmol/L (98-107) Carbon Dioxide Level 34 mmol/L (21-32) Anion Gap 4 (6-14) Blood Urea Nitrogen 13 mg/dL (7-20) Creatinine 1.0 mg/dL (0.6-1.0) Estimated GFR (Cockcroft-Gault) 56.9 BUN/Creatinine Ratio 13 (6-20) Glucose Level 92 mg/dL (70-99) Calcium Level 8.5 mg/dL (8.5-10.1) Total Bilirubin 1.3 mg/dL (0.2-1.0) Aspartate Amino Transf (AST/SGOT) 22 U/L (15-37) Alanine Aminotransferase (ALT/SGPT) 27 U/L (14-59) Alkaline Phosphatase 74 U/L (46-116) Troponin I Quantitative 0.019 ng/mL (0.000-0.055) Total Protein 6.7 g/dL (6.4-8.2) Albumin 2.6 g/dL (3.4-5.0) Albumin/Globulin Ratio 0.6 (1.0-1.7) Review of Systems Review of Systems co depression co weakness Assessment and Plan Assessmemt and Plan 0. Suicidal ideation 1. 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 The lymphadenopathy has progressed between 05/2017 to 07/2017. 2. morbid obesity, BMI 56 3. acute on chronic systolic CHF, ejection fraction of only 20-25%. 4. HTn, poor control, had not been treated 5. anxiety and depression, suicidal intent here for 3 days. 6. hyponatremia and transaminitis from CHF Plan IV antibx Wound care SS consult Labs Home meds PTOT weight loss Prog guarded Problems: Comment Review of Relevant I have reviewed the following items feli (where applicable) has been applied. Labs Laboratory Tests Test 08/13/17 08:25 08/13/17 08:55 08/13/17 09:18 08/14/17 04:31 White Blood Count 5.6 x10^3/uL (4.0-11.0) 4.8 x10^3/uL (4.0-11.0) Red Blood Count 3.58 x10^6/uL (3.50-5.40) 3.43 x10^6/uL (3.50-5.40) Hemoglobin 10.3 g/dL (12.0-15.5) 9.9 g/dL (12.0-15.5) Hematocrit 31.4 % (36.0-47.0) 31.0 % (36.0-47.0) Mean Corpuscular Volume 88 fL (79-100) 90 fL (79-100) Mean Corpuscular Hemoglobin 29 pg (25-35) 29 pg (25-35) Mean Corpuscular Hemoglobin Concent 33 g/dL (31-37) 32 g/dL (31-37) Red Cell Distribution Width 18.0 % (11.5-14.5) 17.6 % (11.5-14.5) Platelet Count 336 x10^3/uL (140-400) 242 x10^3/uL (140-400) Neutrophils (%) (Auto) 82 % (31-73) 74 % (31-73) Lymphocytes (%) (Auto) 2 % (24-48) 3 % (24-48) Monocytes (%) (Auto) 13 % (0-9) 17 % (0-9) Eosinophils (%) (Auto) 3 % (0-3) 5 % (0-3) Basophils (%) (Auto) 0 % (0-3) 0 % (0-3) Neutrophils # (Auto) 4.6 x10^3uL (1.8-7.7) 3.6 x10^3uL (1.8-7.7) Lymphocytes # (Auto) 0.1 x10^3/uL (1.0-4.8) 0.1 x10^3/uL (1.0-4.8) Monocytes # (Auto) 0.8 x10^3/uL (0.0-1.1) 0.8 x10^3/uL (0.0-1.1) Eosinophils # (Auto) 0.1 x10^3/uL (0.0-0.7) 0.3 x10^3/uL (0.0-0.7) Basophils # (Auto) 0.0 x10^3/uL (0.0-0.2) 0.0 x10^3/uL (0.0-0.2) Segmented Neutrophils % 85 % (35-66) Lymphocytes % 1 % (24-48) Monocytes % 9 % (0-10) Eosinophils % 2 % (0-5) Basophils % 3 % (0-3) Platelet Estimate Adequate (ADEQUATE) Anisocytosis Present Prothrombin Time 13.3 SEC (11.7-14.0) Prothromb Time International Ratio 1.1 (0.8-1.1) Erythrocyte Sedimentation Rate 47 (0-25) Sodium Level 138 mmol/L (136-145) 140 mmol/L (136-145) Potassium Level 3.8 mmol/L (3.5-5.1) 3.9 mmol/L (3.5-5.1) Chloride Level 101 mmol/L (98-107) 102 mmol/L (98-107) Carbon Dioxide Level 34 mmol/L (21-32) 34 mmol/L (21-32) Anion Gap 3 (6-14) 4 (6-14) Blood Urea Nitrogen 12 mg/dL (7-20) 13 mg/dL (7-20) Creatinine 0.9 mg/dL (0.6-1.0) 1.0 mg/dL (0.6-1.0) Estimated GFR (Cockcroft-Gault) 64.3 56.9 BUN/Creatinine Ratio 13 (6-20) 13 (6-20) Glucose Level 102 mg/dL (70-99) 92 mg/dL (70-99) Calcium Level 8.4 mg/dL (8.5-10.1) 8.5 mg/dL (8.5-10.1) Magnesium Level 2.0 mg/dL (1.8-2.4) Total Bilirubin 1.4 mg/dL (0.2-1.0) 1.3 mg/dL (0.2-1.0) Aspartate Amino Transf (AST/SGOT) 23 U/L (15-37) 22 U/L (15-37) Alanine Aminotransferase (ALT/SGPT) 33 U/L (14-59) 27 U/L (14-59) Alkaline Phosphatase 72 U/L (46-116) 74 U/L (46-116) Creatine Kinase 46 U/L (26-192) Creatine Kinase MB (Mass) 1.2 ng/mL (0.0-3.6) Creatine Kinase MB Relative Index % (0-4) Troponin I Quantitative 0.034 ng/mL (0.000-0.055) 0.019 ng/mL (0.000-0.055) WV-Six-K-Type Natriuretic Peptide 9919 pg/mL (0-124) Total Protein 6.8 g/dL (6.4-8.2) 6.7 g/dL (6.4-8.2) Albumin 2.7 g/dL (3.4-5.0) 2.6 g/dL (3.4-5.0) Albumin/Globulin Ratio 0.7 (1.0-1.7) 0.6 (1.0-1.7) Thyroid Stimulating Hormone (TSH) 1.163 uIU/mL (0.358-3.74) Urine Collection Type Void Urine Color Yellow Urine Clarity Clear Urine pH 8.5 Urine Specific [place] 1.015 Urine Protein Negative mg/dL (NEG-TRACE) Urine Glucose (UA) Negative mg/dL (NEG) Urine Ketones (Stick) Negative mg/dL (NEG) Urine Blood Negative (NEG) Urine Nitrite Negative (NEG) Urine Bilirubin Negative (NEG) Urine Urobilinogen Dipstick 1.0 mg/dL (0.2 mg/dL) Urine Leukocyte Esterase Negative (NEG) Urine RBC Occ /HPF (0-2) Urine WBC 1-4 /HPF (0-4) Urine Squamous Epithelial Cells Many /LPF Urine Bacteria Few /HPF (0-FEW) Urine Opiates Screen Pos (NEG) Urine Methadone Screen Neg (NEG) Urine Barbiturates Neg (NEG) Urine Phencyclidine Screen Neg (NEG) Urine Amphetamine/Methamphetamine Neg (NEG) Urine Benzodiazepines Screen Neg (NEG) Urine Cocaine Screen Neg (NEG) Urine Cannabinoids Screen Neg (NEG) Urine Ethyl Alcohol Neg (NEG) Laboratory Tests Test 08/14/17 04:31 White Blood Count 4.8 x10^3/uL (4.0-11.0) Red Blood Count 3.43 x10^6/uL (3.50-5.40) Hemoglobin 9.9 g/dL (12.0-15.5) Hematocrit 31.0 % (36.0-47.0) Mean Corpuscular Volume 90 fL (79-100) Mean Corpuscular Hemoglobin 29 pg (25-35) Mean Corpuscular Hemoglobin Concent 32 g/dL (31-37) Red Cell Distribution Width 17.6 % (11.5-14.5) Platelet Count 242 x10^3/uL (140-400) Neutrophils (%) (Auto) 74 % (31-73) Lymphocytes (%) (Auto) 3 % (24-48) Monocytes (%) (Auto) 17 % (0-9) Eosinophils (%) (Auto) 5 % (0-3) Basophils (%) (Auto) 0 % (0-3) Neutrophils # (Auto) 3.6 x10^3uL (1.8-7.7) Lymphocytes # (Auto) 0.1 x10^3/uL (1.0-4.8) Monocytes # (Auto) 0.8 x10^3/uL (0.0-1.1) Eosinophils # (Auto) 0.3 x10^3/uL (0.0-0.7) Basophils # (Auto) 0.0 x10^3/uL (0.0-0.2) Sodium Level 140 mmol/L (136-145) Potassium Level 3.9 mmol/L (3.5-5.1) Chloride Level 102 mmol/L (98-107) Carbon Dioxide Level 34 mmol/L (21-32) Anion Gap 4 (6-14) Blood Urea Nitrogen 13 mg/dL (7-20) Creatinine 1.0 mg/dL (0.6-1.0) Estimated GFR (Cockcroft-Gault) 56.9 BUN/Creatinine Ratio 13 (6-20) Glucose Level 92 mg/dL (70-99) Calcium Level 8.5 mg/dL (8.5-10.1) Total Bilirubin 1.3 mg/dL (0.2-1.0) Aspartate Amino Transf (AST/SGOT) 22 U/L (15-37) Alanine Aminotransferase (ALT/SGPT) 27 U/L (14-59) Alkaline Phosphatase 74 U/L (46-116) Troponin I Quantitative 0.019 ng/mL (0.000-0.055) Total Protein 6.7 g/dL (6.4-8.2) Albumin 2.6 g/dL (3.4-5.0) Albumin/Globulin Ratio 0.6 (1.0-1.7) Medications Current Medications Aspirin (Anirudh Aspirin) 325 mg 1X ONCE PO Last administered on 08/13/17 09:03 ; Start 08/13/17 at 08:00; Stop 08/13/17 at 08:01; Status DC Morphine Sulfate 4 mg PRN Q2HR PRN IV PAIN GREATER THAN 3/10 Last administered on 08/13/17 09:04; Start 08/13/17 at 08:15 Ondansetron HCl (Zofran) 4 mg PRN Q8HRS PRN IV NAUSEA/VOMITING; Start 08/13/17 at 10:45; Stop 08/13/17 at 12:56; Status DC Morphine Sulfate 4 mg PRN Q2HR PRN IV PAIN; Start 08/13/17 at 10:45; Stop 08/14 at 10:44 Acetaminophen (Tylenol) 650 mg PRN Q4HRS PRN PO FEVER; Start 08/13/17 at 10:45 ; Stop 08/14/17 at 10:44 Nitroglycerin (Nitrostat) 0.4 mg PRN Q5MIN PRN SL CHEST PAIN; Start 08/13/17 at 10:45; Stop 08/14/17 at 10:44 Clindamycin Phosphate 50 ml @ 100 mls/hr Q8HRS IV Last administered on 06:30; Start 08/13/17 at 22:00 Clindamycin Phosphate 50 ml @ 50 mls/hr 1X ONCE IV Last administered on 11:05; Start 08/13/17 at 11:00; Stop 08/13/17 at 11:59; Status DC Ondansetron HCl (Zofran) 4 mg PRN Q6HRS PRN IV NAUSEA/VOMITING; Start 08/13/17 at 13:00; Stop 08/14/17 at 12:59 Acetaminophen (Tylenol) 500 mg PRN Q6HRS PRN PO MILD PAIN / TEMP; Start at 13:00 Allopurinol (Zyloprim) 100 mg DAILY PO Last administered on 08/14/17 08:52; Start 08/13/17 at 13:00 Docusate Sodium (Colace) 100 mg DAILY PO Last administered on 08/14/17 08:53; Start 08/13/17 at 13:00 Furosemide (Lasix) 40 mg DAILY PO Last administered on 08/13/17 13:55; Start 08/13/17 at 13:00 Lisinopril (Prinivil) 5 mg DAILY PO Last administered on 08/14/17 08:53; Start 08/13/17 at 13:00 Metoprolol Succinate (Toprol Xl) 75 mg DAILY PO Last administered on 08/14/17 08:53; Start 08/13/17 at 13:00 Nystatin (Nystop) 1 ria BID TP Last administered on 08/14/17 08:54; Start at 13:00 Oxycodone/ Acetaminophen (Percocet 5/325) 1 tab PRN Q4HRS PRN PO PAIN Last administered on 08/14/17 08:52; Start 08/13/17 at 13:00 Non-Formulary Medication 1 puff PRN Q6HRS PRN INH SHORTNESS OF BREATH; Start at 13:00; Stop 08/13/17 at 13:08; Status DC Furosemide (Lasix) 40 mg DAILY IVP Last administered on 08/14/17 08:52; Start 08/13/17 at 13:00 Albuterol Sulfate (Ventolin Neb Soln) 2.5 mg PRN Q6HRS PRN NEB SHORTNESS OF BREATH; Start 08/13/17 at 13:15 Polyethylene Glycol (miraLAX PACKET) 17 gm DAILY PO Last administered on 08:51; Start 08/14/17 at 09:00 Potassium Chloride (Klor-Con) 20 meq DAILYWBKFT PO Last administered on 08:53; Start 08/14/17 at 08:45 Active Scripts Active Oxycodone-Acetaminophen 5-325 (Oxycodone Hcl/Acetaminophen) 1 Each Tablet 1 Tab PO PRN Q4HRS PRN Colace (Docusate Sodium) 100 Mg Capsule 100 Mg PO DAILY Proair Hfa Inhaler (Albuterol Sulfate) 8.5 Gm Hfa.aer.ad 1 Puff INH PRN Q6HRS PRN Nystop (Nystatin) 60 Gm Powder 1 Ria TP BID 14 Days Lisinopril 5 Mg Tablet 5 Mg PO DAILY Metoprolol Succinate ( Xl ) (Metoprolol Succinate) 25 Mg Tab.er.24h 75 Mg PO DAILY Furosemide 40 Mg Tablet 40 Mg PO DAILY Allopurinol 100 Mg Tablet 100 Mg PO DAILY Vitals/I & O Vital Sign - Last 24 Hours 08/13/17 08/13/17 08/13/17 08/13/17 10:18 11:09 12:25 12:30 Temp 97.9 97.9 Pulse 101 107 97 Resp 20 20 18 B/P (MAP) 139/76 (97) 143/71 (95) 152/82 (105) Pulse Ox 95 97 98 O2 Delivery Room Air Room Air Room Air Room Air 08/13/17 08/13/17 08/13/17 08/13/17 12:48 13:54 13:55 15:02 Temp 97.9 97.9 Pulse 107 107 101 Resp 17 B/P (MAP) 143/71 143/71 143/79 (100) Pulse Ox 97 98 O2 Delivery Room Air 9/2808/13/17 08/13/17 08/13/17 16:14 17:29 19:04 20:00 Temp 97.7 97.7 Pulse 85 Resp 19 B/P (MAP) 104/60 (75) Pulse Ox 98 98 96 O2 Delivery Room Air Room Air Room Air Room Air 08/13/17 08/14/17 08/14/17 08/14/17 22:48 02:32 06:48 08:52 Temp 97.8 97.5 97.7 97.8 97.5 97.7 Pulse 88 83 79 Resp 18 18 20 B/P (MAP) 144/85 (104) 124/78 (93) 146/86 (106) Pulse Ox 100 95 97 97 O2 Delivery Room Air Room Air Room Air Room Air 08/14/17 08/14/17 08:53 08:53 Pulse 79 79 B/P (MAP) 146/86 146/86 Intake and Output 08/14/17 08/14/17 08/15/17 15:00 23:00 07:00 Intake Total 300 ml Balance 300 ml CHUN BIANCHI III DO Aug 14, 2017 09:34
[2017-08-14 10:47] VITALS: BP_SYST 135
--- NOTE | 2017-08-14 12:10 | PDOC ---
CARDIO Progress Notes Date and Time Date of Service 08/14/17 Time of Evaluation 1120 Subjective Subjective: No Chest Pain, No shortness of breath, No Palpitations Vitals Vitals Vital Signs Date Time Temp Pulse Resp B/P (MAP) Pulse Ox O2 Delivery O2 Flow Rate FiO2 08/14/17 10:47 97.7 80 20 135/ 98 97.7 08/14/17 08:52 Room Air Weight Weight [ ] Input and Output Intake and Output Intake and Output 08/15/17 07:00 Intake Total 300 ml Balance 300 ml Intake Oral 300 ml # Voids 1 Laboratory Labs Laboratory Tests Test 08/14/17 04:31 White Blood Count 4.8 x10^3/uL (4.0-11.0) Red Blood Count 3.43 x10^6/uL (3.50-5.40) Hemoglobin 9.9 g/dL (12.0-15.5) Hematocrit 31.0 % (36.0-47.0) Mean Corpuscular Volume 90 fL (79-100) Mean Corpuscular Hemoglobin 29 pg (25-35) Mean Corpuscular Hemoglobin Concent 32 g/dL (31-37) Red Cell Distribution Width 17.6 % (11.5-14.5) Platelet Count 242 x10^3/uL (140-400) Neutrophils (%) (Auto) 74 % (31-73) Lymphocytes (%) (Auto) 3 % (24-48) Monocytes (%) (Auto) 17 % (0-9) Eosinophils (%) (Auto) 5 % (0-3) Basophils (%) (Auto) 0 % (0-3) Neutrophils # (Auto) 3.6 x10^3uL (1.8-7.7) Lymphocytes # (Auto) 0.1 x10^3/uL (1.0-4.8) Monocytes # (Auto) 0.8 x10^3/uL (0.0-1.1) Eosinophils # (Auto) 0.3 x10^3/uL (0.0-0.7) Basophils # (Auto) 0.0 x10^3/uL (0.0-0.2) Sodium Level 140 mmol/L (136-145) Potassium Level 3.9 mmol/L (3.5-5.1) Chloride Level 102 mmol/L (98-107) Carbon Dioxide Level 34 mmol/L (21-32) Anion Gap 4 (6-14) Blood Urea Nitrogen 13 mg/dL (7-20) Creatinine 1.0 mg/dL (0.6-1.0) Estimated GFR (Cockcroft-Gault) 56.9 BUN/Creatinine Ratio 13 (6-20) Glucose Level 92 mg/dL (70-99) Calcium Level 8.5 mg/dL (8.5-10.1) Total Bilirubin 1.3 mg/dL (0.2-1.0) Aspartate Amino Transf (AST/SGOT) 22 U/L (15-37) Alanine Aminotransferase (ALT/SGPT) 27 U/L (14-59) Alkaline Phosphatase 74 U/L (46-116) Troponin I Quantitative 0.019 ng/mL (0.000-0.055) Total Protein 6.7 g/dL (6.4-8.2) Albumin 2.6 g/dL (3.4-5.0) Albumin/Globulin Ratio 0.6 (1.0-1.7) Physical Exam HEENT: Neck Supple W Full Motion Chest: Symmetric LUNGS: Other (diminished bases ) Heart: S1S2, RRR, no murmurs Abdomen: Soft N/T, Other (obese ) Extremities: Other (2+ bilateral LE edema. LLE erythema with blister) Neurology: alert, oriented, follow commands, other (tearful) Assessment Assessment 1. Chest pain, noncardiac 2. Mild acute on chronic systolic heart failure with NICM 20-25% 3. Hypertension 4. Left LE cellulitis 5. Mantle cell lymphoma 5. Depression/anxiety with DI ideations Recommendations Continue optimization; convert lasix to oral. 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 Continue with Hemonc treatment plan. DARIO CARTWRIGHT APRN Aug 14, 2017 12:10
--- NOTE | 2017-08-14 14:05 | PDOC2 ---
CONSULT Date of Consult Date of Consult DATE: 08/14/17 TIME: 13:55 Past Medical History Cardiovascular: CHF, HTN, Hyperlipidemia Pulmonary: Asthma, COPD, Other Psych: Anxiety Past Surgical History Past Surgical History: Other Family History Family History: Coronary Artery Disease Social History No ALCOHOL: none Drugs: None Current Medications Current Medications Current Medications Aspirin (Anirudh Aspirin) 325 mg 1X ONCE PO Last administered on 08/13/17 09:03 ; Start 08/13/17 at 08:00; Stop 08/13/17 at 08:01; Status DC Morphine Sulfate 4 mg PRN Q2HR PRN IV PAIN GREATER THAN 3/10 Last administered on 08/13/17 09:04; Start 08/13/17 at 08:15 Ondansetron HCl (Zofran) 4 mg PRN Q8HRS PRN IV NAUSEA/VOMITING; Start 08/13/17 at 10:45; Stop 08/13/17 at 12:56; Status DC Morphine Sulfate 4 mg PRN Q2HR PRN IV PAIN; Start 08/13/17 at 10:45; Stop 08/14 at 10:44; Status DC Acetaminophen (Tylenol) 650 mg PRN Q4HRS PRN PO FEVER; Start 08/13/17 at 10:45 ; Stop 08/14/17 at 10:44; Status DC Nitroglycerin (Nitrostat) 0.4 mg PRN Q5MIN PRN SL CHEST PAIN; Start 08/13/17 at 10:45; Stop 08/14/17 at 10:44; Status DC Clindamycin Phosphate 50 ml @ 100 mls/hr Q8HRS IV Last administered on 06:30; Start 08/13/17 at 22:00 Clindamycin Phosphate 50 ml @ 50 mls/hr 1X ONCE IV Last administered on 11:05; Start 08/13/17 at 11:00; Stop 08/13/17 at 11:59; Status DC Ondansetron HCl (Zofran) 4 mg PRN Q6HRS PRN IV NAUSEA/VOMITING; Start 08/13/17 at 13:00; Stop 08/14/17 at 12:59; Status DC Acetaminophen (Tylenol) 500 mg PRN Q6HRS PRN PO MILD PAIN / TEMP; Start at 13:00 Allopurinol (Zyloprim) 100 mg DAILY PO Last administered on 08/14/17 08:52; Start 08/13/17 at 13:00 Docusate Sodium (Colace) 100 mg DAILY PO Last administered on 08/14/17 08:53; Start 08/13/17 at 13:00 Furosemide (Lasix) 40 mg DAILY PO Last administered on 08/13/17 13:55; Start 08/13/17 at 13:00 Lisinopril (Prinivil) 5 mg DAILY PO Last administered on 08/14/17 08:53; Start 08/13/17 at 13:00 Metoprolol Succinate (Toprol Xl) 75 mg DAILY PO Last administered on 08/14/17 08:53; Start 08/13/17 at 13:00 Nystatin (Nystop) 1 alvin BID TP Last administered on 08/14/17 08:54; Start at 13:00 Oxycodone/ Acetaminophen (Percocet 5/325) 1 tab PRN Q4HRS PRN PO PAIN Last administered on 08/14/17 08:52; Start 08/13/17 at 13:00 Non-Formulary Medication 1 puff PRN Q6HRS PRN INH SHORTNESS OF BREATH; Start at 13:00; Stop 08/13/17 at 13:08; Status DC Furosemide (Lasix) 40 mg DAILY IVP Last administered on 08/14/17 08:52; Start 08/13/17 at 13:00 Albuterol Sulfate (Ventolin Neb Soln) 2.5 mg PRN Q6HRS PRN NEB SHORTNESS OF BREATH; Start 08/13/17 at 13:15 Polyethylene Glycol (miraLAX PACKET) 17 gm DAILY PO Last administered on 08:51; Start 08/14/17 at 09:00 Potassium Chloride (Klor-Con) 20 meq DAILYWBKFT PO Last administered on 08:53; Start 08/14/17 at 08:45 Active Scripts Active Oxycodone-Acetaminophen 5-325 (Oxycodone Hcl/Acetaminophen) 1 Each Tablet 1 Tab PO PRN Q4HRS PRN Colace (Docusate Sodium) 100 Mg Capsule 100 Mg PO DAILY Proair Hfa Inhaler (Albuterol Sulfate) 8.5 Gm Hfa.aer.ad 1 Puff INH PRN Q6HRS PRN Nystop (Nystatin) 60 Gm Powder 1 Alvin TP BID 14 Days Lisinopril 5 Mg Tablet 5 Mg PO DAILY Metoprolol Succinate ( Xl ) (Metoprolol Succinate) 25 Mg Tab.er.24h 75 Mg PO DAILY Furosemide 40 Mg Tablet 40 Mg PO DAILY Allopurinol 100 Mg Tablet 100 Mg PO DAILY Allergies Allergies: Coded Allergies: Penicillins (Verified Allergy, Intermediate, 07/31/17) TOLERATES ROCEPHIN Vitals VITALS Vital Signs Date Time Temp Pulse Resp B/P (MAP) Pulse Ox O2 Delivery O2 Flow Rate FiO2 08/14/17 10:47 97.7 80 20 135/ 98 97.7 08/14/17 08:52 Room Air Labs Labs Laboratory Tests Test 08/13/17 08:25 08/13/17 08:55 08/13/17 09:18 08/14/17 04:31 White Blood Count 5.6 x10^3/uL (4.0-11.0) 4.8 x10^3/uL (4.0-11.0) Red Blood Count 3.58 x10^6/uL (3.50-5.40) 3.43 x10^6/uL (3.50-5.40) Hemoglobin 10.3 g/dL (12.0-15.5) 9.9 g/dL (12.0-15.5) Hematocrit 31.4 % (36.0-47.0) 31.0 % (36.0-47.0) Mean Corpuscular Volume 88 fL (79-100) 90 fL (79-100) Mean Corpuscular Hemoglobin 29 pg (25-35) 29 pg (25-35) Mean Corpuscular Hemoglobin Concent 33 g/dL (31-37) 32 g/dL (31-37) Red Cell Distribution Width 18.0 % (11.5-14.5) 17.6 % (11.5-14.5) Platelet Count 336 x10^3/uL (140-400) 242 x10^3/uL (140-400) Neutrophils (%) (Auto) 82 % (31-73) 74 % (31-73) Lymphocytes (%) (Auto) 2 % (24-48) 3 % (24-48) Monocytes (%) (Auto) 13 % (0-9) 17 % (0-9) Eosinophils (%) (Auto) 3 % (0-3) 5 % (0-3) Basophils (%) (Auto) 0 % (0-3) 0 % (0-3) Neutrophils # (Auto) 4.6 x10^3uL (1.8-7.7) 3.6 x10^3uL (1.8-7.7) Lymphocytes # (Auto) 0.1 x10^3/uL (1.0-4.8) 0.1 x10^3/uL (1.0-4.8) Monocytes # (Auto) 0.8 x10^3/uL (0.0-1.1) 0.8 x10^3/uL (0.0-1.1) Eosinophils # (Auto) 0.1 x10^3/uL (0.0-0.7) 0.3 x10^3/uL (0.0-0.7) Basophils # (Auto) 0.0 x10^3/uL (0.0-0.2) 0.0 x10^3/uL (0.0-0.2) Segmented Neutrophils % 85 % (35-66) Lymphocytes % 1 % (24-48) Monocytes % 9 % (0-10) Eosinophils % 2 % (0-5) Basophils % 3 % (0-3) Platelet Estimate Adequate (ADEQUATE) Anisocytosis Present Prothrombin Time 13.3 SEC (11.7-14.0) Prothromb Time International Ratio 1.1 (0.8-1.1) Erythrocyte Sedimentation Rate 47 (0-25) Sodium Level 138 mmol/L (136-145) 140 mmol/L (136-145) Potassium Level 3.8 mmol/L (3.5-5.1) 3.9 mmol/L (3.5-5.1) Chloride Level 101 mmol/L (98-107) 102 mmol/L (98-107) Carbon Dioxide Level 34 mmol/L (21-32) 34 mmol/L (21-32) Anion Gap 3 (6-14) 4 (6-14) Blood Urea Nitrogen 12 mg/dL (7-20) 13 mg/dL (7-20) Creatinine 0.9 mg/dL (0.6-1.0) 1.0 mg/dL (0.6-1.0) Estimated GFR (Cockcroft-Gault) 64.3 56.9 BUN/Creatinine Ratio 13 (6-20) 13 (6-20) Glucose Level 102 mg/dL (70-99) 92 mg/dL (70-99) Calcium Level 8.4 mg/dL (8.5-10.1) 8.5 mg/dL (8.5-10.1) Magnesium Level 2.0 mg/dL (1.8-2.4) Total Bilirubin 1.4 mg/dL (0.2-1.0) 1.3 mg/dL (0.2-1.0) Aspartate Amino Transf (AST/SGOT) 23 U/L (15-37) 22 U/L (15-37) Alanine Aminotransferase (ALT/SGPT) 33 U/L (14-59) 27 U/L (14-59) Alkaline Phosphatase 72 U/L (46-116) 74 U/L (46-116) Creatine Kinase 46 U/L (26-192) Creatine Kinase MB (Mass) 1.2 ng/mL (0.0-3.6) Creatine Kinase MB Relative Index % (0-4) Troponin I Quantitative 0.034 ng/mL (0.000-0.055) 0.019 ng/mL (0.000-0.055) RV-Ynu-V-Type Natriuretic Peptide 9919 pg/mL (0-124) Total Protein 6.8 g/dL (6.4-8.2) 6.7 g/dL (6.4-8.2) Albumin 2.7 g/dL (3.4-5.0) 2.6 g/dL (3.4-5.0) Albumin/Globulin Ratio 0.7 (1.0-1.7) 0.6 (1.0-1.7) Thyroid Stimulating Hormone (TSH) 1.163 uIU/mL (0.358-3.74) Urine Collection Type Void Urine Color Yellow Urine Clarity Clear Urine pH 8.5 Urine Specific [place] 1.015 Urine Protein Negative mg/dL (NEG-TRACE) Urine Glucose (UA) Negative mg/dL (NEG) Urine Ketones (Stick) Negative mg/dL (NEG) Urine Blood Negative (NEG) Urine Nitrite Negative (NEG) Urine Bilirubin Negative (NEG) Urine Urobilinogen Dipstick 1.0 mg/dL (0.2 mg/dL) Urine Leukocyte Esterase Negative (NEG) Urine RBC Occ /HPF (0-2) Urine WBC 1-4 /HPF (0-4) Urine Squamous Epithelial Cells Many /LPF Urine Bacteria Few /HPF (0-FEW) Urine Opiates Screen Pos (NEG) Urine Methadone Screen Neg (NEG) Urine Barbiturates Neg (NEG) Urine Phencyclidine Screen Neg (NEG) Urine Amphetamine/Methamphetamine Neg (NEG) Urine Benzodiazepines Screen Neg (NEG) Urine Cocaine Screen Neg (NEG) Urine Cannabinoids Screen Neg (NEG) Urine Ethyl Alcohol Neg (NEG) Laboratory Tests Test 08/14/17 04:31 White Blood Count 4.8 x10^3/uL (4.0-11.0) Red Blood Count 3.43 x10^6/uL (3.50-5.40) Hemoglobin 9.9 g/dL (12.0-15.5) Hematocrit 31.0 % (36.0-47.0) Mean Corpuscular Volume 90 fL (79-100) Mean Corpuscular Hemoglobin 29 pg (25-35) Mean Corpuscular Hemoglobin Concent 32 g/dL (31-37) Red Cell Distribution Width 17.6 % (11.5-14.5) Platelet Count 242 x10^3/uL (140-400) Neutrophils (%) (Auto) 74 % (31-73) Lymphocytes (%) (Auto) 3 % (24-48) Monocytes (%) (Auto) 17 % (0-9) Eosinophils (%) (Auto) 5 % (0-3) Basophils (%) (Auto) 0 % (0-3) Neutrophils # (Auto) 3.6 x10^3uL (1.8-7.7) Lymphocytes # (Auto) 0.1 x10^3/uL (1.0-4.8) Monocytes # (Auto) 0.8 x10^3/uL (0.0-1.1) Eosinophils # (Auto) 0.3 x10^3/uL (0.0-0.7) Basophils # (Auto) 0.0 x10^3/uL (0.0-0.2) Sodium Level 140 mmol/L (136-145) Potassium Level 3.9 mmol/L (3.5-5.1) Chloride Level 102 mmol/L (98-107) Carbon Dioxide Level 34 mmol/L (21-32) Anion Gap 4 (6-14) Blood Urea Nitrogen 13 mg/dL (7-20) Creatinine 1.0 mg/dL (0.6-1.0) Estimated GFR (Cockcroft-Gault) 56.9 BUN/Creatinine Ratio 13 (6-20) Glucose Level 92 mg/dL (70-99) Calcium Level 8.5 mg/dL (8.5-10.1) Total Bilirubin 1.3 mg/dL (0.2-1.0) Aspartate Amino Transf (AST/SGOT) 22 U/L (15-37) Alanine Aminotransferase (ALT/SGPT) 27 U/L (14-59) Alkaline Phosphatase 74 U/L (46-116) Troponin I Quantitative 0.019 ng/mL (0.000-0.055) Total Protein 6.7 g/dL (6.4-8.2) Albumin 2.6 g/dL (3.4-5.0) Albumin/Globulin Ratio 0.6 (1.0-1.7) Assessment/Plan Assessment/Plan DATE OF CONSULTATION: 08/14/2017 MEDICAL ONCOLOGY CONSULTATION Consultation requested by Dr. Nurys Paiz. REASON FOR CONSULTATION: Mantle cell lymphoma presenting with left axillary lymphadenopathy. HISTORY OF PRESENT ILLNESS: The patient is a 57-year-old female who had presented to [facility] in 05/2017 with worsening edema, abdominal distention and cellulitis of bilateral lower extremities. She has a history of congestive heart failure with very poor ejection fraction of 30% at that time. However, the note from the rate marker from 07/31/2017 reveals that her ejection fraction is 20-25%. She denies loss of weight or loss of appetite. No fevers, chills or night sweats. She underwent a CT angiogram at [facility] in 05/2017 that revealed bilateral lung ground-glass opacities and a 5.4 cm left axillary lymph node in addition to mediastinal lymphadenopathy. Her symptoms of congestive heart failure had improved with diuretics at that time. She was evaluated by Dr. Belle Lemon on 05/26/2017 and biopsy of the left axillary lymph node was recommended. She underwent ultrasound-guided biopsy of the left axillary lymph node on 05/27/2017 and this revealed mantle cell lymphoma with kappa predominant plasmacytosis. Based on the morphology and immunohistochemical staining pattern and flow cytometry, the findings were consistent with involvement by mantle cell lymphoma. 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 Dr. Lemon notified the patient of these results and she did not express interest in chemotherapy at that time. In addition, she did not have any insurance and she did not follow up with Dr. Lemon. She presented to [facility] on 07/30/[address] scan of the chest was performed on 07/28/2017 that revealed marked lymphadenopathy in the left axilla, which has progressed when compared to the previous examination. There are also numerous nodular opacities in the lungs, some of which appear larger when compared to the prior study from 05/2017. She underwent bilateral lower extremity venous Doppler on 07/28/2017 that is negative for DVT. She was started on Rituxan and bendeka 08/06/17. She was admitted 08/13/17 for LLE cellulitis. She is homeless. PAST MEDICAL HISTORY: Congestive heart failure with a left ventricular ejection fraction of 22-25%. Hypertension, hyperlipidemia, asthma, COPD, obstructive sleep apnea, anxiety, chronic pedal edema, history of cellulitis in the lower extremities, obesity, gastroesophageal reflux disease. FAMILY HISTORY: Brother at the age of 47 from myocardial infarction. SOCIAL HISTORY: She has a history of smoking 1 pack of cigarettes per day for 10 years that she quit in 2013. REVIEW OF SYSTEMS: A 14-point review of systems was performed. Pertinent positives are mentioned in the history of present illness. Rest of the system review is negative. PHYSICAL EXAMINATION: GENERAL APPEARANCE: The patient is a 57-year-old female who is obese and in no acute cardiorespiratory distress. VITAL SIGNS: reviewed. HEENT: Head: Atraumatic, normocephalic. Eyes: No icterus. NECK: Supple. CHEST: Bilaterally symmetrical. HEART: S1, S2 normal. ABDOMEN: Soft, nontender. No hepatosplenomegaly. CENTRAL NERVOUS SYSTEM: No focal neurological deficits. LYMPHATICS: No clear lymphadenopathy palpable in the left axilla. MUSCULOSKELETAL: She has evidence of bilateral pedal edema, bilateral chronic skin changes due to chronic edema. LABORATORY DATA: WBC 4.8, hemoglobin 9.9, platelet count 242. IMPRESSION AND PLAN: 1. 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 The lymphadenopathy has progressed between 05/2017 to 07/2017. She had an ultrasound-guided biopsy of the left axillary lymph node on 05/27/2017, which revealed mantle cell lymphoma in addition to kappa predominant plasmacytosis. 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 CT scan of the neck, chest, abdomen and pelvis 24514 reveals axillary, mediastinal and retroperitoneal lymphadenopathy. 14 x 6 mm extraconal mass within the medial right orbit with mass effect on the medial rectus muscle. MRI brain and orbits suggests thus to be a hemangioma. Mantle cell lymphoma prognostic score is 3, which would indicate a 5-yr survival of 60%. s/p port 07/31/17 s/p bone marrow 08/04/17. bone marrow biopsy results pending. She was started on chemotherapy with Rituxan and bendeka 08/06/17. Continue to monitor for toxicities. s/p Cycle 1Day 2 on 08/07/17. Next cycle to begin on 09/03/17. 2. Congestive heart failure with an ejection fraction of 20-25%. Management per cardiology. 3. Anemia - multifactorial - monitor. JEFRY PIZARRO MD Aug 14, 2017 14:05
[2017-08-14 14:41] VITALS: BP 127/58
[2017-08-14] MEDS ORDERED: ONDANSETRON ODT 4 MG TAB.RAPDIS. PO PRN (16:15)
[2017-08-14 19:00] VITALS: BP 140/84
[2017-08-14 23:00] VITALS: BP 142/84
[2017-08-15 02:43] VITALS: BP 142/86
[2017-08-15 07:30] VITALS: BP 134/86
[2017-08-15] MEDS: POTASSIUM CHLORIDE 20 MEQ TABLET.ER. PO SCH (08:00)
[2017-08-15] MEDS: LISINOPRIL 5 MG TABLET. PO SCH (08:59)
[2017-08-15] MEDS: ALLOPURINOL 100 MG TABLET. PO SCH (08:59)
[2017-08-15] MEDS: DOCUSATE SODIUM 100 MG CAPSULE. PO SCH (09:00)
[2017-08-15] MEDS: POLYETHYLENE GLYCOL 3350 17 GM PACKET. PO SCH (09:00)
[2017-08-15] MEDS: FUROSEMIDE 40 MG TABLET. PO SCH ×2 (09:00→14:45)
[2017-08-15] MEDS: METOPROLOL SUCC 24HR ER 25 MG TAB.ER.24H. PO SCH (09:01)
[2017-08-15] MEDS: NYSTATIN TOPICAL POWDER 15GM BOTTLE. TP SCH ×2 (09:02→20:58)
[2017-08-15 11:00] VITALS: BP 125/81
--- NOTE | 2017-08-15 13:01 | PDOC ---
PROGRESS NOTES Chief Complaint Chief Complaint 0. Suicidal ideation sec to homelessness and multiple health issues 1. 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 The lymphadenopathy has progressed between 05/2017 to 07/2017. 2. morbid obesity, BMI 56 3. acute on chronic systolic CHF, ejection fraction of only 20-25%. 4. HTn, poor control, had not been treated 5. anxiety and depression, suicidal intent here for 3 days. 6. hyponatremia and transaminitis from CHF History of Present Illness History of Present Illness Patient awake and reclining in bed with no apparent distress or altered mental status. Nurse present in room for 1:1 monitoring. When asked if she she had anymore thoughts of suicide patient indicated she did not. Patient said her leg felt better. Vitals Vitals Vital Signs Date Time Temp Pulse Resp B/P (MAP) Pulse Ox O2 Delivery O2 Flow Rate FiO2 08/15/17 11:00 97.5 75 16 125/81 (96) 97 Room Air 97.5 Physical Exam Physical Exam Patient awake, alert, oriented. No problems breathing. Skin warm and well perfused. General: Alert, Oriented X3, No acute distress, Other (crying) Heart: Regular rate, Normal S1, Normal S2 Lungs: Clear Abdomen: Normal bowel sounds, Soft, Other (obese, no guarding no rebound non tender, NABS) Extremities: No clubbing, No cyanosis, Other (left leg edema with redness on dorsal side, 1 signif size bullae/vesicle, tender to exam) Skin: Other (Bandage on L leg clean and dry) Review of Systems Review of Systems patient tired and hungry. Assessment and Plan Assessmemt and Plan Assessment: 0. Suicidal ideation sec to homelessness and multiple health issues 1. 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 The lymphadenopathy has progressed between 05/2017 to 07/2017. 2. morbid obesity, BMI 56 3. acute on chronic systolic CHF, ejection fraction of only 20-25%. 4. HTn, poor control, had not been treated 5. anxiety and depression, suicidal intent here for 3 days. 6. hyponatremia and transaminitis from CHF Plan: 1. continue with antibiotics 2. if okay with PAT discontinue 1 to 1 monitoring 3. continue with wound care 4. continue home medications. 5. recheck labs Problems: Comment Review of Relevant I have reviewed the following items feli (where applicable) has been applied. Labs Laboratory Tests Test 08/14/17 04:31 White Blood Count 4.8 x10^3/uL (4.0-11.0) Red Blood Count 3.43 x10^6/uL (3.50-5.40) Hemoglobin 9.9 g/dL (12.0-15.5) Hematocrit 31.0 % (36.0-47.0) Mean Corpuscular Volume 90 fL (79-100) Mean Corpuscular Hemoglobin 29 pg (25-35) Mean Corpuscular Hemoglobin Concent 32 g/dL (31-37) Red Cell Distribution Width 17.6 % (11.5-14.5) Platelet Count 242 x10^3/uL (140-400) Neutrophils (%) (Auto) 74 % (31-73) Lymphocytes (%) (Auto) 3 % (24-48) Monocytes (%) (Auto) 17 % (0-9) Eosinophils (%) (Auto) 5 % (0-3) Basophils (%) (Auto) 0 % (0-3) Neutrophils # (Auto) 3.6 x10^3uL (1.8-7.7) Lymphocytes # (Auto) 0.1 x10^3/uL (1.0-4.8) Monocytes # (Auto) 0.8 x10^3/uL (0.0-1.1) Eosinophils # (Auto) 0.3 x10^3/uL (0.0-0.7) Basophils # (Auto) 0.0 x10^3/uL (0.0-0.2) Sodium Level 140 mmol/L (136-145) Potassium Level 3.9 mmol/L (3.5-5.1) Chloride Level 102 mmol/L (98-107) Carbon Dioxide Level 34 mmol/L (21-32) Anion Gap 4 (6-14) Blood Urea Nitrogen 13 mg/dL (7-20) Creatinine 1.0 mg/dL (0.6-1.0) Estimated GFR (Cockcroft-Gault) 56.9 BUN/Creatinine Ratio 13 (6-20) Glucose Level 92 mg/dL (70-99) Calcium Level 8.5 mg/dL (8.5-10.1) Total Bilirubin 1.3 mg/dL (0.2-1.0) Aspartate Amino Transf (AST/SGOT) 22 U/L (15-37) Alanine Aminotransferase (ALT/SGPT) 27 U/L (14-59) Alkaline Phosphatase 74 U/L (46-116) Troponin I Quantitative 0.019 ng/mL (0.000-0.055) Total Protein 6.7 g/dL (6.4-8.2) Albumin 2.6 g/dL (3.4-5.0) Albumin/Globulin Ratio 0.6 (1.0-1.7) Medications Current Medications Aspirin (Anirudh Aspirin) 325 mg 1X ONCE PO Last administered on 08/13/17 09:03 ; Start 08/13/17 at 08:00; Stop 08/13/17 at 08:01; Status DC Morphine Sulfate 4 mg PRN Q2HR PRN IV PAIN GREATER THAN 3/10 Last administered on 08/13/17 09:04; Start 08/13/17 at 08:15 Ondansetron HCl (Zofran) 4 mg PRN Q8HRS PRN IV NAUSEA/VOMITING; Start 08/13/17 at 10:45; Stop 08/13/17 at 12:56; Status DC Morphine Sulfate 4 mg PRN Q2HR PRN IV PAIN; Start 08/13/17 at 10:45; Stop 08/14 at 10:44; Status DC Acetaminophen (Tylenol) 650 mg PRN Q4HRS PRN PO FEVER; Start 08/13/17 at 10:45 ; Stop 08/14/17 at 10:44; Status DC Nitroglycerin (Nitrostat) 0.4 mg PRN Q5MIN PRN SL CHEST PAIN; Start 08/13/17 at 10:45; Stop 08/14/17 at 10:44; Status DC Clindamycin Phosphate 50 ml @ 100 mls/hr Q8HRS IV Last administered on 06:30; Start 08/13/17 at 22:00; Stop 08/14/17 at 16:06; Status DC Clindamycin Phosphate 50 ml @ 50 mls/hr 1X ONCE IV Last administered on 11:05; Start 08/13/17 at 11:00; Stop 08/13/17 at 11:59; Status DC Ondansetron HCl (Zofran) 4 mg PRN Q6HRS PRN IV NAUSEA/VOMITING; Start 08/13/17 at 13:00; Stop 08/14/17 at 12:59; Status DC Acetaminophen (Tylenol) 500 mg PRN Q6HRS PRN PO MILD PAIN / TEMP; Start at 13:00 Allopurinol (Zyloprim) 100 mg DAILY PO Last administered on 08/15/17 08:59; Start 08/13/17 at 13:00 Docusate Sodium (Colace) 100 mg DAILY PO Last administered on 08/14/17 08:53; Start 08/13/17 at 13:00 Furosemide (Lasix) 40 mg DAILY PO Last administered on 08/13/17 13:55; Start 08/13/17 at 13:00; Stop 08/14/17 at 14:46; Status DC Lisinopril (Prinivil) 5 mg DAILY PO Last administered on 08/15/17 08:59; Start 08/13/17 at 13:00 Metoprolol Succinate (Toprol Xl) 75 mg DAILY PO Last administered on 08/15/17 09:01; Start 08/13/17 at 13:00 Nystatin (Nystop) 1 ria BID TP Last administered on 08/15/17 09:02; Start at 13:00 Oxycodone/ Acetaminophen (Percocet 5/325) 1 tab PRN Q4HRS PRN PO PAIN Last administered on 08/14/17 20:23; Start 08/13/17 at 13:00 Non-Formulary Medication 1 puff PRN Q6HRS PRN INH SHORTNESS OF BREATH; Start at 13:00; Stop 08/13/17 at 13:08; Status DC Furosemide (Lasix) 40 mg DAILY IVP Last administered on 08/14/17 08:52; Start 08/13/17 at 13:00; Stop 08/14/17 at 14:28; Status DC Albuterol Sulfate (Ventolin Neb Soln) 2.5 mg PRN Q6HRS PRN NEB SHORTNESS OF BREATH; Start 08/13/17 at 13:15 Polyethylene Glycol (miraLAX PACKET) 17 gm DAILY PO Last administered on 08:51; Start 08/14/17 at 09:00 Potassium Chloride (Klor-Con) 20 meq DAILYWBKFT PO Last administered on 08:00; Start 08/14/17 at 08:45 Furosemide (Lasix) 40 mg [id number] PO Last administered on 08/15/17 09:00; Start 08/14/17 at 15:00 Levofloxacin (Levaquin) 500 mg DAILY06 PO Last administered on 08/15/17 05:54 ; Start 08/14/17 at 17:00 Ondansetron HCl (Zofran Odt) 4 mg PRN Q6HRS PRN PO NAUSEA/VOMITING Last administered on 08/14/17 17:09; Start 08/14/17 at 16:15 Active Scripts Active Oxycodone-Acetaminophen 5-325 (Oxycodone Hcl/Acetaminophen) 1 Each Tablet 1 Tab PO PRN Q4HRS PRN Colace (Docusate Sodium) 100 Mg Capsule 100 Mg PO DAILY Proair Hfa Inhaler (Albuterol Sulfate) 8.5 Gm Hfa.aer.ad 1 Puff INH PRN Q6HRS PRN Nystop (Nystatin) 60 Gm Powder 1 Ria TP BID 14 Days Lisinopril 5 Mg Tablet 5 Mg PO DAILY Metoprolol Succinate ( Xl ) (Metoprolol Succinate) 25 Mg Tab.er.24h 75 Mg PO DAILY Furosemide 40 Mg Tablet 40 Mg PO DAILY Allopurinol 100 Mg Tablet 100 Mg PO DAILY Vitals/I & O Vital Sign - Last 24 Hours 08/14/17 08/14/17 08/14/17 08/14/17 14:41 14:46 19:00 20:00 Temp 97.7 97.7 97.7 97.7 Pulse 82 77 Resp 20 20 B/P (MAP) 127/58 (81) 140/84 (102) Pulse Ox 95 95 96 O2 Delivery Room Air Room Air Room Air Room Air 08/14/17 08/14/17 08/14/17 08/15/17 20:23 21:23 23:00 02:43 Temp 97.7 97.7 97.7 97.7 Pulse 77 89 Resp 20 20 20 20 B/P (MAP) 142/84 (103) 142/86 (104) Pulse Ox 96 97 98 96 O2 Delivery Room Air Room Air Room Air Room Air 08/15/17 08/15/17 08/15/17 08/15/17 07:30 08:00 08:59 09:01 Temp 98.5 98.5 Pulse 78 78 78 Resp 14 B/P (MAP) 134/86 (102) 134/86 134/86 O2 Delivery Room Air Room Air 08/15/17 11:00 Temp 97.5 97.5 Pulse 75 Resp 16 B/P (MAP) 125/81 (96) Pulse Ox 97 O2 Delivery Room Air CHUN BIANCHI III DO Aug 15, 2017 13:01
[2017-08-15] MEDS: oxyCODONE/APAP 5/325 1 TAB TABLET PO PRN ×2 (14:44→22:13)
[2017-08-15 15:00] VITALS: BP 126/81
[2017-08-15 19:49] VITALS: BP 95/47
[2017-08-15 23:51] VITALS: BP 122/72
[2017-08-16 03:39] VITALS: BP 108/59
[2017-08-16 04:54] LABS: BASO % 1 % (0-3); EOS % 5 % (0-3); HEMATOCRIT 31.1 % (36.0-47.0); HEMOGLOBIN 10.3 g/dL (12.0-15.5); LYMPH # 0.3 x10^3/uL (1.0-4.8); LYMPH % 6 % (24-48); MEAN CORPUSCULAR HEMOGLOBIN 29 pg (25-35); MEAN CORPUSCULAR HGB CONC 33 g/dL (31-37); MEAN CORPUSCULAR VOLUME 89 fL (79-100); MONO % 19 % (0-9); NEUT % 70 % (31-73); PLATELET COUNT 201 x10^3/uL (140-400); RED BLOOD COUNT 3.51 x10^6/uL (3.50-5.40); RED CELL DISTRIBUTION WIDTH 17.8 % (11.5-14.5); WHITE BLOOD COUNT 4.8 x10^3/uL (4.0-11.0)
[2017-08-16] MEDS: oxyCODONE/APAP 5/325 1 TAB TABLET PO PRN ×2 (05:37→11:53)
[2017-08-16 07:00] VITALS: BP 145/88
[2017-08-16] MEDS: POLYETHYLENE GLYCOL 3350 17 GM PACKET. PO SCH (08:17)
[2017-08-16] MEDS: ALLOPURINOL 100 MG TABLET. PO SCH (08:18)
[2017-08-16] MEDS: POTASSIUM CHLORIDE 20 MEQ TABLET.ER. PO SCH (08:18)
[2017-08-16] MEDS: DOCUSATE SODIUM 100 MG CAPSULE. PO SCH (08:18)
[2017-08-16] MEDS: LISINOPRIL 5 MG TABLET. PO SCH (08:18)
[2017-08-16] MEDS: FUROSEMIDE 40 MG TABLET. PO SCH ×2 (08:18→15:32)
[2017-08-16] MEDS: METOPROLOL SUCC 24HR ER 25 MG TAB.ER.24H. PO SCH (08:19)
[2017-08-16] MEDS: NYSTATIN TOPICAL POWDER 15GM BOTTLE. TP SCH ×2 (08:19→21:08)
[2017-08-16 10:59] VITALS: BP 118/73
--- NOTE | 2017-08-16 13:07 | PDOC ---
PROGRESS NOTES Chief Complaint Chief Complaint 0. Suicidal ideation sec to homelessness and multiple health issues 1. 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 The lymphadenopathy has progressed between 05/2017 to 07/2017. 2. morbid obesity, BMI 56 3. acute on chronic systolic CHF, ejection fraction of only 20-25%. 4. HTn, poor control, had not been treated 5. anxiety and depression, suicidal intent here for 3 days. 6. hyponatremia and transaminitis from CHF History of Present Illness History of Present Illness Patient awake and reclining in bed with no apparent distress or altered mental status. Communicated with patient that we were waiting for direction regarding where patient would be discharged and how her post hospitalization care would be managed. Vitals Vitals Vital Signs Date Time Temp Pulse Resp B/P (MAP) Pulse Ox O2 Delivery O2 Flow Rate FiO2 08/16/17 11:53 21 97 Room Air 08/16/17 10:59 98.2 90 118/73 (88) 98.2 Physical Exam Physical Exam Patient awake, alert, oriented. No problems breathing. Skin warm and well perfused. LLE TTP. General: Alert, Oriented X3, No acute distress, Other (crying) Heart: Regular rate, Other (heart sounds distant) Lungs: Clear Abdomen: Normal bowel sounds, Soft, Other (obese, no guarding no rebound non tender, NABS) Extremities: No clubbing, No cyanosis, Other (left leg edema with redness on dorsal side, 1 signif size bullae/vesicle, tender to exam) Skin: Other (Bandage on L leg clean and dry) Labs LABS Laboratory Tests Test 08/16/17 04:10 White Blood Count 4.8 x10^3/uL (4.0-11.0) Red Blood Count 3.51 x10^6/uL (3.50-5.40) Hemoglobin 10.3 g/dL (12.0-15.5) Hematocrit 31.1 % (36.0-47.0) Mean Corpuscular Volume 89 fL (79-100) Mean Corpuscular Hemoglobin 29 pg (25-35) Mean Corpuscular Hemoglobin Concent 33 g/dL (31-37) Red Cell Distribution Width 17.8 % (11.5-14.5) Platelet Count 201 x10^3/uL (140-400) Neutrophils (%) (Auto) 70 % (31-73) Lymphocytes (%) (Auto) 6 % (24-48) Monocytes (%) (Auto) 19 % (0-9) Eosinophils (%) (Auto) 5 % (0-3) Basophils (%) (Auto) 1 % (0-3) Neutrophils # (Auto) 3.4 x10^3uL (1.8-7.7) Lymphocytes # (Auto) 0.3 x10^3/uL (1.0-4.8) Monocytes # (Auto) 0.9 x10^3/uL (0.0-1.1) Eosinophils # (Auto) 0.2 x10^3/uL (0.0-0.7) Basophils # (Auto) 0.0 x10^3/uL (0.0-0.2) Review of Systems Review of Systems Patient tired and hungry. Assessment and Plan Assessmemt and Plan Assessment: 0. Suicidal ideation sec to homelessness and multiple health issues 1. 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 The lymphadenopathy has progressed between 05/2017 to 07/2017. 2. morbid obesity, BMI 56 3. acute on chronic systolic CHF, ejection fraction of only 20-25%. 4. HTn, poor control, had not been treated 5. anxiety and depression, suicidal intent here for 3 days. 6. hyponatremia and transaminitis from CHF Plan: 1. Ordered BMP and CBC 2. Await Social Work input 3. Appreciate hem-onc plan 4. Appreciate cardio plan 5. Continue home meds. Problems: Comment Review of Relevant I have reviewed the following items feli (where applicable) has been applied. Labs Laboratory Tests Test 08/16/17 04:10 White Blood Count 4.8 x10^3/uL (4.0-11.0) Red Blood Count 3.51 x10^6/uL (3.50-5.40) Hemoglobin 10.3 g/dL (12.0-15.5) Hematocrit 31.1 % (36.0-47.0) Mean Corpuscular Volume 89 fL (79-100) Mean Corpuscular Hemoglobin 29 pg (25-35) Mean Corpuscular Hemoglobin Concent 33 g/dL (31-37) Red Cell Distribution Width 17.8 % (11.5-14.5) Platelet Count 201 x10^3/uL (140-400) Neutrophils (%) (Auto) 70 % (31-73) Lymphocytes (%) (Auto) 6 % (24-48) Monocytes (%) (Auto) 19 % (0-9) Eosinophils (%) (Auto) 5 % (0-3) Basophils (%) (Auto) 1 % (0-3) Neutrophils # (Auto) 3.4 x10^3uL (1.8-7.7) Lymphocytes # (Auto) 0.3 x10^3/uL (1.0-4.8) Monocytes # (Auto) 0.9 x10^3/uL (0.0-1.1) Eosinophils # (Auto) 0.2 x10^3/uL (0.0-0.7) Basophils # (Auto) 0.0 x10^3/uL (0.0-0.2) Laboratory Tests Test 08/16/17 04:10 White Blood Count 4.8 x10^3/uL (4.0-11.0) Red Blood Count 3.51 x10^6/uL (3.50-5.40) Hemoglobin 10.3 g/dL (12.0-15.5) Hematocrit 31.1 % (36.0-47.0) Mean Corpuscular Volume 89 fL (79-100) Mean Corpuscular Hemoglobin 29 pg (25-35) Mean Corpuscular Hemoglobin Concent 33 g/dL (31-37) Red Cell Distribution Width 17.8 % (11.5-14.5) Platelet Count 201 x10^3/uL (140-400) Neutrophils (%) (Auto) 70 % (31-73) Lymphocytes (%) (Auto) 6 % (24-48) Monocytes (%) (Auto) 19 % (0-9) Eosinophils (%) (Auto) 5 % (0-3) Basophils (%) (Auto) 1 % (0-3) Neutrophils # (Auto) 3.4 x10^3uL (1.8-7.7) Lymphocytes # (Auto) 0.3 x10^3/uL (1.0-4.8) Monocytes # (Auto) 0.9 x10^3/uL (0.0-1.1) Eosinophils # (Auto) 0.2 x10^3/uL (0.0-0.7) Basophils # (Auto) 0.0 x10^3/uL (0.0-0.2) Medications Current Medications Aspirin (Anirudh Aspirin) 325 mg 1X ONCE PO Last administered on 08/13/17 09:03 ; Start 08/13/17 at 08:00; Stop 08/13/17 at 08:01; Status DC Morphine Sulfate 4 mg PRN Q2HR PRN IV PAIN GREATER THAN 3/10 Last administered on 08/13/17 09:04; Start 08/13/17 at 08:15 Ondansetron HCl (Zofran) 4 mg PRN Q8HRS PRN IV NAUSEA/VOMITING; Start 08/13/17 at 10:45; Stop 08/13/17 at 12:56; Status DC Morphine Sulfate 4 mg PRN Q2HR PRN IV PAIN; Start 08/13/17 at 10:45; Stop 08/14 at 10:44; Status DC Acetaminophen (Tylenol) 650 mg PRN Q4HRS PRN PO FEVER; Start 08/13/17 at 10:45 ; Stop 08/14/17 at 10:44; Status DC Nitroglycerin (Nitrostat) 0.4 mg PRN Q5MIN PRN SL CHEST PAIN; Start 08/13/17 at 10:45; Stop 08/14/17 at 10:44; Status DC Clindamycin Phosphate 50 ml @ 100 mls/hr Q8HRS IV Last administered on 06:30; Start 08/13/17 at 22:00; Stop 08/14/17 at 16:06; Status DC Clindamycin Phosphate 50 ml @ 50 mls/hr 1X ONCE IV Last administered on 11:05; Start 08/13/17 at 11:00; Stop 08/13/17 at 11:59; Status DC Ondansetron HCl (Zofran) 4 mg PRN Q6HRS PRN IV NAUSEA/VOMITING; Start 08/13/17 at 13:00; Stop 08/14/17 at 12:59; Status DC Acetaminophen (Tylenol) 500 mg PRN Q6HRS PRN PO MILD PAIN / TEMP; Start at 13:00 Allopurinol (Zyloprim) 100 mg DAILY PO Last administered on 08/16/17 08:18; Start 08/13/17 at 13:00 Docusate Sodium (Colace) 100 mg DAILY PO Last administered on 08/16/17 08:18; Start 08/13/17 at 13:00 Furosemide (Lasix) 40 mg DAILY PO Last administered on 08/13/17 13:55; Start 08/13/17 at 13:00; Stop 08/14/17 at 14:46; Status DC Lisinopril (Prinivil) 5 mg DAILY PO Last administered on 08/16/17 08:18; Start 08/13/17 at 13:00 Metoprolol Succinate (Toprol Xl) 75 mg DAILY PO Last administered on 08/16/17 08:19; Start 08/13/17 at 13:00 Nystatin (Nystop) 1 ria BID TP Last administered on 08/16/17 08:19; Start at 13:00 Oxycodone/ Acetaminophen (Percocet 5/325) 1 tab PRN Q4HRS PRN PO PAIN Last administered on 08/16/17 11:53; Start 08/13/17 at 13:00 Non-Formulary Medication 1 puff PRN Q6HRS PRN INH SHORTNESS OF BREATH; Start at 13:00; Stop 08/13/17 at 13:08; Status DC Furosemide (Lasix) 40 mg DAILY IVP Last administered on 08/14/17 08:52; Start 08/13/17 at 13:00; Stop 08/14/17 at 14:28; Status DC Albuterol Sulfate (Ventolin Neb Soln) 2.5 mg PRN Q6HRS PRN NEB SHORTNESS OF BREATH; Start 08/13/17 at 13:15 Polyethylene Glycol (miraLAX PACKET) 17 gm DAILY PO Last administered on 08:17; Start 08/14/17 at 09:00 Potassium Chloride (Klor-Con) 20 meq DAILYWBKFT PO Last administered on 08:18; Start 08/14/17 at 08:45 Furosemide (Lasix) 40 mg BID92 PO Last administered on 08/16/17 08:18; Start 08/14/17 at 15:00 Levofloxacin (Levaquin) 500 mg DAILY06 PO Last administered on 08/16/17 05:37 ; Start 08/14/17 at 17:00 Ondansetron HCl (Zofran Odt) 4 mg PRN Q6HRS PRN PO NAUSEA/VOMITING Last administered on 08/14/17 17:09; Start 08/14/17 at 16:15 Active Scripts Active Oxycodone-Acetaminophen 5-325 (Oxycodone Hcl/Acetaminophen) 1 Each Tablet 1 Tab PO PRN Q4HRS PRN Colace (Docusate Sodium) 100 Mg Capsule 100 Mg PO DAILY Proair Hfa Inhaler (Albuterol Sulfate) 8.5 Gm Hfa.aer.ad 1 Puff INH PRN Q6HRS PRN Nystop (Nystatin) 60 Gm Powder 1 Ria TP BID 14 Days Lisinopril 5 Mg Tablet 5 Mg PO DAILY Metoprolol Succinate ( Xl ) (Metoprolol Succinate) 25 Mg Tab.er.24h 75 Mg PO DAILY Furosemide 40 Mg Tablet 40 Mg PO DAILY Allopurinol 100 Mg Tablet 100 Mg PO DAILY Vitals/I & O Vital Sign - Last 24 Hours 08/15/17 08/15/17 08/15/17 08/15/17 14:44 15:00 15:44 19:49 Temp 97.9 99.5 97.9 99.5 Pulse 75 81 Resp 18 18 20 20 B/P (MAP) 126/81 (96) 95/47 (63) Pulse Ox 97 98 97 95 O2 Delivery Room Air Room Air Room Air Room Air 08/15/17 08/15/17 08/16/17 08/16/17 20:00 23:51 03:39 07:00 Temp 98.6 97.9 98.2 98.6 97.9 98.2 Pulse 76 72 106 Resp 18 18 18 B/P (MAP) 122/72 (89) 108/59 (75) 145/88 (107) Pulse Ox 94 95 98 O2 Delivery Room Air Room Air Room Air Room Air 08/16/17 08/16/17 08/16/17 08/16/17 08:00 08:18 08:19 10:59 Temp 98.2 98.2 Pulse 106 106 90 Resp 19 B/P (MAP) 145/88 145/88 118/73 (88) Pulse Ox 97 O2 Delivery Room Air Room Air 08/16/17 11:53 Resp 21 Pulse Ox 97 O2 Delivery Room Air CHUN BIANCHI III DO Aug 16, 2017 13:06
[2017-08-16 15:02] VITALS: BP 120/69
[2017-08-16 19:00] VITALS: BP 141/78
[2017-08-16 22:52] VITALS: BP 145/93
[2017-08-17] VITALS (7 sets, daily range): BP systolic 125–142; BP diastolic 59–77
[2017-08-17 05:28] LABS: BASO # 0.1 x10^3/uL (0.0-0.2); BASO % 1 % (0-3); EOS % 4 % (0-3); HEMATOCRIT 32.1 % (36.0-47.0); HEMOGLOBIN 10.3 g/dL (12.0-15.5); LYMPH # 0.3 x10^3/uL (1.0-4.8); LYMPH % 6 % (24-48); MEAN CORPUSCULAR HEMOGLOBIN 29 pg (25-35); MEAN CORPUSCULAR HGB CONC 32 g/dL (31-37); MEAN CORPUSCULAR VOLUME 91 fL (79-100); MONO % 16 % (0-9); NEUT % 73 % (31-73); PLATELET COUNT 189 x10^3/uL (140-400); RED BLOOD COUNT 3.54 x10^6/uL (3.50-5.40); RED CELL DISTRIBUTION WIDTH 18.5 % (11.5-14.5); WHITE BLOOD COUNT 6.1 x10^3/uL (4.0-11.0)
[2017-08-17] MEDS: oxyCODONE/APAP 5/325 1 TAB TABLET PO PRN (05:41)
[2017-08-17 05:55] LABS: CALCIUM 8.7 mg/dL (8.5-10.1); CREATININE 1.1 mg/dL (0.6-1.0); POTASSIUM 4.3 mmol/L (3.5-5.1)
[2017-08-17] MEDS: NYSTATIN TOPICAL POWDER 15GM BOTTLE. TP SCH ×2 (09:00→21:13)
[2017-08-17] MEDS: POLYETHYLENE GLYCOL 3350 17 GM PACKET. PO SCH (09:20)
[2017-08-17] MEDS: DOCUSATE SODIUM 100 MG CAPSULE. PO SCH (09:20)
[2017-08-17] MEDS: METOPROLOL SUCC 24HR ER 25 MG TAB.ER.24H. PO SCH (09:21)
[2017-08-17] MEDS: POTASSIUM CHLORIDE 20 MEQ TABLET.ER. PO SCH (09:21)
[2017-08-17] MEDS: FUROSEMIDE 40 MG TABLET. PO SCH ×2 (09:22→14:28)
[2017-08-17] MEDS: LISINOPRIL 5 MG TABLET. PO SCH (09:22)
[2017-08-17] MEDS: ALLOPURINOL 100 MG TABLET. PO SCH (09:22)
--- NOTE | 2017-08-17 11:13 | PDOC ---
PROGRESS NOTES Chief Complaint Chief Complaint 0. Suicidal ideation sec to homelessness and multiple health issues 1. 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 The lymphadenopathy has progressed between 05/2017 to 07/2017. 2. morbid obesity, BMI 56 3. acute on chronic systolic CHF, ejection fraction of only 20-25%. 4. HTn, poor control, had not been treated 5. anxiety and depression, suicidal intent here for 3 days. 6. hyponatremia and transaminitis from CHF History of Present Illness History of Present Illness Patient sitting in bed with legs hanging over side. Patient told healthcare team her employer had a fundraise for her and she will likely have a place to be discharged to tomorrow. Patient relayed news with obvious emotion. Vitals Vitals Vital Signs Date Time Temp Pulse Resp B/P (MAP) Pulse Ox O2 Delivery O2 Flow Rate FiO2 08/17/17 09:22 82 125/77 08/17/17 08:00 Room Air 08/17/17 07:00 98.2 20 95 98.2 Physical Exam Physical Exam Patient awake, alert, oriented. Spoke in complete sentences without SOA. Skin warm and well perfused. LLE TTP. Dressing on wound CDI. General: Alert, Oriented X3, No acute distress, Other (crying) Heart: Regular rate, Other (heart sounds distant) Lungs: Clear Abdomen: Normal bowel sounds, Soft, Other (obese, no guarding no rebound non tender, NABS) Extremities: No clubbing, No cyanosis, Other (left leg edema with redness on dorsal side, 1 signif size bullae/vesicle, tender to exam) Skin: Other (Bandage on L leg clean and dry) Labs LABS Laboratory Tests Test 08/17/17 04:50 White Blood Count 6.1 x10^3/uL (4.0-11.0) Red Blood Count 3.54 x10^6/uL (3.50-5.40) Hemoglobin 10.3 g/dL (12.0-15.5) Hematocrit 32.1 % (36.0-47.0) Mean Corpuscular Volume 91 fL (79-100) Mean Corpuscular Hemoglobin 29 pg (25-35) Mean Corpuscular Hemoglobin Concent 32 g/dL (31-37) Red Cell Distribution Width 18.5 % (11.5-14.5) Platelet Count 189 x10^3/uL (140-400) Neutrophils (%) (Auto) 73 % (31-73) Lymphocytes (%) (Auto) 6 % (24-48) Monocytes (%) (Auto) 16 % (0-9) Eosinophils (%) (Auto) 4 % (0-3) Basophils (%) (Auto) 1 % (0-3) Neutrophils # (Auto) 4.4 x10^3uL (1.8-7.7) Lymphocytes # (Auto) 0.3 x10^3/uL (1.0-4.8) Monocytes # (Auto) 1.0 x10^3/uL (0.0-1.1) Eosinophils # (Auto) 0.3 x10^3/uL (0.0-0.7) Basophils # (Auto) 0.1 x10^3/uL (0.0-0.2) Sodium Level 136 mmol/L (136-145) Potassium Level 4.3 mmol/L (3.5-5.1) Chloride Level 99 mmol/L (98-107) Carbon Dioxide Level 32 mmol/L (21-32) Anion Gap 5 (6-14) Blood Urea Nitrogen 16 mg/dL (7-20) Creatinine 1.1 mg/dL (0.6-1.0) Estimated GFR (Cockcroft-Gault) 51.0 Glucose Level 92 mg/dL (70-99) Calcium Level 8.7 mg/dL (8.5-10.1) Review of Systems Review of Systems Patient tired. Patient hungry. Assessment and Plan Assessmemt and Plan Assessment: 0. Suicidal ideation sec to homelessness and multiple health issues 1. 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 The lymphadenopathy has progressed between 05/2017 to 07/2017. 2. morbid obesity, BMI 56 3. acute on chronic systolic CHF, ejection fraction of only 20-25%. 4. HTn, poor control, had not been treated 5. anxiety and depression, suicidal intent here for 3 days. 6. hyponatremia and transaminitis from CHF Plan: 1. Continue home meds 2. Continue wound care 3. Appreciate aids social worker input 4. Possible d/c tomorrow? 5. Continue with plan of care for cancer treatment. Problems: Comment Review of Relevant I have reviewed the following items feli (where applicable) has been applied. Labs Laboratory Tests Test 08/16/17 04:10 08/17/17 04:50 White Blood Count 4.8 x10^3/uL (4.0-11.0) 6.1 x10^3/uL (4.0-11.0) Red Blood Count 3.51 x10^6/uL (3.50-5.40) 3.54 x10^6/uL (3.50-5.40) Hemoglobin 10.3 g/dL (12.0-15.5) 10.3 g/dL (12.0-15.5) Hematocrit 31.1 % (36.0-47.0) 32.1 % (36.0-47.0) Mean Corpuscular Volume 89 fL (79-100) 91 fL (79-100) Mean Corpuscular Hemoglobin 29 pg (25-35) 29 pg (25-35) Mean Corpuscular Hemoglobin Concent 33 g/dL (31-37) 32 g/dL (31-37) Red Cell Distribution Width 17.8 % (11.5-14.5) 18.5 % (11.5-14.5) Platelet Count 201 x10^3/uL (140-400) 189 x10^3/uL (140-400) Neutrophils (%) (Auto) 70 % (31-73) 73 % (31-73) Lymphocytes (%) (Auto) 6 % (24-48) 6 % (24-48) Monocytes (%) (Auto) 19 % (0-9) 16 % (0-9) Eosinophils (%) (Auto) 5 % (0-3) 4 % (0-3) Basophils (%) (Auto) 1 % (0-3) 1 % (0-3) Neutrophils # (Auto) 3.4 x10^3uL (1.8-7.7) 4.4 x10^3uL (1.8-7.7) Lymphocytes # (Auto) 0.3 x10^3/uL (1.0-4.8) 0.3 x10^3/uL (1.0-4.8) Monocytes # (Auto) 0.9 x10^3/uL (0.0-1.1) 1.0 x10^3/uL (0.0-1.1) Eosinophils # (Auto) 0.2 x10^3/uL (0.0-0.7) 0.3 x10^3/uL (0.0-0.7) Basophils # (Auto) 0.0 x10^3/uL (0.0-0.2) 0.1 x10^3/uL (0.0-0.2) Sodium Level 136 mmol/L (136-145) Potassium Level 4.3 mmol/L (3.5-5.1) Chloride Level 99 mmol/L (98-107) Carbon Dioxide Level 32 mmol/L (21-32) Anion Gap 5 (6-14) Blood Urea Nitrogen 16 mg/dL (7-20) Creatinine 1.1 mg/dL (0.6-1.0) Estimated GFR (Cockcroft-Gault) 51.0 Glucose Level 92 mg/dL (70-99) Calcium Level 8.7 mg/dL (8.5-10.1) Laboratory Tests Test 08/17/17 04:50 White Blood Count 6.1 x10^3/uL (4.0-11.0) Red Blood Count 3.54 x10^6/uL (3.50-5.40) Hemoglobin 10.3 g/dL (12.0-15.5) Hematocrit 32.1 % (36.0-47.0) Mean Corpuscular Volume 91 fL (79-100) Mean Corpuscular Hemoglobin 29 pg (25-35) Mean Corpuscular Hemoglobin Concent 32 g/dL (31-37) Red Cell Distribution Width 18.5 % (11.5-14.5) Platelet Count 189 x10^3/uL (140-400) Neutrophils (%) (Auto) 73 % (31-73) Lymphocytes (%) (Auto) 6 % (24-48) Monocytes (%) (Auto) 16 % (0-9) Eosinophils (%) (Auto) 4 % (0-3) Basophils (%) (Auto) 1 % (0-3) Neutrophils # (Auto) 4.4 x10^3uL (1.8-7.7) Lymphocytes # (Auto) 0.3 x10^3/uL (1.0-4.8) Monocytes # (Auto) 1.0 x10^3/uL (0.0-1.1) Eosinophils # (Auto) 0.3 x10^3/uL (0.0-0.7) Basophils # (Auto) 0.1 x10^3/uL (0.0-0.2) Sodium Level 136 mmol/L (136-145) Potassium Level 4.3 mmol/L (3.5-5.1) Chloride Level 99 mmol/L (98-107) Carbon Dioxide Level 32 mmol/L (21-32) Anion Gap 5 (6-14) Blood Urea Nitrogen 16 mg/dL (7-20) Creatinine 1.1 mg/dL (0.6-1.0) Estimated GFR (Cockcroft-Gault) 51.0 Glucose Level 92 mg/dL (70-99) Calcium Level 8.7 mg/dL (8.5-10.1) Medications Current Medications Aspirin (CloudAccess Aspirin) 325 mg 1X ONCE PO Last administered on 08/13/17 09:03 ; Start 08/13/17 at 08:00; Stop 08/13/17 at 08:01; Status DC Morphine Sulfate 4 mg PRN Q2HR PRN IV PAIN GREATER THAN 3/10 Last administered on 08/13/17 09:04; Start 08/13/17 at 08:15 Ondansetron HCl (Zofran) 4 mg PRN Q8HRS PRN IV NAUSEA/VOMITING; Start 08/13/17 at 10:45; Stop 08/13/17 at 12:56; Status DC Morphine Sulfate 4 mg PRN Q2HR PRN IV PAIN; Start 08/13/17 at 10:45; Stop 08/14 at 10:44; Status DC Acetaminophen (Tylenol) 650 mg PRN Q4HRS PRN PO FEVER; Start 08/13/17 at 10:45 ; Stop 08/14/17 at 10:44; Status DC Nitroglycerin (Nitrostat) 0.4 mg PRN Q5MIN PRN SL CHEST PAIN; Start 08/13/17 at 10:45; Stop 08/14/17 at 10:44; Status DC Clindamycin Phosphate 50 ml @ 100 mls/hr Q8HRS IV Last administered on 06:30; Start 08/13/17 at 22:00; Stop 08/14/17 at 16:06; Status DC Clindamycin Phosphate 50 ml @ 50 mls/hr 1X ONCE IV Last administered on 11:05; Start 08/13/17 at 11:00; Stop 08/13/17 at 11:59; Status DC Ondansetron HCl (Zofran) 4 mg PRN Q6HRS PRN IV NAUSEA/VOMITING; Start 08/13/17 at 13:00; Stop 08/14/17 at 12:59; Status DC Acetaminophen (Tylenol) 500 mg PRN Q6HRS PRN PO MILD PAIN / TEMP; Start at 13:00 Allopurinol (Zyloprim) 100 mg DAILY PO Last administered on 08/17/17 09:22; Start 08/13/17 at 13:00 Docusate Sodium (Colace) 100 mg DAILY PO Last administered on 08/17/17 09:20; Start 08/13/17 at 13:00 Furosemide (Lasix) 40 mg DAILY PO Last administered on 08/13/17 13:55; Start 08/13/17 at 13:00; Stop 08/14/17 at 14:46; Status DC Lisinopril (Prinivil) 5 mg DAILY PO Last administered on 08/17/17 09:22; Start 08/13/17 at 13:00 Metoprolol Succinate (Toprol Xl) 75 mg DAILY PO Last administered on 08/17/17 09:21; Start 08/13/17 at 13:00 Nystatin (Nystop) 1 alvin BID TP Last administered on 08/17/17 09:00; Start at 13:00 Oxycodone/ Acetaminophen (Percocet 5/325) 1 tab PRN Q4HRS PRN PO PAIN Last administered on 08/17/17 05:41; Start 08/13/17 at 13:00 Non-Formulary Medication 1 puff PRN Q6HRS PRN INH SHORTNESS OF BREATH; Start at 13:00; Stop 08/13/17 at 13:08; Status DC Furosemide (Lasix) 40 mg DAILY IVP Last administered on 08/14/17 08:52; Start 08/13/17 at 13:00; Stop 08/14/17 at 14:28; Status DC Albuterol Sulfate (Ventolin Neb Soln) 2.5 mg PRN Q6HRS PRN NEB SHORTNESS OF BREATH; Start 08/13/17 at 13:15 Polyethylene Glycol (miraLAX PACKET) 17 gm DAILY PO Last administered on 09:20; Start 08/14/17 at 09:00 Potassium Chloride (Klor-Con) 20 meq DAILYWBKFT PO Last administered on 09:21; Start 08/14/17 at 08:45 Furosemide (Lasix) 40 mg BID92 PO Last administered on 08/17/17 09:22; Start 08/14/17 at 15:00 Levofloxacin (Levaquin) 500 mg DAILY06 PO Last administered on 08/17/17 05:41 ; Start 08/14/17 at 17:00 Ondansetron HCl (Zofran Odt) 4 mg PRN Q6HRS PRN PO NAUSEA/VOMITING Last administered on 08/14/17 17:09; Start 08/14/17 at 16:15 Active Scripts Active Oxycodone-Acetaminophen 5-325 (Oxycodone Hcl/Acetaminophen) 1 Each Tablet 1 Tab PO PRN Q4HRS PRN Colace (Docusate Sodium) 100 Mg Capsule 100 Mg PO DAILY Proair Hfa Inhaler (Albuterol Sulfate) 8.5 Gm Hfa.aer.ad 1 Puff INH PRN Q6HRS PRN Nystop (Nystatin) 60 Gm Powder 1 Alvin TP BID 14 Days Lisinopril 5 Mg Tablet 5 Mg PO DAILY Metoprolol Succinate ( Xl ) (Metoprolol Succinate) 25 Mg Tab.er.24h 75 Mg PO DAILY Furosemide 40 Mg Tablet 40 Mg PO DAILY Allopurinol 100 Mg Tablet 100 Mg PO DAILY Vitals/I & O Vital Sign - Last 24 Hours 08/16/17 08/16/17 08/16/17 08/16/17 11:53 15:02 19:00 20:00 Temp 98.5 98.1 98.5 98.1 Pulse 82 72 Resp 21 19 20 B/P (MAP) 120/69 (86) 141/78 (99) Pulse Ox 97 95 95 O2 Delivery Room Air Room Air Room Air Room Air 08/16/17 08/17/17 08/17/17 08/17/17 22:52 03:13 06:41 07:00 Temp 98.1 97.9 98.2 98.1 97.9 98.2 Pulse 78 75 82 Resp 20 20 20 20 B/P (MAP) 145/93 (110) 125/76 (92) 125/77 (93) Pulse Ox 95 95 95 95 O2 Delivery Room Air Room Air Room Air Room Air 08/17/17 08/17/17 08/17/17 08:00 09:21 09:22 Pulse 82 82 B/P (MAP) 125/77 125/77 O2 Delivery Room Air CHUN BIANCHI III DO Aug 17, 2017 11:13
--- NOTE | 2017-08-17 17:31 | PDOC ---
PROGRESS NOTES Subjective Subjective HPI - Mantle cell lymphoma involving the left axillary lymph nodes and possible involvement of the lungs. ROS - no CP Objective Objective Vital Signs Date Time Temp Pulse Resp B/P (MAP) Pulse Ox O2 Delivery O2 Flow Rate FiO2 08/17/17 15:00 98.0 75 20 130/71 (90) 93 Room Air 98.0 Intake and Output 08/18/17 07:00 Intake Total 600 ml Balance 600 ml Intake Oral 600 ml # Voids 3 Physical Exam Heart: Normal S1, Normal S2 General: Alert, Oriented X3 Lungs: Clear to auscultation Neuro: Normal speech Psych/Mental Status: Mental status NL Assessment Assessment IMPRESSION AND PLAN: 1. 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 The lymphadenopathy has progressed between 05/2017 to 07/2017. She had an ultrasound-guided biopsy of the left axillary lymph node on 05/27/2017, which revealed mantle cell lymphoma in addition to kappa predominant plasmacytosis. 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 CT scan of the neck, chest, abdomen and pelvis [address] reveals axillary, mediastinal and retroperitoneal lymphadenopathy. 14 x 6 mm extraconal mass within the medial right orbit with mass effect on the medial rectus muscle. MRI brain and orbits suggests thus to be a hemangioma. Mantle cell lymphoma prognostic score is 3, which would indicate a 5-yr survival of 60%. s/p port 07/31/17 s/p bone marrow 08/04/17. bone marrow biopsy results pending. She was started on chemotherapy with Rituxan and bendeka 08/06/17. Continue to monitor for toxicities. s/p Cycle 1Day 2 on 08/07/17. Next cycle to begin on 09/03/17. 2. Congestive heart failure with an ejection fraction of 20-25%. Management per cardiology. 3. Anemia - multifactorial - monitor. Hb 10.3 Comment Review of Relevant I have reviewed the following items feli (where applicable) has been applied. Labs Laboratory Tests Test 08/16/17 04:10 08/17/17 04:50 White Blood Count 4.8 x10^3/uL (4.0-11.0) 6.1 x10^3/uL (4.0-11.0) Red Blood Count 3.51 x10^6/uL (3.50-5.40) 3.54 x10^6/uL (3.50-5.40) Hemoglobin 10.3 g/dL (12.0-15.5) 10.3 g/dL (12.0-15.5) Hematocrit 31.1 % (36.0-47.0) 32.1 % (36.0-47.0) Mean Corpuscular Volume 89 fL (79-100) 91 fL (79-100) Mean Corpuscular Hemoglobin 29 pg (25-35) 29 pg (25-35) Mean Corpuscular Hemoglobin Concent 33 g/dL (31-37) 32 g/dL (31-37) Red Cell Distribution Width 17.8 % (11.5-14.5) 18.5 % (11.5-14.5) Platelet Count 201 x10^3/uL (140-400) 189 x10^3/uL (140-400) Neutrophils (%) (Auto) 70 % (31-73) 73 % (31-73) Lymphocytes (%) (Auto) 6 % (24-48) 6 % (24-48) Monocytes (%) (Auto) 19 % (0-9) 16 % (0-9) Eosinophils (%) (Auto) 5 % (0-3) 4 % (0-3) Basophils (%) (Auto) 1 % (0-3) 1 % (0-3) Neutrophils # (Auto) 3.4 x10^3uL (1.8-7.7) 4.4 x10^3uL (1.8-7.7) Lymphocytes # (Auto) 0.3 x10^3/uL (1.0-4.8) 0.3 x10^3/uL (1.0-4.8) Monocytes # (Auto) 0.9 x10^3/uL (0.0-1.1) 1.0 x10^3/uL (0.0-1.1) Eosinophils # (Auto) 0.2 x10^3/uL (0.0-0.7) 0.3 x10^3/uL (0.0-0.7) Basophils # (Auto) 0.0 x10^3/uL (0.0-0.2) 0.1 x10^3/uL (0.0-0.2) Sodium Level 136 mmol/L (136-145) Potassium Level 4.3 mmol/L (3.5-5.1) Chloride Level 99 mmol/L (98-107) Carbon Dioxide Level 32 mmol/L (21-32) Anion Gap 5 (6-14) Blood Urea Nitrogen 16 mg/dL (7-20) Creatinine 1.1 mg/dL (0.6-1.0) Estimated GFR (Cockcroft-Gault) 51.0 Glucose Level 92 mg/dL (70-99) Calcium Level 8.7 mg/dL (8.5-10.1) Laboratory Tests Test 08/17/17 04:50 White Blood Count 6.1 x10^3/uL (4.0-11.0) Red Blood Count 3.54 x10^6/uL (3.50-5.40) Hemoglobin 10.3 g/dL (12.0-15.5) Hematocrit 32.1 % (36.0-47.0) Mean Corpuscular Volume 91 fL (79-100) Mean Corpuscular Hemoglobin 29 pg (25-35) Mean Corpuscular Hemoglobin Concent 32 g/dL (31-37) Red Cell Distribution Width 18.5 % (11.5-14.5) Platelet Count 189 x10^3/uL (140-400) Neutrophils (%) (Auto) 73 % (31-73) Lymphocytes (%) (Auto) 6 % (24-48) Monocytes (%) (Auto) 16 % (0-9) Eosinophils (%) (Auto) 4 % (0-3) Basophils (%) (Auto) 1 % (0-3) Neutrophils # (Auto) 4.4 x10^3uL (1.8-7.7) Lymphocytes # (Auto) 0.3 x10^3/uL (1.0-4.8) Monocytes # (Auto) 1.0 x10^3/uL (0.0-1.1) Eosinophils # (Auto) 0.3 x10^3/uL (0.0-0.7) Basophils # (Auto) 0.1 x10^3/uL (0.0-0.2) Sodium Level 136 mmol/L (136-145) Potassium Level 4.3 mmol/L (3.5-5.1) Chloride Level 99 mmol/L (98-107) Carbon Dioxide Level 32 mmol/L (21-32) Anion Gap 5 (6-14) Blood Urea Nitrogen 16 mg/dL (7-20) Creatinine 1.1 mg/dL (0.6-1.0) Estimated GFR (Cockcroft-Gault) 51.0 Glucose Level 92 mg/dL (70-99) Calcium Level 8.7 mg/dL (8.5-10.1) Medications Current Medications Aspirin (VTEX Aspirin) 325 mg 1X ONCE PO Last administered on 08/13/17 09:03 ; Start 08/13/17 at 08:00; Stop 08/13/17 at 08:01; Status DC Morphine Sulfate 4 mg PRN Q2HR PRN IV PAIN GREATER THAN 3/10 Last administered on 08/13/17 09:04; Start 08/13/17 at 08:15 Ondansetron HCl (Zofran) 4 mg PRN Q8HRS PRN IV NAUSEA/VOMITING; Start 08/13/17 at 10:45; Stop 08/13/17 at 12:56; Status DC Morphine Sulfate 4 mg PRN Q2HR PRN IV PAIN; Start 08/13/17 at 10:45; Stop 08/14 at 10:44; Status DC Acetaminophen (Tylenol) 650 mg PRN Q4HRS PRN PO FEVER; Start 08/13/17 at 10:45 ; Stop 08/14/17 at 10:44; Status DC Nitroglycerin (Nitrostat) 0.4 mg PRN Q5MIN PRN SL CHEST PAIN; Start 08/13/17 at 10:45; Stop 08/14/17 at 10:44; Status DC Clindamycin Phosphate 50 ml @ 100 mls/hr Q8HRS IV Last administered on 06:30; Start 08/13/17 at 22:00; Stop 08/14/17 at 16:06; Status DC Clindamycin Phosphate 50 ml @ 50 mls/hr 1X ONCE IV Last administered on 11:05; Start 08/13/17 at 11:00; Stop 08/13/17 at 11:59; Status DC Ondansetron HCl (Zofran) 4 mg PRN Q6HRS PRN IV NAUSEA/VOMITING; Start 08/13/17 at 13:00; Stop 08/14/17 at 12:59; Status DC Acetaminophen (Tylenol) 500 mg PRN Q6HRS PRN PO MILD PAIN / TEMP; Start at 13:00 Allopurinol (Zyloprim) 100 mg DAILY PO Last administered on 08/17/17 09:22; Start 08/13/17 at 13:00 Docusate Sodium (Colace) 100 mg DAILY PO Last administered on 08/17/17 09:20; Start 08/13/17 at 13:00 Furosemide (Lasix) 40 mg DAILY PO Last administered on 08/13/17 13:55; Start 08/13/17 at 13:00; Stop 08/14/17 at 14:46; Status DC Lisinopril (Prinivil) 5 mg DAILY PO Last administered on 08/17/17 09:22; Start 08/13/17 at 13:00 Metoprolol Succinate (Toprol Xl) 75 mg DAILY PO Last administered on 08/17/17 09:21; Start 08/13/17 at 13:00 Nystatin (Nystop) 1 alvin BID TP Last administered on 08/17/17 09:00; Start at 13:00 Oxycodone/ Acetaminophen (Percocet 5/325) 1 tab PRN Q4HRS PRN PO PAIN Last administered on 08/17/17 05:41; Start 08/13/17 at 13:00 Non-Formulary Medication 1 puff PRN Q6HRS PRN INH SHORTNESS OF BREATH; Start at 13:00; Stop 08/13/17 at 13:08; Status DC Furosemide (Lasix) 40 mg DAILY IVP Last administered on 08/14/17 08:52; Start 08/13/17 at 13:00; Stop 08/14/17 at 14:28; Status DC Albuterol Sulfate (Ventolin Neb Soln) 2.5 mg PRN Q6HRS PRN NEB SHORTNESS OF BREATH; Start 08/13/17 at 13:15 Polyethylene Glycol (miraLAX PACKET) 17 gm DAILY PO Last administered on 09:20; Start 08/14/17 at 09:00 Potassium Chloride (Klor-Con) 20 meq DAILYWBKFT PO Last administered on 09:21; Start 08/14/17 at 08:45 Furosemide (Lasix) 40 mg BID92 PO Last administered on 08/17/17 14:28; Start 08/14/17 at 15:00 Levofloxacin (Levaquin) 500 mg DAILY06 PO Last administered on 08/17/17 05:41 ; Start 08/14/17 at 17:00 Ondansetron HCl (Zofran Odt) 4 mg PRN Q6HRS PRN PO NAUSEA/VOMITING Last administered on 08/14/17 17:09; Start 08/14/17 at 16:15 Active Scripts Active Oxycodone-Acetaminophen 5-325 (Oxycodone Hcl/Acetaminophen) 1 Each Tablet 1 Tab PO PRN Q4HRS PRN Colace (Docusate Sodium) 100 Mg Capsule 100 Mg PO DAILY Proair Hfa Inhaler (Albuterol Sulfate) 8.5 Gm Hfa.aer.ad 1 Puff INH PRN Q6HRS PRN Nystop (Nystatin) 60 Gm Powder 1 Alvin TP BID 14 Days Lisinopril 5 Mg Tablet 5 Mg PO DAILY Metoprolol Succinate ( Xl ) (Metoprolol Succinate) 25 Mg Tab.er.24h 75 Mg PO DAILY Furosemide 40 Mg Tablet 40 Mg PO DAILY Allopurinol 100 Mg Tablet 100 Mg PO DAILY Vitals/I & O Vital Sign - Last 24 Hours 08/16/17 08/16/17 08/16/17 08/17/17 19:00 20:00 22:52 03:13 Temp 98.1 98.1 97.9 98.1 98.1 97.9 Pulse 72 78 75 Resp 20 20 20 B/P (MAP) 141/78 (99) 145/93 (110) 125/76 (92) Pulse Ox 95 95 95 O2 Delivery Room Air Room Air Room Air Room Air 08/17/17 08/17/17 08/17/17 08/17/17 06:41 07:00 08:00 09:21 Temp 98.2 98.2 Pulse 82 82 Resp 20 20 B/P (MAP) 125/77 (93) 125/77 Pulse Ox 95 95 O2 Delivery Room Air Room Air Room Air 08/17/17 08/17/17 08/17/17 08/17/17 09:22 11:00 12:26 13:17 Temp 97.2 98.2 97.2 98.2 Pulse 82 75 80 Resp 18 18 B/P (MAP) 125/77 128/73 (91) 142/66 (91) Pulse Ox 94 96 O2 Delivery Room Air Room Air Room Air 08/17/17 15:00 Temp 98.0 98.0 Pulse 75 Resp 20 B/P (MAP) 130/71 (90) Pulse Ox 93 O2 Delivery Room Air Intake and Output 08/17/17 08/17/17 08/18/17 15:00 23:00 07:00 Intake Total 600 ml Balance 600 ml JEFRY PIZARRO MD Aug 17, 2017 17:31
[2017-08-18 03:10] VITALS: BP 122/63
[2017-08-18 06:08] LABS: BASO % 1 % (0-3); EOS % 5 % (0-3); HEMATOCRIT 32.2 % (36.0-47.0); HEMOGLOBIN 10.7 g/dL (12.0-15.5); LYMPH # 0.4 x10^3/uL (1.0-4.8); LYMPH % 7 % (24-48); MEAN CORPUSCULAR HEMOGLOBIN 30 pg (25-35); MEAN CORPUSCULAR HGB CONC 33 g/dL (31-37); MEAN CORPUSCULAR VOLUME 89 fL (79-100); MONO % 16 % (0-9); NEUT % 71 % (31-73); PLATELET COUNT 198 x10^3/uL (140-400); RED BLOOD COUNT 3.63 x10^6/uL (3.50-5.40); WHITE BLOOD COUNT 6.1 x10^3/uL (4.0-11.0)
[2017-08-18 06:26] LABS: CALCIUM 8.7 mg/dL (8.5-10.1); CREATININE 1.1 mg/dL (0.6-1.0); POTASSIUM 3.8 mmol/L (3.5-5.1)
[2017-08-18 07:00] VITALS: BP 143/48
[2017-08-18] MEDS: FUROSEMIDE 40 MG TABLET. PO SCH ×3 (08:46→14:00)
[2017-08-18] MEDS: ALLOPURINOL 100 MG TABLET. PO SCH (08:46)
[2017-08-18] MEDS: POTASSIUM CHLORIDE 20 MEQ TABLET.ER. PO SCH (08:46)
[2017-08-18] MEDS: DOCUSATE SODIUM 100 MG CAPSULE. PO SCH (08:47)
[2017-08-18] MEDS: LISINOPRIL 5 MG TABLET. PO SCH (08:47)
[2017-08-18] MEDS: POLYETHYLENE GLYCOL 3350 17 GM PACKET. PO SCH (08:48)
[2017-08-18] MEDS: METOPROLOL SUCC 24HR ER 25 MG TAB.ER.24H. PO SCH (08:48)
[2017-08-18] MEDS: NYSTATIN TOPICAL POWDER 15GM BOTTLE. TP SCH (08:49)
--- NOTE | 2017-08-18 09:20 | PDOC ---
PROGRESS NOTES Subjective Subjective HPI - Mantle cell lymphoma involving the left axillary lymph nodes and possible involvement of the lungs. The lymphadenopathy has progressed between 05/2017 to 07/2017. She had an ultrasound-guided biopsy of the left axillary lymph node on 05/27/2017, which revealed mantle cell lymphoma in addition to kappa predominant plasmacytosis. ROS - no CP Objective Objective Vital Signs Date Time Temp Pulse Resp B/P (MAP) Pulse Ox O2 Delivery O2 Flow Rate FiO2 08/18/17 08:48 82 143/48 08/18/17 07:00 98.2 18 96 Room Air 98.2 Physical Exam Heart: Normal S1, Normal S2 General: Alert, Oriented X3 Lungs: Clear to auscultation Neuro: Normal speech Psych/Mental Status: Mental status NL Assessment Assessment IMPRESSION AND PLAN: 1. 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 The lymphadenopathy has progressed between 05/2017 to 07/2017. She had an ultrasound-guided biopsy of the left axillary lymph node on 05/27/2017, which revealed mantle cell lymphoma in addition to kappa predominant plasmacytosis. 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 CT scan of the neck, chest, abdomen and pelvis [address] reveals axillary, mediastinal and retroperitoneal lymphadenopathy. 14 x 6 mm extraconal mass within the medial right orbit with mass effect on the medial rectus muscle. MRI brain and orbits suggests thus to be a hemangioma. Mantle cell lymphoma prognostic score is 3, which would indicate a 5-yr survival of 60%. s/p port 07/31/17 s/p bone marrow 08/04/17. bone marrow biopsy results pending. She was started on chemotherapy with Rituxan and bendeka 08/06/17. Continue to monitor for toxicities. s/p Cycle 1Day 2 on 08/07/17. Next cycle to begin on 09/03/17. f/u with me in 1-2 weeks. 2. Congestive heart failure with an ejection fraction of 20-25%. Management per cardiology. 3. Anemia - multifactorial - monitor. Hb 10.7 Comment Review of Relevant I have reviewed the following items feli (where applicable) has been applied. Labs Laboratory Tests Test 08/17/17 04:50 08/18/17 04:40 White Blood Count 6.1 x10^3/uL (4.0-11.0) 6.1 x10^3/uL (4.0-11.0) Red Blood Count 3.54 x10^6/uL (3.50-5.40) 3.63 x10^6/uL (3.50-5.40) Hemoglobin 10.3 g/dL (12.0-15.5) 10.7 g/dL (12.0-15.5) Hematocrit 32.1 % (36.0-47.0) 32.2 % (36.0-47.0) Mean Corpuscular Volume 91 fL (79-100) 89 fL (79-100) Mean Corpuscular Hemoglobin 29 pg (25-35) 30 pg (25-35) Mean Corpuscular Hemoglobin Concent 32 g/dL (31-37) 33 g/dL (31-37) Red Cell Distribution Width 18.5 % (11.5-14.5) 19.0 % (11.5-14.5) Platelet Count 189 x10^3/uL (140-400) 198 x10^3/uL (140-400) Neutrophils (%) (Auto) 73 % (31-73) 71 % (31-73) Lymphocytes (%) (Auto) 6 % (24-48) 7 % (24-48) Monocytes (%) (Auto) 16 % (0-9) 16 % (0-9) Eosinophils (%) (Auto) 4 % (0-3) 5 % (0-3) Basophils (%) (Auto) 1 % (0-3) 1 % (0-3) Neutrophils # (Auto) 4.4 x10^3uL (1.8-7.7) 4.3 x10^3uL (1.8-7.7) Lymphocytes # (Auto) 0.3 x10^3/uL (1.0-4.8) 0.4 x10^3/uL (1.0-4.8) Monocytes # (Auto) 1.0 x10^3/uL (0.0-1.1) 1.0 x10^3/uL (0.0-1.1) Eosinophils # (Auto) 0.3 x10^3/uL (0.0-0.7) 0.3 x10^3/uL (0.0-0.7) Basophils # (Auto) 0.1 x10^3/uL (0.0-0.2) 0.0 x10^3/uL (0.0-0.2) Sodium Level 136 mmol/L (136-145) 138 mmol/L (136-145) Potassium Level 4.3 mmol/L (3.5-5.1) 3.8 mmol/L (3.5-5.1) Chloride Level 99 mmol/L (98-107) 100 mmol/L (98-107) Carbon Dioxide Level 32 mmol/L (21-32) 34 mmol/L (21-32) Anion Gap 5 (6-14) 4 (6-14) Blood Urea Nitrogen 16 mg/dL (7-20) 15 mg/dL (7-20) Creatinine 1.1 mg/dL (0.6-1.0) 1.1 mg/dL (0.6-1.0) Estimated GFR (Cockcroft-Gault) 51.0 51.0 Glucose Level 92 mg/dL (70-99) 89 mg/dL (70-99) Calcium Level 8.7 mg/dL (8.5-10.1) 8.7 mg/dL (8.5-10.1) Laboratory Tests Test 08/18/17 04:40 White Blood Count 6.1 x10^3/uL (4.0-11.0) Red Blood Count 3.63 x10^6/uL (3.50-5.40) Hemoglobin 10.7 g/dL (12.0-15.5) Hematocrit 32.2 % (36.0-47.0) Mean Corpuscular Volume 89 fL (79-100) Mean Corpuscular Hemoglobin 30 pg (25-35) Mean Corpuscular Hemoglobin Concent 33 g/dL (31-37) Red Cell Distribution Width 19.0 % (11.5-14.5) Platelet Count 198 x10^3/uL (140-400) Neutrophils (%) (Auto) 71 % (31-73) Lymphocytes (%) (Auto) 7 % (24-48) Monocytes (%) (Auto) 16 % (0-9) Eosinophils (%) (Auto) 5 % (0-3) Basophils (%) (Auto) 1 % (0-3) Neutrophils # (Auto) 4.3 x10^3uL (1.8-7.7) Lymphocytes # (Auto) 0.4 x10^3/uL (1.0-4.8) Monocytes # (Auto) 1.0 x10^3/uL (0.0-1.1) Eosinophils # (Auto) 0.3 x10^3/uL (0.0-0.7) Basophils # (Auto) 0.0 x10^3/uL (0.0-0.2) Sodium Level 138 mmol/L (136-145) Potassium Level 3.8 mmol/L (3.5-5.1) Chloride Level 100 mmol/L (98-107) Carbon Dioxide Level 34 mmol/L (21-32) Anion Gap 4 (6-14) Blood Urea Nitrogen 15 mg/dL (7-20) Creatinine 1.1 mg/dL (0.6-1.0) Estimated GFR (Cockcroft-Gault) 51.0 Glucose Level 89 mg/dL (70-99) Calcium Level 8.7 mg/dL (8.5-10.1) Medications Current Medications Aspirin (AnyMeeting Aspirin) 325 mg 1X ONCE PO Last administered on 08/13/17 09:03 ; Start 08/13/17 at 08:00; Stop 08/13/17 at 08:01; Status DC Morphine Sulfate 4 mg PRN Q2HR PRN IV PAIN GREATER THAN 3/10 Last administered on 08/13/17 09:04; Start 08/13/17 at 08:15 Ondansetron HCl (Zofran) 4 mg PRN Q8HRS PRN IV NAUSEA/VOMITING; Start 08/13/17 at 10:45; Stop 08/13/17 at 12:56; Status DC Morphine Sulfate 4 mg PRN Q2HR PRN IV PAIN; Start 08/13/17 at 10:45; Stop 08/14 at 10:44; Status DC Acetaminophen (Tylenol) 650 mg PRN Q4HRS PRN PO FEVER; Start 08/13/17 at 10:45 ; Stop 08/14/17 at 10:44; Status DC Nitroglycerin (Nitrostat) 0.4 mg PRN Q5MIN PRN SL CHEST PAIN; Start 08/13/17 at 10:45; Stop 08/14/17 at 10:44; Status DC Clindamycin Phosphate 50 ml @ 100 mls/hr Q8HRS IV Last administered on 06:30; Start 08/13/17 at 22:00; Stop 08/14/17 at 16:06; Status DC Clindamycin Phosphate 50 ml @ 50 mls/hr 1X ONCE IV Last administered on 11:05; Start 08/13/17 at 11:00; Stop 08/13/17 at 11:59; Status DC Ondansetron HCl (Zofran) 4 mg PRN Q6HRS PRN IV NAUSEA/VOMITING; Start 08/13/17 at 13:00; Stop 08/14/17 at 12:59; Status DC Acetaminophen (Tylenol) 500 mg PRN Q6HRS PRN PO MILD PAIN / TEMP; Start at 13:00 Allopurinol (Zyloprim) 100 mg DAILY PO Last administered on 08/18/17 08:46; Start 08/13/17 at 13:00 Docusate Sodium (Colace) 100 mg DAILY PO Last administered on 08/18/17 08:47; Start 08/13/17 at 13:00 Furosemide (Lasix) 40 mg DAILY PO Last administered on 08/13/17 13:55; Start 08/13/17 at 13:00; Stop 08/14/17 at 14:46; Status DC Lisinopril (Prinivil) 5 mg DAILY PO Last administered on 08/18/17 08:47; Start 08/13/17 at 13:00 Metoprolol Succinate (Toprol Xl) 75 mg DAILY PO Last administered on 08/18/17 08:48; Start 08/13/17 at 13:00 Nystatin (Nystop) 1 alvin BID TP Last administered on 08/18/17 08:49; Start at 13:00 Oxycodone/ Acetaminophen (Percocet 5/325) 1 tab PRN Q4HRS PRN PO PAIN Last administered on 08/17/17 05:41; Start 08/13/17 at 13:00 Non-Formulary Medication 1 puff PRN Q6HRS PRN INH SHORTNESS OF BREATH; Start at 13:00; Stop 08/13/17 at 13:08; Status DC Furosemide (Lasix) 40 mg DAILY IVP Last administered on 08/14/17 08:52; Start 08/13/17 at 13:00; Stop 08/14/17 at 14:28; Status DC Albuterol Sulfate (Ventolin Neb Soln) 2.5 mg PRN Q6HRS PRN NEB SHORTNESS OF BREATH; Start 08/13/17 at 13:15 Polyethylene Glycol (miraLAX PACKET) 17 gm DAILY PO Last administered on 09:20; Start 08/14/17 at 09:00 Potassium Chloride (Klor-Con) 20 meq DAILYWBKFT PO Last administered on 08:46; Start 08/14/17 at 08:45 Furosemide (Lasix) 40 mg BID92 PO Last administered on 08/17/17 14:28; Start 08/14/17 at 15:00 Levofloxacin (Levaquin) 500 mg DAILY06 PO Last administered on 08/18/17 05:14 ; Start 08/14/17 at 17:00 Ondansetron HCl (Zofran Odt) 4 mg PRN Q6HRS PRN PO NAUSEA/VOMITING Last administered on 08/14/17 17:09; Start 08/14/17 at 16:15 Active Scripts Active Oxycodone-Acetaminophen 5-325 (Oxycodone Hcl/Acetaminophen) 1 Each Tablet 1 Tab PO PRN Q4HRS PRN Colace (Docusate Sodium) 100 Mg Capsule 100 Mg PO DAILY Proair Hfa Inhaler (Albuterol Sulfate) 8.5 Gm Hfa.aer.ad 1 Puff INH PRN Q6HRS PRN Nystop (Nystatin) 60 Gm Powder 1 Alvin TP BID 14 Days Lisinopril 5 Mg Tablet 5 Mg PO DAILY Metoprolol Succinate ( Xl ) (Metoprolol Succinate) 25 Mg Tab.er.24h 75 Mg PO DAILY Furosemide 40 Mg Tablet 40 Mg PO DAILY Allopurinol 100 Mg Tablet 100 Mg PO DAILY Vitals/I & O Vital Sign - Last 24 Hours 08/17/17 08/17/17 08/17/17 08/17/17 09:21 09:22 11:00 12:26 Temp 97.2 98.2 97.2 98.2 Pulse 82 82 75 80 Resp 18 18 B/P (MAP) 125/77 125/77 128/73 (91) 142/66 (91) Pulse Ox 94 96 O2 Delivery Room Air Room Air 08/17/17 08/17/17 08/17/17 08/17/17 13:17 15:00 19:10 20:00 Temp 98.0 98.3 98.0 98.3 Pulse 75 81 Resp 20 22 B/P (MAP) 130/71 (90) 139/59 (85) Pulse Ox 93 93 O2 Delivery Room Air Room Air Room Air Room Air 08/17/17 08/18/17 08/18/17 08/18/17 23:05 03:10 07:00 08:47 Temp 98.1 98.2 98.2 98.1 98.2 98.2 Pulse 82 80 82 82 Resp 20 20 18 B/P (MAP) 133/75 (94) 122/63 (82) 143/48 (79) 143/48 Pulse Ox 92 93 96 O2 Delivery Room Air Room Air Room Air 08/18/17 08:48 Pulse 82 B/P (MAP) 143/48 JEFRY PIZARRO MD Aug 18, 2017 09:20
--- NOTE | 2017-08-18 10:49 | PDOC ---
PROGRESS NOTES Chief Complaint Chief Complaint 0. Suicidal ideation sec to homelessness and multiple health issues 1. 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 The lymphadenopathy has progressed between 05/2017 to 07/2017. 2. morbid obesity, BMI 56 3. acute on chronic systolic CHF, ejection fraction of only 20-25%. 4. HTn, poor control, had not been treated 5. anxiety and depression, suicidal intent here for 3 days. 6. hyponatremia and transaminitis from CHF History of Present Illness History of Present Illness Patient sitting in bed with legs hanging over side. Patient indicated she had a plan for housing and medical care following discharge from hospital. She is going to be discharged to a hotel that is paid for by her employer [employer]. Patient indicated she needed to be discharged after 2 because the hotel room will not be ready until then. Vitals Vitals Vital Signs Date Time Temp Pulse Resp B/P (MAP) Pulse Ox O2 Delivery O2 Flow Rate FiO2 08/18/17 10:04 Room Air 08/18/17 08:48 82 143/48 08/18/17 07:00 98.2 18 96 98.2 Physical Exam Physical Exam Patient awake, alert, oriented. Spoke in complete sentences without SOA. Skin warm and well perfused. LLE TTP. Dressing on wound CDI. General: Alert, Oriented X3 Heart: Normal S1, Normal S2 Lungs: Clear Abdomen: Normal bowel sounds, Soft, Other (obese, no guarding no rebound non tender, NABS) Extremities: No clubbing, No cyanosis, Other (left leg edema with redness on dorsal side, 1 signif size bullae/vesicle, tender to exam) Skin: Other (Bandage on L leg clean and dry) Labs LABS Laboratory Tests Test 08/18/17 04:40 White Blood Count 6.1 x10^3/uL (4.0-11.0) Red Blood Count 3.63 x10^6/uL (3.50-5.40) Hemoglobin 10.7 g/dL (12.0-15.5) Hematocrit 32.2 % (36.0-47.0) Mean Corpuscular Volume 89 fL (79-100) Mean Corpuscular Hemoglobin 30 pg (25-35) Mean Corpuscular Hemoglobin Concent 33 g/dL (31-37) Red Cell Distribution Width 19.0 % (11.5-14.5) Platelet Count 198 x10^3/uL (140-400) Neutrophils (%) (Auto) 71 % (31-73) Lymphocytes (%) (Auto) 7 % (24-48) Monocytes (%) (Auto) 16 % (0-9) Eosinophils (%) (Auto) 5 % (0-3) Basophils (%) (Auto) 1 % (0-3) Neutrophils # (Auto) 4.3 x10^3uL (1.8-7.7) Lymphocytes # (Auto) 0.4 x10^3/uL (1.0-4.8) Monocytes # (Auto) 1.0 x10^3/uL (0.0-1.1) Eosinophils # (Auto) 0.3 x10^3/uL (0.0-0.7) Basophils # (Auto) 0.0 x10^3/uL (0.0-0.2) Sodium Level 138 mmol/L (136-145) Potassium Level 3.8 mmol/L (3.5-5.1) Chloride Level 100 mmol/L (98-107) Carbon Dioxide Level 34 mmol/L (21-32) Anion Gap 4 (6-14) Blood Urea Nitrogen 15 mg/dL (7-20) Creatinine 1.1 mg/dL (0.6-1.0) Estimated GFR (Cockcroft-Gault) 51.0 Glucose Level 89 mg/dL (70-99) Calcium Level 8.7 mg/dL (8.5-10.1) Review of Systems Review of Systems Patient indicated hunger. Patient tired. Assessment and Plan Assessmemt and Plan Assessment: 0. Suicidal ideation sec to homelessness and multiple health issues 1. 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 The lymphadenopathy has progressed between 05/2017 to 07/2017. 2. morbid obesity, BMI 56 3. acute on chronic systolic CHF, ejection fraction of only 20-25%. 4. HTn, poor control, had not been treated 5. anxiety and depression, suicidal intent here for 3 days. 6. hyponatremia and transaminitis from CHF Plan: 1. ok to dc today (08/18/2017) if subspecialists agree. 2. Continue home meds 3. continue care with [facility] per previous plan 4 Patient should access medical services recommended by ANAYELI 5Refrain from smoking. . Problems: Comment Review of Relevant I have reviewed the following items feli (where applicable) has been applied. Labs Laboratory Tests Test 08/17/17 04:50 08/18/17 04:40 White Blood Count 6.1 x10^3/uL (4.0-11.0) 6.1 x10^3/uL (4.0-11.0) Red Blood Count 3.54 x10^6/uL (3.50-5.40) 3.63 x10^6/uL (3.50-5.40) Hemoglobin 10.3 g/dL (12.0-15.5) 10.7 g/dL (12.0-15.5) Hematocrit 32.1 % (36.0-47.0) 32.2 % (36.0-47.0) Mean Corpuscular Volume 91 fL (79-100) 89 fL (79-100) Mean Corpuscular Hemoglobin 29 pg (25-35) 30 pg (25-35) Mean Corpuscular Hemoglobin Concent 32 g/dL (31-37) 33 g/dL (31-37) Red Cell Distribution Width 18.5 % (11.5-14.5) 19.0 % (11.5-14.5) Platelet Count 189 x10^3/uL (140-400) 198 x10^3/uL (140-400) Neutrophils (%) (Auto) 73 % (31-73) 71 % (31-73) Lymphocytes (%) (Auto) 6 % (24-48) 7 % (24-48) Monocytes (%) (Auto) 16 % (0-9) 16 % (0-9) Eosinophils (%) (Auto) 4 % (0-3) 5 % (0-3) Basophils (%) (Auto) 1 % (0-3) 1 % (0-3) Neutrophils # (Auto) 4.4 x10^3uL (1.8-7.7) 4.3 x10^3uL (1.8-7.7) Lymphocytes # (Auto) 0.3 x10^3/uL (1.0-4.8) 0.4 x10^3/uL (1.0-4.8) Monocytes # (Auto) 1.0 x10^3/uL (0.0-1.1) 1.0 x10^3/uL (0.0-1.1) Eosinophils # (Auto) 0.3 x10^3/uL (0.0-0.7) 0.3 x10^3/uL (0.0-0.7) Basophils # (Auto) 0.1 x10^3/uL (0.0-0.2) 0.0 x10^3/uL (0.0-0.2) Sodium Level 136 mmol/L (136-145) 138 mmol/L (136-145) Potassium Level 4.3 mmol/L (3.5-5.1) 3.8 mmol/L (3.5-5.1) Chloride Level 99 mmol/L (98-107) 100 mmol/L (98-107) Carbon Dioxide Level 32 mmol/L (21-32) 34 mmol/L (21-32) Anion Gap 5 (6-14) 4 (6-14) Blood Urea Nitrogen 16 mg/dL (7-20) 15 mg/dL (7-20) Creatinine 1.1 mg/dL (0.6-1.0) 1.1 mg/dL (0.6-1.0) Estimated GFR (Cockcroft-Gault) 51.0 51.0 Glucose Level 92 mg/dL (70-99) 89 mg/dL (70-99) Calcium Level 8.7 mg/dL (8.5-10.1) 8.7 mg/dL (8.5-10.1) Laboratory Tests Test 08/18/17 04:40 White Blood Count 6.1 x10^3/uL (4.0-11.0) Red Blood Count 3.63 x10^6/uL (3.50-5.40) Hemoglobin 10.7 g/dL (12.0-15.5) Hematocrit 32.2 % (36.0-47.0) Mean Corpuscular Volume 89 fL (79-100) Mean Corpuscular Hemoglobin 30 pg (25-35) Mean Corpuscular Hemoglobin Concent 33 g/dL (31-37) Red Cell Distribution Width 19.0 % (11.5-14.5) Platelet Count 198 x10^3/uL (140-400) Neutrophils (%) (Auto) 71 % (31-73) Lymphocytes (%) (Auto) 7 % (24-48) Monocytes (%) (Auto) 16 % (0-9) Eosinophils (%) (Auto) 5 % (0-3) Basophils (%) (Auto) 1 % (0-3) Neutrophils # (Auto) 4.3 x10^3uL (1.8-7.7) Lymphocytes # (Auto) 0.4 x10^3/uL (1.0-4.8) Monocytes # (Auto) 1.0 x10^3/uL (0.0-1.1) Eosinophils # (Auto) 0.3 x10^3/uL (0.0-0.7) Basophils # (Auto) 0.0 x10^3/uL (0.0-0.2) Sodium Level 138 mmol/L (136-145) Potassium Level 3.8 mmol/L (3.5-5.1) Chloride Level 100 mmol/L (98-107) Carbon Dioxide Level 34 mmol/L (21-32) Anion Gap 4 (6-14) Blood Urea Nitrogen 15 mg/dL (7-20) Creatinine 1.1 mg/dL (0.6-1.0) Estimated GFR (Cockcroft-Gault) 51.0 Glucose Level 89 mg/dL (70-99) Calcium Level 8.7 mg/dL (8.5-10.1) Medications Current Medications Aspirin (Anirudh Aspirin) 325 mg 1X ONCE PO Last administered on 08/13/17 09:03 ; Start 08/13/17 at 08:00; Stop 08/13/17 at 08:01; Status DC Morphine Sulfate 4 mg PRN Q2HR PRN IV PAIN GREATER THAN 3/10 Last administered on 08/13/17 09:04; Start 08/13/17 at 08:15 Ondansetron HCl (Zofran) 4 mg PRN Q8HRS PRN IV NAUSEA/VOMITING; Start 08/13/17 at 10:45; Stop 08/13/17 at 12:56; Status DC Morphine Sulfate 4 mg PRN Q2HR PRN IV PAIN; Start 08/13/17 at 10:45; Stop 08/14 at 10:44; Status DC Acetaminophen (Tylenol) 650 mg PRN Q4HRS PRN PO FEVER; Start 08/13/17 at 10:45 ; Stop 08/14/17 at 10:44; Status DC Nitroglycerin (Nitrostat) 0.4 mg PRN Q5MIN PRN SL CHEST PAIN; Start 08/13/17 at 10:45; Stop 08/14/17 at 10:44; Status DC Clindamycin Phosphate 50 ml @ 100 mls/hr Q8HRS IV Last administered on 06:30; Start 08/13/17 at 22:00; Stop 08/14/17 at 16:06; Status DC Clindamycin Phosphate 50 ml @ 50 mls/hr 1X ONCE IV Last administered on 11:05; Start 08/13/17 at 11:00; Stop 08/13/17 at 11:59; Status DC Ondansetron HCl (Zofran) 4 mg PRN Q6HRS PRN IV NAUSEA/VOMITING; Start 08/13/17 at 13:00; Stop 08/14/17 at 12:59; Status DC Acetaminophen (Tylenol) 500 mg PRN Q6HRS PRN PO MILD PAIN / TEMP; Start at 13:00 Allopurinol (Zyloprim) 100 mg DAILY PO Last administered on 08/18/17 08:46; Start 08/13/17 at 13:00 Docusate Sodium (Colace) 100 mg DAILY PO Last administered on 08/18/17 08:47; Start 08/13/17 at 13:00 Furosemide (Lasix) 40 mg DAILY PO Last administered on 08/13/17 13:55; Start 08/13/17 at 13:00; Stop 08/14/17 at 14:46; Status DC Lisinopril (Prinivil) 5 mg DAILY PO Last administered on 08/18/17 08:47; Start 08/13/17 at 13:00 Metoprolol Succinate (Toprol Xl) 75 mg DAILY PO Last administered on 08/18/17 08:48; Start 08/13/17 at 13:00 Nystatin (Nystop) 1 alvin BID TP Last administered on 08/18/17 08:49; Start at 13:00 Oxycodone/ Acetaminophen (Percocet 5/325) 1 tab PRN Q4HRS PRN PO PAIN Last administered on 08/17/17 05:41; Start 08/13/17 at 13:00 Non-Formulary Medication 1 puff PRN Q6HRS PRN INH SHORTNESS OF BREATH; Start at 13:00; Stop 08/13/17 at 13:08; Status DC Furosemide (Lasix) 40 mg DAILY IVP Last administered on 08/14/17 08:52; Start 08/13/17 at 13:00; Stop 08/14/17 at 14:28; Status DC Albuterol Sulfate (Ventolin Neb Soln) 2.5 mg PRN Q6HRS PRN NEB SHORTNESS OF BREATH; Start 08/13/17 at 13:15 Polyethylene Glycol (miraLAX PACKET) 17 gm DAILY PO Last administered on 09:20; Start 08/14/17 at 09:00 Potassium Chloride (Klor-Con) 20 meq DAILYWBKFT PO Last administered on 08:46; Start 08/14/17 at 08:45 Furosemide (Lasix) 40 mg BID92 PO Last administered on 08/17/17 14:28; Start 08/14/17 at 15:00 Levofloxacin (Levaquin) 500 mg DAILY06 PO Last administered on 08/18/17 05:14 ; Start 08/14/17 at 17:00 Ondansetron HCl (Zofran Odt) 4 mg PRN Q6HRS PRN PO NAUSEA/VOMITING Last administered on 08/14/17 17:09; Start 08/14/17 at 16:15 Active Scripts Active Oxycodone-Acetaminophen 5-325 (Oxycodone Hcl/Acetaminophen) 1 Each Tablet 1 Tab PO PRN Q4HRS PRN Colace (Docusate Sodium) 100 Mg Capsule 100 Mg PO DAILY Proair Hfa Inhaler (Albuterol Sulfate) 8.5 Gm Hfa.aer.ad 1 Puff INH PRN Q6HRS PRN Nystop (Nystatin) 60 Gm Powder 1 Alvin TP BID 14 Days Lisinopril 5 Mg Tablet 5 Mg PO DAILY Metoprolol Succinate ( Xl ) (Metoprolol Succinate) 25 Mg Tab.er.24h 75 Mg PO DAILY Furosemide 40 Mg Tablet 40 Mg PO DAILY Allopurinol 100 Mg Tablet 100 Mg PO DAILY Vitals/I & O Vital Sign - Last 24 Hours 08/17/17 08/17/17 08/17/17 08/17/17 11:00 12:26 13:17 15:00 Temp 97.2 98.2 98.0 97.2 98.2 98.0 Pulse 75 80 75 Resp 18 18 20 B/P (MAP) 128/73 (91) 142/66 (91) 130/71 (90) Pulse Ox 94 96 93 O2 Delivery Room Air Room Air Room Air Room Air 08/17/17 08/17/17 08/17/17 08/18/17 19:10 20:00 23:05 03:10 Temp 98.3 98.1 98.2 98.3 98.1 98.2 Pulse 81 82 80 Resp 22 20 20 B/P (MAP) 139/59 (85) 133/75 (94) 122/63 (82) Pulse Ox 93 92 93 O2 Delivery Room Air Room Air Room Air Room Air 08/18/17 08/18/17 08/18/17 08/18/17 07:00 08:47 08:48 10:04 Temp 98.2 98.2 Pulse 82 82 82 Resp 18 B/P (MAP) 143/48 (79) 143/48 143/48 Pulse Ox 96 O2 Delivery Room Air Room Air CHUN BIANCHI III DO Aug 18, 2017 10:48
[2017-08-18 11:00] VITALS: BP 127/58
--- NOTE | 2017-09-03 12:29 | DS ---
DATE OF DISCHARGE: 08/18/2017 ADMISSION DIAGNOSIS: Suicidal ideation. DISCHARGE DIAGNOSIS: Resolving suicidal ideation. HOSPITAL COURSE: The patient is a pleasant 57-year-old female well known to our service. She is homeless. She had suicidal ideation. She was living at hotel but could not afford anymore. She was admitted. She eventually got some funding from [employer] where she works. They did a fundraising sale representative. We discharged with close outpatient followup. DISPOSITION: Back to her hotel. ACTIVITY: As tolerated. DIET: Low sodium. MEDICATIONS: Please see the MRAD. TOTAL TIME ON DISCHARGE: 33 minutes. NIAL Masood BIANCHI DO DR: MATT/juan JOB#: [id number] / [id number]
== END 2017-08-18 16:01 | disposition home or self-care (01) | DRG 871 ==
LOC: ER 07:48 → MERGE 10:06 → 6 SOUTH 10:06
PROVIDERS: ADMIT Internal Medicine; ATTEND Internal Medicine
DX: A41.9 Sepsis, unspecified organism (principal); I50.23 Acute on chronic systolic (congestive) heart failure; C83.14 Mantle cell lymphoma, lymph nodes of axilla and upper limb; I42.9 Cardiomyopathy, unspecified; R45.851 Suicidal ideations; Z68.43 Body mass index [BMI] 50.0-59.9, adult; L03.116 Cellulitis of left lower limb; E87.1 Hypo-osmolality and hyponatremia; L03.115 Cellulitis of right lower limb; R07.9 Chest pain, unspecified; R59.1 Generalized enlarged lymph nodes; E66.01 Morbid (severe) obesity due to excess calories; R74.0 Nonspecific elevation of levels of transaminase and lactic acid dehydrogenase [LDH]; D64.9 Anemia, unspecified; D72.822 Plasmacytosis; R14.0 Abdominal distension (gaseous); F41.9 Anxiety disorder, unspecified; E78.5 Hyperlipidemia, unspecified; F32.9 Major depressive disorder, single episode, unspecified; F41.0 Panic disorder [episodic paroxysmal anxiety]; G47.33 Obstructive sleep apnea (adult) (pediatric); G89.29 Other chronic pain; I11.0 Hypertensive heart disease with heart failure; J44.9 Chronic obstructive pulmonary disease, unspecified; Z88.0 Allergy status to penicillin; K21.9 Gastro-esophageal reflux disease without esophagitis; Z59.0 Homelessness; Z87.891 Personal history of nicotine dependence; Z82.49 Family history of ischemic heart disease and other diseases of the circulatory system
CPT/HCPCS: 36415; 71010; 80048; 80053; 80307; 81001; 82553; 83735; 83880; 84443; 84484; 85007; 85025; 85610; 85651; 93005; 94250; 96365; 96375; J1940; J2270; J3490; Q0162; 97116; 99285-25; G0479

== ENCOUNTER → 2017-10-19 | Outpatient (CLI) | payer OTHER ==
[2017-10-01 10:54] VITALS: BP 129/61
[~2017-10-19] MED LIST changes: +HEPARIN PF 500 UNIT/5 ML DISP.SYRIN. IV ONE; +IOHEXOL 240 MG/ML 50ML VIAL. PO ONE; +IOHEXOL 300 MG/ML 100ML VIAL. IV ONE
--- NOTE | 2017-10-19 15:57 | RAD ---
Examination: CT chest abdomen pelvis with IV contrast History: History of mantle cell lymphoma of lymph nodes of the axilla Comparison: None available Technique: Axial CT images of the chest abdomen and pelvis performed with IV contrast. Coronal and sagittal reformats are performed. PQRS Compliance Statement: One or more of the following individualized dose reduction techniques were utilized for this examination: 1. Automated exposure control 2. Adjustment of the mA and/or kV according to patient size 3. Use of iterative reconstruction technique Findings: Heterogeneous appearance of the right lower thyroid gland with the complex appearing nodule identified in the right thyroid gland measuring 2.4 cm. The central airways are patent. The heart size grossly appears unremarkable. Coronary artery calcifications identified. Right-sided Port-A-Cath is identified. No radiologically significant mediastinal lymphadenopathy identified. In the subpectoral region of the left axilla, on series 10 image #13, there is a 2.5 cm density identified just inferior to the subclavian vein could be a lymph node. Few other smaller lymph nodes identified in this region likely enlarged lymph nodes. There is faint groundglass nodule identified in the right upper lobe of the lung measuring 9 mm. Minimal atelectasis identified in the left lingula. No evidence of free air identified in the abdomen. The liver appears mildly prominent measuring 20 cm. The spleen measures 15 cm likely hepatosplenomegaly. The gallbladder is mildly distended. The visualized pancreas grossly appears unremarkable. The stomach is minimally distended. The small bowel is nondilated. Anterior abdominal wall moderate size ventral hernia identified containing loops of small bowel without obstruction. The visualized appendix grossly appears unremarkable. Few retroperitoneal lymph nodes identified in the largest measuring 1.3 cm. Feces and gas noted in the colon. Urinary bladder is minimally distended. The bilateral kidneys enhance symmetrically. Moderate aortic atherosclerosis. Moderate degenerative changes lumbar spine. Impression: 1. Enlarged left subpectoral lymph nodes in the left axilla, lymphadenopathy probably related to known malignancy. 2. Nonspecific retroperitoneal lymphadenopathy measuring the largest measuring 1.3 cm. 2. 9 mm groundglass pulmonary right upper lobe of the lung. Follow-up per [facility] guidelines with follow-up CT in 3 months. 4. Hepatosplenomegaly. 5. Anterior abdominal wall ventral hernia containing loops of bowel without obstruction.
== END | disposition home or self-care (01) ==
LOC: CT 14:43
PROVIDERS: ATTEND Internal Medicine Hematology & Oncology
DX: I70.0 Atherosclerosis of aorta (principal); J98.11 Atelectasis; R91.1 Solitary pulmonary nodule; E04.1 Nontoxic single thyroid nodule; C85.84 Other specified types of non-Hodgkin lymphoma, lymph nodes of axilla and upper limb; I25.10 Atherosclerotic heart disease of native coronary artery without angina pectoris; K82.8 Other specified diseases of gallbladder; R16.2 Hepatomegaly with splenomegaly, not elsewhere classified; K43.9 Ventral hernia without obstruction or gangrene; R59.1 Generalized enlarged lymph nodes
CPT/HCPCS: 71260; 74177; Q9966; Q9967

== ENCOUNTER 2019-01-28 08:04 | Outpatient (CLI) | payer OTHER ==
[2019-01-28] VITALS (7 sets, daily range): BP systolic 115–135; BP diastolic 63–79
[~2019-01-28] VITALS: Ht 171.4 cm; Wt 131.5 kg
[~2019-01-28 08:04] MED LIST changes: +ALBU2.5V8 INH; +CARV3.1210 PO; -CARV3.122 PO; -HEPARIN PF 500 UNIT/5 ML DISP.SYRIN. IV ONE; -IOHEXOL 240 MG/ML 50ML VIAL. PO ONE; -IOHEXOL 300 MG/ML 100ML VIAL. IV ONE; -IPRA3AMP NEB; +IPRA3AMP29 NEB; -PROAIR HFA8.5 GM INH
[2019-01-28 08:47] LABS: BASO # 0.1 x10^3/uL (0.0-0.2); BASO % 1 % (0-3); EOS # 0.4 x10^3/uL (0.0-0.7); EOS % 5 % (0-3); HEMATOCRIT 41.6 % (36.0-47.0); HEMOGLOBIN 13.8 g/dL (12.0-15.5); LYMPH # 1.6 x10^3/uL (1.0-4.8); LYMPH % 20 % (24-48); MEAN CORPUSCULAR HEMOGLOBIN 33 pg (25-35); MEAN CORPUSCULAR HGB CONC 33 g/dL (31-37); MEAN CORPUSCULAR VOLUME 99 fL (79-100); MONO # 0.7 x10^3/uL (0.0-1.1); MONO % 8 % (0-9); NEUT # 5.6 x10^3uL (1.8-7.7); NEUT % 66 % (31-73); PLATELET COUNT 251 x10^3/uL (140-400); WHITE BLOOD COUNT 8.4 x10^3/uL (4.0-11.0)
[2019-01-28] MEDS ORDERED: SERT100T PO (08:50)
[2019-01-28] MEDS ORDERED: SACU1TAB PO (08:50)
[2019-01-28] MEDS ORDERED: ONDA8TAB9 PO (08:50)
[2019-01-28] MEDS ORDERED: TRAZ-118 PO (08:50)
[2019-01-28 08:56] LABS: PROTHROMBIN TIME PATIENT 12.3 SEC (11.7-14.0)
[2019-01-28] MEDS ORDERED: LIDOCAINE 1%/EPI 1:100,000 20 ML VIAL. ONE (09:38)
[2019-01-28] MEDS ORDERED: MIDAZOLAM HCL/PF 2 MG/2 ML VIAL. ONE (10:29)
[2019-01-28] MEDS ORDERED: fentaNYL PF VIAL 100 MCG/2 ML VIAL ONE (10:29)
[2019-01-28] MEDS ORDERED: LIDOCAINE 1%/EPI 1:100,000 20 ML VIAL. IJ ONE (10:45)
[2019-01-28] MEDS ORDERED: fentaNYL PF VIAL 100 MCG/2 ML VIAL IV ONE (10:45)
[2019-01-28] MEDS ORDERED: MIDAZOLAM HCL/PF 2 MG/2 ML VIAL. IV ONE (10:45)
--- NOTE | 2019-01-28 11:02 | PDOC ---
BRIEF OPERATIVE NOTE Pre-Op Diagnosis Lymphoma Post-Op Diagnosis same Procedure Performed Port removal Surgeon Russell Anesthesia Type: Conscious Sedation Findings Port removal Complications No immediate KEISHA HERNANDEZ MD Jan 28, 2019 11:02
--- NOTE | 2019-01-28 11:03 | PDOC1 ---
History and Physical Date of Procedure Date of Admission History of Present Illness Reason for Visit Lymphoma Past Medical History Past Medical History see nursing assessment Current Medications Current Medications Current Medications Lidocaine/ Epinephrine (LIDOCAINE 1%-EPI 1:100,000 Multi-Dose) 20 ml STK-MED ONCE .ROUTE ; Start 01/28/19 at 09:38; Stop 01/28/19 at 09:39; Status DC Midazolam HCl (Versed) 2 mg STK-MED ONCE .ROUTE ; Start 01/28/19 at 10:29; Stop 01/28/19 at 10:30; Status DC Fentanyl Citrate (Fentanyl 2ml Vial) 100 mcg STK-MED ONCE .ROUTE ; Start at 10:29; Stop 01/28/19 at 10:30; Status DC Midazolam HCl (Versed) 2 mg 1X ONCE IV ; Start 01/28/19 at 10:45; Stop at 10:46; Status DC Fentanyl Citrate (Fentanyl 2ml Vial) 100 mcg 1X ONCE IV ; Start 01/28/19 at 10: 45; Stop 01/28/19 at 10:46; Status DC Lidocaine/ Epinephrine (LIDOCAINE 1%-EPI 1:100,000 Multi-Dose) 20 ml 1X ONCE IJ ; Start 01/28/19 at 10:45; Stop 01/28/19 at 10:46; Status DC Active Scripts Active Nystop (Nystatin) 60 Gm Powder 1 Alvin TP BID 14 Days Furosemide 40 Mg Tablet 40 Mg PO DAILY Reported Trazodone Hcl 50 Mg Tablet 1 Tab PO QHS Zofran (Ondansetron Hcl) 8 Mg Tablet 1 Tab PO Q8HRS Entresto 24 mg-26 mg Tablet (Sacubitril/Valsartan) 1 Each Tablet 1 Each PO DAILY Zoloft (Sertraline Hcl) 100 Mg Tablet 1 Tab PO DAILY Allergies Allergies: Coded Allergies: Penicillins (Verified Allergy, Intermediate, severe hives, 12/24/17) Physical Exam Vital Signs Vital Signs Date Time Temp Pulse Resp B/P (MAP) Pulse Ox O2 Delivery O2 Flow Rate FiO2 01/28/19 09:23 Room Air 01/28/19 09:06 97.8 94 14 115/64 (81) 98 97.8 Other see nursing pre-op assessment Assessment Assessment Lymphoma Plan Plan Port removal KEISHA HERNANDEZ MD Jan 28, 2019 11:03
--- NOTE | 2019-01-28 11:03 | PDOC ---
MODERATE SEDATION ASSESSMENT RISKS/ALTERNATIVES Risks/Alternatives Risks and alternatives of this type of sedation and procedure discussed with: RISK/ALTERNATIVES: Patient H & P ON CHART H & P H & P on chart and reviewed for co-morbid conditions and appropriate labs. H&P ON CHART: Yes STATUS PREG STATUS ASSESSED: Yes MEDS/ALLERGIES REVIEWED Meds/Allergies Reviewed Medications and Allergies including time and route of recently administered narcotics and sedatives. MEDS/ALLERGIES REVIEWED: Yes ASA RATING ASA RATING: II AIRWAY ASSESSMENT Airway Assessment Airway patency, oral function limitations, presence of caps, crowns, dentures, partials, and ability to extend neck assessed. AIRWAY ASSESSMENT: Yes MALLAMPATI SCORE MALLAMPATI SCORE: II PRE-SEDATION ASSESSMENT PRE-SEDATION ASSESSMENT: Yes KEISHA HERNANDEZ MD Jan 28, 2019 11:03
--- NOTE | 2019-01-28 11:59 | RAD ---
Procedure: Fluoroscopic guided Port-A-Cath removal Clinical Indication: 58-year-old with lymphoma no longer requiring chemotherapy Sedation: Conscious sedation was administered with a total intraprocedural [id number] time of 36 minutes. The patient was monitored by a qualified independent observer throughout the time of sedation. Please refer to the medical record for exact doses of medications utilized to achieve moderate sedation. Antibiotics: None Exposure: Kerma-Area Product: 1 Gycm2 Sterility: All elements of maximal sterile barrier technique including the use of a cap, mask, sterile gown, sterile gloves, large sterile sheet, appropriate hand hygiene, and 2% chlorhexidine for cutaneous antisepsis (or acceptable alternative antiseptic per current guidelines) were followed for this procedure. If ultrasound guidance was utilized, sterile ultrasound techniques were followed including use of a sterile probe cover. Consent: The procedure was explained in its entirety to the patient or the patients designated apprenticeship training representative by a member of the treatment team, including a discussion of the risks, benefits and commonly accepted alternatives to the procedure, as well as the expected consequences of no therapy whatsoever. Discussion of the risks included, but was not limited to, those that are most frequent and those that are rare but possibly severe or life-threatening, as well as the possibility of unforeseen complications. Technique and Findings: Following informed consent, the patient was prepped and draped in usual sterile fashion. Limited fluoroscopic spot view the chest revealed an intact right IJ Port-A-Cath. 1% lidocaine was used to achieve local anesthesia over the area of interest. A small dermatotomy was made. The port was removed, and the pocket was copiously irrigated with vancomycin impregnated sterile saline. This was then closed with deep interrupted and running subcuticular 4-0 Vicryl suture. Complications: No immediate Impression: 1. Fluoroscopic guided Port-A-Cath removal as described
--- NOTE | 2019-01-28 13:30 | NUR ---
[facility] instructions and discharge home medications, follow up, signs and symptoms requiring further attention, and wound care reviewed with Patient and a copy given. All questions have been answered and understanding verbalized. The following instructions and handouts were given: post moderate sedation and post port removal Discontinued lines and drains: perhiperal IV Patient discharged to home with case management social worker via private vehicle.
== END 2019-01-28 13:45 | disposition home or self-care (01) ==
LOC: INTRAD 08:04
PROVIDERS: ATTEND Internal Medicine Hematology & Oncology
DX: Z45.2 Encounter for adjustment and management of vascular access device (principal); C85.90 Non-Hodgkin lymphoma, unspecified, unspecified site; Z88.0 Allergy status to penicillin; Z79.899 Other long term (current) drug therapy
CPT/HCPCS: 36415; 36590; 77001; 85025; 85610; 99152; 99153; J2250; J3010; J3490